=== PATIENT | female | born 1965 | race Caucasian/White ===

== ENCOUNTER → 2019-03-23 | Emergency (ER) | payer OTHER ==
[~2019-03-23] VITALS: Ht 162.6 cm; Wt 113.4 kg
[~2019-03-23] MED LIST: AMITRIPTYLINE H50 MG PO; BUPROPION HCL100 M1 PO; DOXYCYCLINE HY100 MG PO; DULOXETINE HCL30 MG PO; GABAPENTIN800 MG PO; GUAIFENESIN AC473 ML PO; LEVOTHYROXINE100 MCG PO; LEVOTHYROXINE112 MCG PO; LISINOPRIL10 MG PO; OMEPRAZOLE40 MG PO; VALACYCLOVIR1000 MG PO; VITAMIN D250000 UNIT PO
--- OUTSIDE RECORDS SUMMARY | ~2019-03-23 | XMS | Encounter Summary ---
Demographics + + + | Address | [address] | | | [place] [address] | + + + | Home Phone | | + + + | Preferred Language | Unknown | + + + | Marital Status | | + + + | Nondenominational Affiliation | CAT | + + + | Race | White | + + + | Ethnic Group | Not or | + + + Author + + + | Author | [facility] | + + + | Organization | [facility] | + + + | Address | Unknown | + + + | Phone | Unavailable | + + + Support + + +---------+ + | Name | Relationship | Address | Phone | + + +---------+ + | Gerry Moreno | ECON | Unknown | | + + +---------+ + Care Team Providers + +------+ + | Care Telephone Clerks Supervisor Name | Role | Phone | + +------+ + | Felicitas Candelario | PCP | Unavailable | + +------+ + Reason for Visit + + + | Reason | Comments | + + + | Refill Request | | + + + Encounter Details +--------+--------+ + + + | Date | Type | Department | Care Team | Description | +--------+--------+ + + + | 09/27/ | Refill | Otolaryngology | Phoenix Garza, | Refill Request | | 2015 | | Otology Services at | MD [address] | | | | | PPV [address] | [facility] | | | | | [facility] | [place], [place] | | | | | Mailcode: [address]01 | [address] | | | | | PhysicianMoriahs Pedro | [phone] | | | | | [place], [place] | | | | | | [address] | | | | | | [phone] | | | +--------+--------+ + + + Social History + +-------+ +--------+------+ | Tobacco Use | Types | Packs/Day | Years | Date | | | | | Used | | + +-------+ +--------+------+ | Never Smoker | | | | | + +-------+ +--------+------+ + +---+---+---+ | Smokeless Tobacco: | | | | | Never Used | | | | + +---+---+---+ + + +---------+ + | Alcohol Use | Drinks/Week | oz/Week | Comments | + + +---------+ + | Not Asked | | | | + + +---------+ + + + + | Sex Assigned at | Date Recorded | | | | + + + | Not on file | | + + + + + + + | Job Start Date | Occupation | Industry | + + + + | Not on file | Not on file | Not on file | + + + + + + + + | Travel History | Travel Start | Travel End | + + + + + + | No recent travel history available. | + + documented as of this encounter Plan of Treatment Not on filedocumented as of this encounter Visit Diagnoses Not on filedocumented in this encounter"
--- OUTSIDE RECORDS SUMMARY | ~2019-03-23 | XMS | Encounter Summary ---
Demographics + + + | Address | [address] | | | [place] [address] | + + + | Home Phone | | + + + | Preferred Language | Unknown | + + + | Marital Status | | + + + | Protestant Affiliation | CAT | + + + | Race | White | + + + | Ethnic Group | Not or | + + + Author + + + | Organization | Unknown | + + + | Address | Unknown | + + + | Phone | Unavailable | + + + Support + + +---------+ + | Name | Relationship | Address | Phone | + + +---------+ + | Gerry Moreno | ECON | Unknown | | + + +---------+ + Care Team Providers + +------+ + | Care Judge Name | Role | Phone | + +------+ + PCP | Unavailable | + +------+ + Encounter Details +--------+ + + + + | Date | Type | Department | Care Team | Description | +--------+ + + + + | 09/25/ | Office | | Note, Outpatient | Progress Note | | 2004 | Visit-Trans | | Clinic | | | | cribed | | | | +--------+ + + + + Social History + +-------+ +--------+------+ | Tobacco Use | Types | Packs/Day | Years | Date | | | | | Used | | + +-------+ +--------+------+ | Never Assessed | | | | | + +-------+ +--------+------+ + + + | Sex Assigned at [...] + + documented as of this encounter Progress Notes Interface, Mortuary Operations Manager In - 05/23/2005 9:03 AM PDT [id number] RIGO MENDOZA [facility] Date: 09/25/2004 Clinic: OTOLOGY CLINIC Subjective : Ms. 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 She now has symptoms of left-sided headache and hearing loss and a left middle ear effusion as well as MRI suggesting a left-sided middle fossa CSF leak. She is therefore here for a preoperative visit for her impending left temporal craniotomy, middle fossa exploration, and possible repair of CSF leak. She will also be consented for a lumbar drain and possible lumbar peritoneal shunt. Plan: After extensive PAR discussion with the patient, all questions were answered and consent was obtained. The patient was seen and examined by Dr. Jhoan Benton. MD Jhoan Hernandez M.D., F.A.C.S / [place] [id number] / [id number] / [id number] / documented i n this encounter Plan of Treatment Not on filedocumented as of this encounter Visit Diagnoses Not on filedocumented in this encounter"
--- OUTSIDE RECORDS SUMMARY | ~2019-03-23 | XMS | Encounter Summary ---
Demographics + + + | Address | [address] | | | [place] [address] | + + + | Home Phone | | + + + | Preferred Language | Unknown | + + + | Marital Status | | + + + | Restoration Affiliation | CAT | + + + [...] Team Providers + +------+ + | Care Paper Slitter Name | Role | Phone | + +------+ + PCP | Unavailable | + +------+ + Encounter Details +--------+ + + + + | Date | Type | Department | Care Team | Description | +--------+ + + + + | 04/13/ | Office | | Note, Outpatient | Progress Note | | 2005 | Visit-Trans | | Clinic | | [...] as of this encounter Progress Notes Interface, Lead Painter In - 05/24/2005 9:05 AM PDT [id number] RIGO MENDOZA [facility] Date: 04/13/2005 Clinic: Otology Neurotology Clinic Subjective: 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 She denies any aural fullness or otorrhea or rhinorrhea. She does state that since being seen in last December, she had a grand mal seizure as she was being weaned off Xanax and changed to citalopram for her anxiety. She has had no numbness, weakness, tingling, or vision change. A CT scan was done after this seizure and was negative. She was further evaluated by her PCP who is not initiating more of a workup at this point. Physical Examination: Her ears were examined under the high-power binocular operating microscope. On both sides, the tympanic membranes are clear and intact. There are no effusions present. There is normal mobility of the tympanic membranes on both sides. Both incisions are healed very nicely. Her cranial nerve function is intact and equal bilaterally. On the left, her temporalis muscle is somewhat heaped up, thick and bulky. This is nontender for her. Assessment and Plan: Status post bilateral middle fossa encephalocele repair, stable. She describes headache localized to the temporal region, on the left greater than the right. This possibly represents muscle tension headache. Postsurgically, everything looks good. She was seen and examined with Dr. Benton. We will see her back in 4 months. Mike Ken M.D. Jhoan Benton M.D., F.A.C.S. Living Coach Department of Otolaryngology/ Head and Neck Surgery and Department of Neurosurgery / HS [id number] / [id number] / [id number] / [id number] Electronically signed by Jhoan Benton 05-19-2005 01:13:44 PM documented i n this encounter Plan of Treatment Not on filedocumented as of this encounter Visit Diagnoses Not on filedocumented in this encounter"
--- OUTSIDE RECORDS SUMMARY | ~2019-03-23 | XMS | Encounter Summary ---
Demographics + + + | Address | [address] | | | [place] [address] | + + + | Home Phone | | + + + | Preferred Language | Unknown | + + + | Marital Status | | + + + | Jain Affiliation | CAT | + + + [...] Phone | + + +---------+ + | Geryr Moreno | ECON | Unknown | | + + +---------+ + Care Team Providers + +------+ + | Care Hr Recruiter Name | Role | Phone | + [...] as of this encounter Progress Notes Interface, Clinical Research Manager In - 05/24/2005 9:05 AM PDT [id number] RIGO MENDOZA [facility] Date: 04/13/2005 Clinic: I saw the patient with the resident. The resident dictated a full and complete note, containing within are my findings based on my independent history and physical examination including examination under the operating microscope. She has no evidence of recurrent CSF leak. Both middle ears are fully aerated without any fluid. She is doing well with well-healed incisions. The patient appears normal bilaterally. Jhoan Benton M.D., F.A.C.S. Events Solutions Consultant Department of Otolaryngology/ Head and Neck Surgery and Department of Neurosurgery [facility] / [id number] / [id number] / [id number] / [id number] Electronically signed by Jhoan Benton 05-19-2005 01:14:08 PM documented i n this encounter Plan of Treatment Not on filedocumented as of this encounter Visit Diagnoses Not on filedocumented in this encounter"
--- OUTSIDE RECORDS SUMMARY | ~2019-03-23 | XMS | Encounter Summary ---
Demographics + + + | Address | [address] | | | [place] [address] | + + + | Home Phone | | + + + | Preferred Language | Unknown | + + + | Marital Status | | + + + | Jew Affiliation | CAT | + + + | Race | White | + + + | Ethnic Group | Not or | + + + Author + + + | Author | [facility] | + + + | Organization | [facility] | + + + | Address | Unknown | + + + | Phone | Unavailable | + + + Support + + +---------+ + | Name | Relationship | Address | Phone | + + +---------+ + | Gerry Moreno | ECON | Unknown | | + + +---------+ + Care Team Providers + +------+ + | Care Copying Machine Repairer Name | Role | Phone | + [...] Description | +--------+--------+ + + + | 01/19/ | Refill | Otolaryngology | Phoenix Garza, | Refill Request | | 2017 | | Otology Services at | MD [address] | | | | | [facility] [address] | [facility] | | | | | [facility] | [place], [place] | | | | | Mailcode: [address]01 | [address] | | | | | PhysicianMoriahs Pedro | [phone] | | | | | [place], [place] | | | | | | [address] | | | | | | [phone] | | | +--------+--------+ + + + [...]
--- OUTSIDE RECORDS SUMMARY | ~2019-03-23 | XMS | Encounter Summary ---
Demographics + + + | Address | [address] | | | [place] [address] | + + + | Home Phone | | + + + | Preferred Language | Unknown | + + + | Marital Status | | + + + | Jainism Affiliation | CAT | + + + | Race | White | + + + | Ethnic Group | Not or | + + + Author + + + | Author | [facility] | + + + | Organization | [facility] | + + + | Address | Unknown | + + + | Phone | Unavailable | + + + Support + + +---------+ + | Name | Relationship | Address | Phone | + + +---------+ + | Gerry Moreno | ECON | Unknown | | + + +---------+ + Care Team Providers + +------+ + | Care Hand Paster Name | Role | Phone | + +------+ + | Felicitas Candelario | PCP | Unavailable | + +------+ + Reason for Visit + + + | Reason | Comments | + + + | Evaluation of test | | | results | | + + + | Returning Phone Call | | + + + Encounter Details +--------+ + + + + | Date | Type | Department | Care Team | Description | +--------+ + + + + | 05/03/ | Telephone | Otolaryngology | Phoenix Garza, | Evaluation of test | | 2017 | | Otology Services at | [address] | results; Returning | | | | P[facility] [address] | [facility] | Phone Call | | | | [facility] | [place], [place] | | | | | Mailcode: PV01 | [address] | | | | | [facility] | [phone] | | | | | [place], [place] | | | | | | [address] | | | | | | [phone] | | | +--------+ + + + [...]
--- OUTSIDE RECORDS SUMMARY | ~2019-03-23 | XMS | Encounter Summary ---
Demographics + + + | Address | [address] | | | [place] [address] | + + + | Home Phone | | + + + | Preferred Language | Unknown | + + + | Marital Status | | + + + | Mormonism Affiliation | CAT | + + + | Race | White | + + + | Ethnic Group | Not or | + + + Author + + + | Author | [facility] | + + + | Organization | [facility] | + + + | Address | Unknown | + + + | Phone | Unavailable | + + + Support + + +---------+ + | Name | Relationship | Address | Phone | + + +---------+ + | Gerry Moreno | ECON | Unknown | | + + +---------+ + Care Team Providers + +------+ + | Care Pig Farm Manager Name | Role | Phone | + [...] Description | +--------+--------+ + + + | 08/26/ | Refill | Otolaryngology | Phoenix Garza, | Refill Request | | 2015 | | Otology Services at | MD [address] | | | | | PPV [address] | [facility] | | | | | [facility] | [place], [place] | | | | | Mailcode: PV01 | [address] | | | | | PhysicianMoriahs Pedro | [phone] | | | | | [place], [place] | | | | | | [address] | | | | | | [phone] | | | +--------+--------+ + + + [...]
--- OUTSIDE RECORDS SUMMARY | ~2019-03-23 | XMS | Encounter Summary ---
Demographics + + + | Address | [address] | | | [place] [address] | + + + | Home Phone | | + + + | Preferred Language | Unknown | + + + | Marital Status | | + + + | Nondenominational Affiliation | CAT | + + + | Race | White | + + + | Ethnic Group | Not or | + + + Author + + + | Author | [facility] | + + + | Organization | [facility] | + + + | Address | Unknown | + + + | Phone | Unavailable | + + + Support + + +---------+ + | Name | Relationship | Address | Phone | + + +---------+ + | Gerry Moreno | ECON | Unknown | | + + +---------+ + Care Team Providers + +------+ + | Care Wool Shearer Name | Role | Phone | + +------+ + PCP | Unavailable | + +------+ + Encounter Details +--------+ + + + + | Date | Type | Department | Care Team | Description | +--------+ + + + + | 11/26/ | Results | Neurosurgery [address] | Omar Pratt, | | | 2002 | Only | [address] | | | | | | [facility] | | | | | | Mailcode:[id number] | | | | | | [place] [employer] | | | | | | [place], [place] | | | | | | [address] | | | | | | [phone] | | | +--------+ + + + [...] Not on filedocumented as of this encounter Procedures + +--------+ + + + | Procedure Name | Priori | Date/Time | Associated Diagnosis | Comments | | | ty | | | | + +--------+ + + + | SURGICAL PATHOLOGY | Routin | 11/26/2002 | | Results for this | | | e | | | procedure are in the | | | | | | results section. | + +--------+ + + + documented in this encounter Results SURGICAL PATHOLOGY (11/26/2002) + + + + + + | Component | Value | Ref Range | Performed | Pathologist | | | | | At | Signature | + + + + + + | SURGICAL | SOURCE OF SPECIMEN:A | | [facility] | | | PATHOLOGY | Brain Final Pathologic | | DEPARTMENT | | | | Diagnosis:Brain, | | OF | | | | excision: - | | PATHOLOGY | | | | Fragment of gliotic, | | | | | | dysplastic hwang matter | | | | | | Case reviewed | | | | | | by:Jadon Mejia, | | | | | | M.Kari/NeuropathologistT:0 | | | | | | 11/28/02:re I have | | | | | | reviewed all diagnostic | | | | | | slides and have edited | | | | | | the gross | | | | | | and/ormicroscopic | | | | | | portion of this report | | | | | | as part of my pathologic | | | | | | assessment andfinal | | | | | | diagnosis. Clinical | | | | | | History:The patient is a | | | | | | 37 year old female who | | | | | | presents with a right | | | | | | earcerebrospinal fluid | | | | | | leak. Gross | | | | | | Description:One specimen | | | | | | is received in formalin | | | | | | labeled, | | | | | | "brain". Received on | | | | | | Telfais one irregular | | | | | | fragment of soft to | | | | | | firm, hendricks to red tissue | | | | | | measuring 0.8x 0.5 x 0.2 | | | | | | cm. Cassette Index:A1, | | | | | | ASSP:GM:reRendering | | | | | | Diagnostician: Malvin | | | | | | cristian Mejia | | | | | | MMaryPathologistElectroni | | | | | | anthony Signed | | | | | | 11/28/2002Comment: | | | | | | SOURCE OF SPECIMEN: | | | | | | Brain | | | | + + + + + + + + | Specimen | + + | | + + + + + + + | Performing | Address | City/State/Zipcode | Phone Number | | Organization | | | | + + + + + | [facility] | [address] | [place] [address] | | | PATHOLOGY | [address] | | | + + + + + | [facility] | [address] | [place] [address] | | | PATHOLOGY | [address] | | | + + + + + documented in this encounter Visit Diagnoses Not on filedocumented in this encounter
--- OUTSIDE RECORDS SUMMARY | ~2019-03-23 | XMS | Encounter Summary ---
Demographics + + + | Address | [address] | | | [place] [address] | + + + | Home Phone | | + + + | Preferred Language | Unknown | + + + | Marital Status | | + + + | Bahai Affiliation | CAT | + + + [...] Team Providers + +------+ + | Care Chronic Disease Epidemiologist Name | Role | Phone | + +------+ + PCP | Unavailable | + +------+ + Encounter Details +--------+ + + + + | Date | Type | Department | Care Team | Description | +--------+ + + + + | 10/15/ | Discharge | | Summary, Discharge | D/C Summary ODDS | | 2003 | Summary-Tra | | | | | | nscribed | | | | +--------+ + + [...] + + documented as of this encounter Discharge Summaries Interface, Reduction Furnace Operator In - 05/23/2005 12:40 AM PDT [id number] 10/15/2004 [id number] RIGO MENDOZA Admission Date: 10/12/2004 Discharge Date: 10/15/2004 Staff Physician: Omar Pratt Jr., M.D. Principal Final Diagnosis: Tegmen defect. Principal Procedure: Left middle cranial fossa repair with a lumbar drain placement. Reason for Admission and Hospital Course: This is a 39-year-old female with a history of a right middle fossa encephalocele. She presented with symptoms that were similar to prior to her encephalocele removal and it was assumed that she had a probable left middle fossa CSF leak. The patient was brought to the operating room on October 12, 2004 for repair. The patient tolerated the procedure well. During the operation, she had a lumbar drain placed. It put out 15 cc an hour immediately postoperatively. Her neuro examination was intact. Her cranial nerves were intact. She has 5/5 strength in the upper and lower extremities. By postoperative day number one the patient was on devlin status doing well. On postoperative day number two at about 10:00 p.m. her lumbar drain was clamped. By postoperative day number three the patient had demonstrated no leaking from her wound or any other orifice in her head. She had minimal complaints of pain as well as a tiny bit of dizziness although no headache. Her neuro examination was nonfocal and normal. She did have a normal bite; however, it was difficult to open her mouth secondary to temporalis manipulation during the case. The patient will be seen by physical therapy and occupational therapy today if she gets up and ambulates she is okay to go home. Again, the lumbar drain was removed on postoperative day number three. Discharge Instruction(s): Diet: Not dictated. Activity: Not dictated. Followup: Not dictated. Isamar Zacarias Jr., M.D. VW/x90 [id number] Electronically signed by Omar Pratt 10-22-2004 02:26:41 PM documented i n this encounter Plan of Treatment Not on filedocumented as of this encounter Visit Diagnoses Not on filedocumented in this encounter"
--- OUTSIDE RECORDS SUMMARY | ~2019-03-23 | XMS | Encounter Summary ---
Demographics + + + | Address | [address] | | | [place] [address] | + + + | Home Phone | | + + + | Preferred Language | Unknown | + + + | Marital Status | | + + + | Anglican Affiliation | CAT | + + + | Race | White | + + + | Ethnic Group | Not or | + + + Author + + + | Author | [facility] | + + + | Organization | [facility] | + + + | Address | Unknown | + + + | Phone | Unavailable | + + + Support + + +---------+ + | Name | Relationship | Address | Phone | + + +---------+ + | Gerry Moreno | ECON | Unknown | | + + +---------+ + Care Team Providers + +------+ + | Care Assistant Professor Name | Role | Phone | + [...] Description | +--------+--------+ + + + | 11/23/ | Refill | Otolaryngology | Phoenix Garza, | Refill Request | | 2016 | | Otology Services at | MD [address] | | | | | [address] | [facility] | | | | | [facility] | [place], [place] | | | | | Mailcode: [address] | [address] | | | | | PhysicianMoriahs Pedro | [phone] | | | | | [place], [place] | | | | | | [address] | | | | | | [phone] | | | +--------+--------+ + + + [...]
--- OUTSIDE RECORDS SUMMARY | ~2019-03-23 | XMS | Encounter Summary ---
Demographics + + + | Address | [address] | | | [place] [address] | + + + | Home Phone | | + + + | Preferred Language | Unknown | + + + | Marital Status | | + + + | Jainism Affiliation | CAT | + + + | Race | White | + + + | Ethnic Group | Not or | + + + Author + + + | Author | [facility] | + + + | Organization | [facility] | + + + | Address | Unknown | + + + | Phone | Unavailable | + + + Support + + +---------+ + | Name | Relationship | Address | Phone | + + +---------+ + | Gerry Moreno | ECON | Unknown | | + + +---------+ + Care Team Providers + +------+ + | Care Abrasive Coating Machine Operator Name | Role | Phone | + +------+ + | Felicitas Candelario | PCP | Unavailable | + +------+ + Encounter Details +--------+ + + + + | Date | Type | Department | Care Team | Description | +--------+ + + + + | 01/26/ | Document-Sc | Health Information | Unknown . | | | 2015 | anned | Services [address] | | | | | [address] | | | | | | Road Mailcode: | | | | | | [address] | | | | | | [facility] | | | | | | [place], [place] | | | | | | [address] | | | | | | [phone] | | | +--------+ + + + [...] | + +--------+ + + + | RADIOLOGY | | 01/27/2016 | | Results for this | | | | 12:00 AM | | procedure are in the | | | | PDT | | results section. | + +--------+ + + + documented in this encounter Results RADIOLOGY (01/27/2016 12:00 AM PDT) + + + | Narrative | Performed At | + + + | | | + + + documented in this encounter Visit Diagnoses Not on filedocumented in this encounter"
--- OUTSIDE RECORDS SUMMARY | ~2019-03-23 | XMS | Encounter Summary ---
Demographics + + + | Address | [address] | | | [place] [address] | + + + | Home Phone | | + + + | Preferred Language | Unknown | + + + | Marital Status | | + + + | Buddhist Affiliation | CAT | + + + [...] Team Providers + +------+ + | Care Research Affiliate Name | Role | Phone | + +------+ + PCP | Unavailable | + +------+ + Encounter Details +--------+ + + + + | Date | Type | Department | Care Team | Description | +--------+ + + + + | 10/12/ | Orders Only | | Record, Operation | | | 2004 | | | | | +--------+ + + [...] | + +--------+ + + + | OPERATION RECORD | | 10/12/2004 | | Results for this | | | | | | procedure are in the | | | | | | results section. | + +--------+ + + + documented in this encounter Results OPERATION RECORD (10/12/2004) + + | Transcriptions | + + | Interface, Guidance Consultant In - 10/14/2005 9:09 PM PST | | [id number] | | [id number] RIGO MENDOZA | | | | Date: 10/12/2004 | | | | Attending Surgeon: Omar Pratt M.D. | | | | Monitor Tech(s): Warren Oneill M.D. | | | | Co-Surgeon: | | Jhoan Benton M.D., F.A.C.S. | | | | Preoperative Diagnosis(es): | | Left temporal encephalocele. | | | | Postoperative Diagnosis(es): | | Left temporal encephalocele. | | | | Procedures Performed: | | 1. Left temporal craniotomy for repairs of encephalocele. | | 2. Norian cranioplasty. | | 3. Utilization of high-power microscopy for microdissection. | | 4. Placement of lumbar drain. | | 5. Facial nerve monitoring. | | | | | | Anesthesia: | | General endotracheal. | | | | Estimated Blood Loss: | | 200 mL. | | | | Findings: | | 1. Thin left mastoid air cells with small bony defects. | | 2. Small dural defect, medial to mastoid. | | | | | | Drain: | | Lumbar drain. | | | | Complications: | | | | Specimens: | | None. | | | | Indications: | | Mrs. 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 The | | patient presented more recently with left sided headaches and decreased | | hearing on the left. The patient underwent MRI which demonstrated possible | | encephalocele on the left. | | | | Procedure: | | The patient was properly identified in the preoperative area. She was then | | brought to the operating room, placed under general anesthesia, and | | intubated. The patient was then placed on the operating table in the right | | lateral decubitus position. The patient's lower lumbar region was prepped | | and draped in normal sterile fashion. | | | | We began with the lumbar spine needle which was inserted near the midline | | into the lower lumbar level. We placed the needle into the thecal sac and | | obtained clear CSF on return. The lumbar drainage catheter was then | | inserted. The needle was then removed and the remainder of the catheter | | was connected to the drainage system. The patient at this point was placed | | back in the supine position and was placed in a Flores warhead maintenance specialist which | | was attached to the [place] frame. The facial nerve electrodes were | | placed per standard protocol. The patient's head was turned to the right, | | and a shoulder roll was placed in the left shoulder. The patient's left | | temporal region was prepped and draped in a normal sterile fashion. | | | | We began by making an approximately 7-cm incision in the left temporal | | region. The incision was previously instilled with 1% lidocaine mixed with | | Marcaine. Incision was carried along the subcutaneous tissues and was made | | with a #10 blade. We placed Nestor clips for hemostasis. We were able to | | divide the temporalis muscle with multiple electrocautery. We placed | | cerebellar retractors and then Gelpi retractors for adequate exposure. We | | were eventually able to expose the zygoma with the aid of blunt dissection | | with the joker instrument as well as sharp dissection with a monopolar. We | | also were able to elevate the temporalis muscle with the joker instrument | | as well. Once we were comfortable with the exposure we then proceeded with | | performance of a left temporal craniotomy in a standard fashion. We | | created 8-mm bur hole with Anspach drill. The craniotomy was performed | | with the craniotome in the standard fashion. The bone flap was removed. | | Of note the underlying dura was markedly adherent to the inner table of the | | skull flap. We did not encounter a durotomy as the inferior portion of our | | craniotomy appeared. The dura was repaired primarily initially and was | | noted to be under tension inferiorly; so we therefore placed a Lyoplant | | duraplasty in this region. We did remove temporal bone with the Adson | | rongeurs to improve our exposure and as well to expose the inferior portion | | of the dura to assist in our closure. At this point, once this was | | accomplished, the microscope which had been previously prepped and draped | | was then brought into the field, we were able to investigate the temporal | | floor on the left to identify this patient's encephalocele. There did not | | appear to be one on initial inspection. We were able to identify the | | greater superficial petrosal nerve which was intact as well as the carotid | | artery which was verified with the micro Doppler. In addition, there was a | | fair amount of bleeding from the middle meningeal artery as it was entering | | the foramen spinosum. This was coagulated with bipolar and cut. There was | | no further bleeding. There were no obvious dural defects which were noted. | | We did however visualize what appeared to be thinning of the mastoid air | | cells. There were several small bony defects which were identified on | | further inspection. In addition, we did note a small dural defect which | | was noted medial to the mastoid. There however did not appear to be any | | further bony defects which were noted. At this point, we were satisfied | | with our exploration and proceeded with performance of a Norian | | cranioplasty over the mastoid to correct the bony defects which were | | identified. In addition, we placed Lyoplant in areas which we felt the | | dura was thinned. After this was performed, we covered this with DuraGen. | | This was followed by a Tisseel. There was no CSF leak noted. At this | | point, once we were satisfied with our repair, we then proceeded with wound | | closure. Several dural tack ups were placed at the periphery of the | | circumference of the craniotomy and these were sewn in with 4-0 Nurolon. | | The bone flap itself was replaced with the Synthes cranial plating set. At | | this point, the wound was copiously irrigated and dried. The temporalis | | muscle was reapproximated with 0 Vicryl in interrupted fashion. The | | subcutaneous tissues were closed with 3-0 Vicryl in interrupted fashion and | | the skin was finally closed 4-0 Rapide in running fashion. The wound was | | copiously irrigated, dried, and bacitracin ointment was applied. The | | patient was removed from [place] warhead maintenance specialist, extubated, and transferred | | to her ICU bed uneventfully. There were no complications. | | | | Dr. Omar Pratt and Dr. Jhoan Benton were present for the critical | | portions of this case. | | | | | | | | | | Warren Oneill M.D. | | | | | | | | Omar Pratt M.D. | | | | WR / HS | | [id number] / [id number] / [id number] / [id number] | | | | | | | | | | | | Electronically signed by Omar Pratt 10-15-2004 05:42:14 PM | + + documented in this encounter Visit Diagnoses Not on filedocumented in this encounter"
--- OUTSIDE RECORDS SUMMARY | ~2019-03-23 | XMS | Encounter Summary ---
Demographics + + + | Address | [address] | | | [place] [address] | + + + | Home Phone [...] Team Providers + +------+ + | Care Ag Equipment Field Service Technician Name | Role | Phone | + [...] | [facility] [address] | [facility] | | | | | [facility] | [place], [place] | | | | | Mailcode: PV01 | [address] | | | | | PhysicianMoriahs Pedro | [phone] | | | | | [place], [place] | | | | | | [address] | | | | | | [phone] | | | +--------+--------+ + + + [...]
--- OUTSIDE RECORDS SUMMARY | ~2019-03-23 | XMS | Encounter Summary ---
Demographics + + + | Address | [address] | | | [place] [address] | + + + | Home Phone | | + + + | Preferred Language | Unknown | + + + | Marital Status | | + + + | Amish Affiliation | CAT | + + + | Race | White | + + + | Ethnic Group | Not or | + + + Author + + + | Author | [facility] | + + + | Organization | [facility] | + + + | Address | Unknown | + + + | Phone | Unavailable | + + + Support + + +---------+ + | Name | Relationship | Address | Phone | + + +---------+ + | Gerry Moreno | ECON | Unknown | | + + +---------+ + Care Team Providers + +------+ + | Care Irrigator Name | Role | Phone | + [...] Description | +--------+--------+ + + + | 12/23/ | Refill | Otolaryngology | Phoenix Garza, | Refill Request | | 2016 | | Otology Services at | MD [address] | | | | | [facility] [address] | [facility] | | | | | [facility] | [place], [place] | | | | | Mailcode: [address] | [address] | | | | | PhysicianMoriahs Pedro | [phone] | | | | | [place], [place] | | | | | | [address] | | | | | | [phone] | | | +--------+--------+ + + + [...]
--- OUTSIDE RECORDS SUMMARY | ~2019-03-23 | XMS | Encounter Summary ---
Demographics + + + | Address | [address] | | | [place] [address] | + + + | Home Phone | | + + + | Preferred Language | Unknown | + + + | Marital Status | | + + + | Sabianism Affiliation | CAT | + + + | Race | White | + + + | Ethnic Group | Not or | + + + Author + + + | Author | [facility] | + + + | Organization | [facility] | + + + | Address | Unknown | + + + | Phone | Unavailable | + + + Support + + +---------+ + | Name | Relationship | Address | Phone | + + +---------+ + | Gerry Moreno | ECON | Unknown | | + + +---------+ + Care Team Providers + +------+ + | Care Physician Practice Market Manager Name | Role | Phone | + +------+ + | Samy Carlos DO | PCP | Unavailable | + +------+ + Reason for Visit +--------+ + | Reason | Comments | +--------+ + | Other | csf leak | +--------+ + Encounter Details +--------+ + + + + | Date | Type | Department | Care Team | Description | +--------+ + + + + | 05/16/ | Emergency | [facility] Emergency | | | | 2010 | | Department [address] | | | | | [address] | | | | | | [facility] | | | | | | [place] [address] | | | | | | [phone] | | | +--------+ + + + + Social History + +-------+ +--------+------+ | Tobacco Use | Types | Packs/Day | Years | Date | | | | | Used | | + +-------+ +--------+------+ | Never Smoker | | | | | + +-------+ +--------+------+ + + +---------+ + | Alcohol Use [...]
--- OUTSIDE RECORDS SUMMARY | ~2019-03-23 | XMS | Encounter Summary ---
Demographics + + + | Address | [address] | | | [place] [address] | + + + | Home Phone | | + + + | Preferred Language | Unknown | + + + | Marital Status | | + + + | Evangelical Affiliation | CAT | + + + [...] Team Providers + +------+ + | Care Motor Overhauler Name | Role | Phone | + +------+ + PCP | Unavailable | + +------+ + Encounter Details +--------+ + + + + | Date | Type | Department | Care Team | Description | +--------+ + + + + | 08/14/ | Office | | Note, Outpatient | [...] as of this encounter Progress Notes Interface, Starter Mechanic In - 05/23/2005 8:26 AM PDT [id number] RIGO MENDOZA [facility] Date: 08/14/2004 Clinic: Otology Clinic Subjective: Ms. Moreno is a patient who had previous right middle fossa encephalocele that was repaired on November 2002. She was last seen by Dr. Benton in December 2003. Over the last 6 months, she has developed fullness and decreased hearing in her left ear. She has also had severe left-sided headaches. She denies any vertigo or dysequilibrium. These symptoms are very similar to the symptoms she had tolerated after her right-sided middle fossa encephalocele. A recent MRI scan shows significant fluid in the mastoid as well as high signal of fluid in the IAC. Physical examination: A 260 forks were negative bilaterally. A 512 forks were positive bilaterally. Ears were examined under the high-powered binocular operating microscope. On the right, the TM was translucent and intact without evidence of effusion. Middle ear was clear of disease. In the left, there was significant middle ear effusion and decreased mobility of the drum on insufflation. Impression: The patient with previous right-sided middle ear encephalocele now with similar symptoms on the left and evidence of a middle ear effusion. Given the MRI and the effusion in the middle ear, this is definitely concerning for a left-sided middle fossa encephalocele. Dr. Benton will review the scans and plan surgery appropriately for this patient. We will be in contact with him next week. Manuel Godoy MD Resident Otolaryngology Clinic / [place] [id number] / [id number] / [id number] / documented i n this encounter Plan of Treatment Not on filedocumented as of this encounter Visit Diagnoses Not on filedocumented in this encounter"
--- OUTSIDE RECORDS SUMMARY | ~2019-03-23 | XMS | Encounter Summary ---
Demographics + + + | Address | [address] | | | [place] [address] | + + + | Home Phone | | + + + | Preferred Language | Unknown | + + + | Marital Status | | + + + | Church Affiliation | CAT | + + + | Race | White | + + + | Ethnic Group | Not or | + + + Author + + + | Author | [facility] | + + + | Organization | [facility] | + + + | Address | Unknown | + + + | Phone | Unavailable | + + + Support + + +---------+ + | Name | Relationship | Address | Phone | + + +---------+ + | Gerry Moreno | ECON | Unknown | | + + +---------+ + Care Team Providers + +------+ + | Care Nail Welter Name | Role | Phone | + [...] Description | +--------+--------+ + + + | 11/19/ | Refill | Otolaryngology | Phoenix Garza, | Refill Request | | 2016 | | Otology Services at | MD [address] | | | | | [facility] [address] | [facility] | | | | | [facility] | [place], [place] | | | | | Mailcode: [address] | [address] | | | | | PhysicianMoriahs Pedro | [phone] | | | | | [place], [place] | | | | | | [address] | | | | | | [phone] | | | +--------+--------+ + + + [...]
--- OUTSIDE RECORDS SUMMARY | ~2019-03-23 | XMS | Encounter Summary ---
Demographics + + + | Address | [address] | | | [place] [address] | + + + | Home Phone | | + + + | Preferred Language | Unknown | + + + | Marital Status | | + + + | Worship Affiliation | CAT | + + + | Race | White | + + + | Ethnic Group | Not or | + + + Author + + + | Author | [facility] | + + + | Organization | [facility] | + + + | Address | Unknown | + + + | Phone | Unavailable | + + + Support + + +---------+ + | Name | Relationship | Address | Phone | + + +---------+ + | Gerry Moreno | ECON | Unknown | | + + +---------+ + Care Team Providers + +------+ + | Care Food And Beverage Assistant Manager Name | Role | Phone | + +------+ + | Felicitas Candelario | PCP | Unavailable | + +------+ + Reason for Visit + + + | Reason | Comments | + + + | Ear problem | new pt here for ear eval | + + + Consultation (Routine) +--------+--------+ + + + + | Status | Reason | Specialty | Diagnoses / | Referred By | Referred To | | | | | Procedures | Contact | Contact | +--------+--------+ + + + + | Closed | | Otolaryngolog | Diagnoses | Bright, | Ent Otology | | | | y | CSF leak | Phoenix Marley, | [address] | | | | | Procedures | [address] | Jenni Demarco | | | | | CONSULT TO | Cory Garcia | [address] | | | | | ENT OTOLOGY | [place], [place] | Mailcode: | | | | | | [address] | [address] | | | | | | Phone: | Physician's | | | | | | [phone] | Pavilion | | | | | | Fax: | [place], [place] | | | | | | [phone] | [address] | | | | | | | Phone: | | | | | | | [phone] | | | | | | | Fax: | | | | | | | [phone] | +--------+--------+ + + + + Encounter Details +--------+---------+ + + + | Date | Type | Department | Care Team | Description | +--------+---------+ + + + | 05/21/ | Office | Otolaryngology | Phoenix Garza, | Cerebrospinal fluid | | 2016 | Visit | Otology Services at | [address] | leak (Primary Dx); | | | | [facility] [address] | [facility] | Conductive hearing | | | | [facility] | [facility] [place] | loss, middle ear | | | | Mailcode: [address] | [address] | | | | | Physician's Pedro | [phone] | | | | | [place], [place] | | | | | | [address] | | | | | | [phone] | | | +--------+---------+ + + + Social History + +-------+ [...] + + documented as of this encounter Last Filed Vital Signs + + + + + | Vital Sign | Reading | Time Taken | Comments | + + + + + | Blood Pressure | 142/78 | 05/21/2016 3:10 PM | | | | | PDT | | + + + + + | Pulse | 108 | 05/21/2016 3:10 PM | | | | | PDT | | + + + + + | Temperature | - | - | | + + + + + | Respiratory Rate | - | - | | + + + + + | Oxygen Saturation | - | - | | + + + + + | Inhaled Oxygen | - | - | | | Concentration | | | | + + + + + | Weight | 107 kg (236 lb) | 05/21/2016 3:10 PM | | | | | PDT | | + + + + + | Height | 162.6 cm (5' 4") | 05/21/2016 3:10 PM | | | | | PDT | | + + + + + | Body Mass Index | 40.51 | 05/21/2016 3:10 PM | | | | | PDT | | + + + + + documented in this encounter Patient Instructions Patient Instructions Phoenix Garza MD - 05/21/2016 3:19 PM PDTYou need a PCV-13 immu nization and 2 months later you need a PPSV-23 (Pneumovax) vaccination. I have recommended acetazolamide for your CSF leak. You will almost definitely get tingling in your fingers and toes. This is normal, and should get better with time. I'd like to se e you back in 3 months. Thank you so much for seeking care in the Division of Otology, Neurotology, and Skull Base Surgery. We hope we have been able to help you. If you have any questions about your care, please feel free to contact us at one of the num bers below or through [employer]. Your questions can best be answered during business hours at [phone], but you can always reach the [facility] top precipitator operator helper at [phone] to contac t our on-call team. We look forward to taking care of you in the future. Dr. Ricky Garza MD, Director JYOTHI Villegas MA documented in this encounter Progress Notes Phoenix Garza MD - 05/21/2016 3:19 PM PDTFormatting of this note might be different f rom the original. Division of Otology, Neurotology, and Skull Base Surgery Department of Otolaryngology/Head and Neck Surgery [facility] Patient: Nu Moreno Referring Provider: Phoenix Bright MD Author: Phoenix Garza MD Consultation Date: 05/21/2016 REASON FOR VISIT: CSF leak. HISTORY OF PRESENT ILLNESS: 2003 patched right side. 2004 patched left side. Both by Lencho baez. Recentlly started draning from the nose, more from the right than the left. Can go at least a week without haening but then it can come back stronger. Has not been able to c ollect any fluid. Tastes metallic when it occurs. Tested for sugar in fluid recently--says was positive. PAST MEDICAL HISTORY: No past medical history on file. PAST SURGICAL HISTORY: History reviewed. No pertinent past surgical history. ALLERGIES: Allergies Allergen Reactions Sulfa (Sulfonamide Antibiotics) MEDICATIONS: alprazolam 0.5 mg Oral Tablet, Take 0.5 mg by mouth three times daily. alprazolam 1 mg Oral Tablet, Take 1 mg by mouth three times daily. ALPRAZolam 2 mg Oral Tablet, Take 2 mg by mouth once daily. citalopram 40 mg Oral Tablet, Take 40 mg by mouth once daily. cloNIDine 0.1 mg Oral Tablet, Take 0.1 mg by mouth two times daily. escitalopram (LEXAPRO) 10 mg Oral Tablet, Take 10 mg by mouth once daily. HYDROcodone-acetaminophen (VICODIN) 5-500 mg Oral Tablet, Take 1 Tab by mouth every four ho urs as needed. Not to exceed 8 tablets per any 24 hour period. (Not to exceed 4000 mg of nathen taminophen from all products per 24 hour period.) Levothyroxine 75 mcg Oral Capsule, Take by mouth once daily. IMMUNIZATIONS ... FAMILY HISTORY: Family History None SOCIAL HISTORY: Social History Substance Use Topics Smoking status: Never Smoker Smokeless tobacco: Never Used Alcohol Use: None REVIEW OF SYSTEMS: A full 10 point review of systems was completed and is negative, except for the pertinent p ositives and negatives as noted above in the history of present illness. PHYSICAL EXAM: Vitals: Ht 1.626 m (5' 4"), Wt 107.049 kg (236 lb), BP 142/78, Pulse 108, BMI 40.49 kg/(m^2 ). Constitutional: Non-toxic, no apparent distress. Face: Normal facial contour. Eyes: Extraocular movements intact. Sclera non-icteric. Ears: Examined under binocular microscopic visualization. Left: Normal aeration. Right: Monomeric area posteroinferior. Atrophic drum in this area; mobile; aerated. Nose: No external nasal deformity. Respiratory: Unlabored. No cyanosis. Cardiovascular: Normal perfusion. No edema. Skin: No suspicious skin lesions noted on scalp, face, ears, or neck. Neuro: Normal gait. Cranial nerves: II, III, IV, : Normal range of movement. No nystagmus. VII: No facial weakness. X: Voice grossly normal. XI: Shoulder motion normal. XII: Tongue motion normal. Psychiatric: Alert and oriented. Normal affect. IMAGING: CT scan from 02/04/2016 reviewed and interpreted by me indicates normal aeration. AUDIOGRAM: Audiogram from today reviewed and interpreted by me indicates slight conductive hearing los s with normal tymps. ASSESSMENT: Possible intermittent CSF leak. I am reluctant to pursue surgery given that she is current ly aerated on the right side. PLAN: Acetazolamide trial. PCV and Pneumovax immunizations. Return 3 months. At that time we may pursue further imaging or planning for surgery if her symptoms are continuing. Phoenix Garza MD Director, Division of Otology, Neurotology, and Skull Base Surgery Director, Cochlear Implant Program Department of Otolaryngology-Head and Neck Surgery [address], [address] [address] tel: [phone] fax: [phone] [email or web address] documented in this encounter Plan of Treatment Not on filedocumented as of this encounter Visit Diagnoses + + | Diagnosis | + + | Cerebrospinal fluid leak - Primary Other specified disorder of nervous system | + + | Conductive hearing loss, middle ear | + + documented in this encounter
--- OUTSIDE RECORDS SUMMARY | ~2019-03-23 | XMS | Encounter Summary ---
Demographics + + + | Address | [address] | | | [place] [address] | + + + | Home Phone | | + + + | Preferred Language | Unknown | + + + | Marital Status | | + + + | Latter Day Affiliation | CAT | + + + | Race | White | + + + | Ethnic Group | Not or | + + + Author + + + | Author | [facility] | + + + | Organization | [facility] | + + + | Address | Unknown | + + + | Phone | Unavailable | + + + Support + + +---------+ + | Name | Relationship | Address | Phone | + + +---------+ + | Gerry Moreno | ECON | Unknown | | + + +---------+ + Care Team Providers + +------+ + | Care Associate Professor Of Philosophy Name | Role | Phone | + +------+ + PCP | Unavailable | + +------+ + Reason for Visit + + + | Reason | Comments | + + + | Hearing loss | | + + + Audiology Services (Routine) +--------+--------+ + + + + | Status | Reason | Specialty | Diagnoses / | Referred By | Referred To | | | | | Procedures | Contact | Contact | +--------+--------+ + + + + | Closed | | Supervisor Screen Making | Procedures | [facility] | Ent | | | | | CONSULT TO | MD Jhoan | Audiology [facility] | | | | | ENT | [facility] | [address] | | | | | AUDIOLOGY | Otolaryngolo | [facility] | | | | | | [facility] | [address] | | | | | | [address] | Mailcode: | | | | | | [address] | [address] | | | | | | [place], [place] | Physician's | | | | | | [address] | Pavilion | | | | | | Phone: | [place], [place] | | | | | | [phone] | [address] | | | | | | Fax: | Phone: | | | | | | | [phone] | | | | | | | Fax: | | | | | | | [phone] | +--------+--------+ + + + + Encounter Details +--------+---------+ + + + | Date | Type | Department | Care Team | Description | +--------+---------+ + + + | 11/12/ | Office | Otolaryngology | Liliana Sales, | UNSPECIFIED | | 2005 | Visit | Audiology Services | AuD,CCC-A [address] | SENSORINEURAL | | | | at [facility] [address] | [facility] [address] | HEARING LOSS | | | | [facility] | [place] [address] | (Primary Dx) | | | | Mailcode: [address] | [phone] | | | | | Phys[facility]ilion | | | | | | [place], [place] | | | | | | [address] | | | | | | [phone] | | | +--------+---------+ + + + [...] documented as of this encounter Progress Notes Liliana Sales AuD, CCC-Cornelio - 11/12/2005 2:52 PM Anne Marie Moreno is a 40 y.o. female here today for a hearing evaluation. Pure tone audiometry reveals hearing within normal limits, but with a mild conductive component in the low and high frequencies (AU). Word recognition was excellent at conversational loudness levels in a quiet sound wang (AU).See ENT progress notes. Nakia rocha his encounter Plan of Treatment + + +--------+ + + | Name | Type | Priori | Associated Diagnoses | Order Schedule | | | | ty | | | + + +--------+ + + | [facility] COMPREHENSIVE | Procedures | Routin | Unspecified | Ordered: 11/12/2005 | | HEARING TEST | | e | Sensorineural | | | | | | Hearing Loss | | + + +--------+ + + documented as of this encounter Visit Diagnoses + + | Diagnosis | + + | Sensorineural hearing loss, unspecified - Primary | + + documented in this encounter"
--- OUTSIDE RECORDS SUMMARY | ~2019-03-23 | XMS | Encounter Summary ---
Demographics + + + | Address | [address] | | | [place] [address] | + + + | Home Phone | | + + + | Preferred Language | Unknown | + + + | Marital Status | | + + + | Druze Affiliation | CAT | + + + | Race | White | + + + | Ethnic Group | Not or | + + + Author + + + | Author | [facility] | + + + | Organization | [facility] | + + + | Address | Unknown | + + + | Phone | Unavailable | + + + Support + + +---------+ + | Name | Relationship | Address | Phone | + + +---------+ + | Gerry Moreno | ECON | Unknown | | + + +---------+ + Care Team Providers + +------+ + | Care Site Auditor Name | Role | Phone | + +------+ + | Felicitas Candelario | PCP | Unavailable | + +------+ + Reason for Visit + + + | Reason | Comments | + + + | Hearing loss | here for CSF leak f/u | + + + Consultation (Routine) +--------+--------+ [...] | y | CSF leak | Phoenix L, | [facility] [address] | | | | | Procedures | [address] | [place] | | | | | CONSULT TO | Cory Garcia | [address] | | | | | ENT OTOLOGY | [place], [place] | Mailcode: | | | | | | [address] | [address] | | | | | | Phone: | Physician's | | | | | | [phone] | Pavilion | | | | | | Fax: | [place], [place] | | | | | | [phone] | [address] | | | | | | | Phone: | | | | | | | [phone] | | | | | | | Fax: | | | | | | | [phone] | +--------+--------+ + + + + Encounter Details +--------+---------+ + + + | Date | Type | Department | Care Team | Description | +--------+---------+ + + + | 08/20/ | Office | Otolaryngology | Phoenix Garza, | CSF otorrhea | | 2016 | Visit | Otology Services at | [address] | (Primary Dx); | | | | [facility] [address] | [facility] | Conductive hearing | | | | [facility] | [place], [place] | loss, middle ear | | | | Mailcode: [address] | [address] | | | | | Physician'dianna Vasquez | [phone] | | | | | [place], [place] | | | | | | [address] | | | | | | [phone] | | | +--------+---------+ + + + [...] + + documented as of this encounter Patient Instructions Patient Instructions Jonathon Peterson - 08/20/2016 9:51 AM PDTPlease keep going with your nathen tazolamide Please use Flonase or another OTC nasal steroid spray regularly (daily) as directed Please irrigate your nose twice per day with saline and use Vaseline around the nostrils (b efore you spray with Flonase) Return 3 months. Thank you so much for seeking care in the Division of Otology, Neurotology, and Skull Base Surgery. We hope we have been able to help you. If you have any questions about your care, please feel free to contact us at one of the num bers below or through [employer]. Your questions can best be answered during business hours at [phone], but you can always reach the [facility] steam plant control room operator at [phone] to contac t our on-call team. We look forward to taking care of you in the future. Dr. Ricky Garza MD, Director JYOTHI Villegas MA documented in this encounter Progress Notes Phoenix Garza MD - 08/20/2016 9:43 AM PDTFormatting of this note might be different f rom the original. Division of Otology, Neurotology, and Skull Base Surgery Department of Otolaryngology/Head and Neck Surgery [facility] Patient: Nu Moreno Referring Provider: Phoenix Bright MD Author: Phoenix Garza MD Consultation Date: 08/20/2016 REASON FOR VISIT: Nasal drainage HISTORY OF PRESENT ILLNESS: Nu Moreno is a 51 year old female with a history of patched right side 2004 and patch ed left side 2004 both by [facility] who returns in follow-up. The patient was experiencing n amanda drainage, more from right than left, but was well aerated on the right side. Acetazolam river trial and recommended PCV and pneumovax immunizations. Today patient states that she sti ll feels that her ear is plugged and nose is running however she is not experiencing daily d rainage like previously. Additionally she reports nasal crusting. PAST MEDICAL HISTORY: No past medical history on file. PAST SURGICAL HISTORY: No past surgical history on file. ALLERGIES: Allergies Allergen Reactions Sulfa (Sulfonamide Antibiotics) MEDICATIONS: acetaZOLAMIDE 125 mg oral tablet, Take 1 tablet by mouth once daily. amitriptyline 50 mg oral tablet, buPROPion SR 100 mg oral tablet extended release, Take 100 mg by mouth once daily. cyanocobalamin, vitamin B-12, (VITAMIN B-12) 5,000 mcg sublingual tablet, sublingual, Place under tongue. DULOXETINE HCL (CYMBALTA ORAL), Take by mouth. escitalopram (LEXAPRO) 10 mg Oral Tablet, Take 10 mg by mouth once daily. GABAPENTIN ORAL, Take by mouth. Levothyroxine 75 mcg Oral Capsule, Take by mouth once daily. levothyroxine 88 mcg oral tablet, Take 88 mcg by mouth once daily. VITAMIN D2 50,000 unit oral capsule, IMMUNIZATIONS PCV 7 Not PPSV 23 not received yet. FAMILY HISTORY: Family History None SOCIAL HISTORY: Social History Substance Use Topics Smoking status: Never Smoker Smokeless tobacco: Never Used Alcohol Use: None REVIEW OF SYSTEMS: A full 10 point review of systems was completed and is negative, except for the pertinent p ositives and negatives as noted above in the history of present illness. PHYSICAL EXAM: Vitals: There were no vitals taken for this visit. Constitutional: Non-toxic, no apparent distress. Face: Normal facial contour. Eyes: Extraocular movements intact. Sclera non-icteric. Ears: Examined under otomicroscopic visualization. Left: Normal aerated middle ear. Right: Completely aerated middle ear. No trace of fluid on either side. Nose: No external nasal deformity. Neck: No adenopathy or masses. Normal range of motion. Respiratory: Unlabored. No cyanosis. Cardiovascular: Normal perfusion. No edema. Skin: No suspicious skin lesions noted on scalp, face, ears, or neck. Neuro: Normal gait. Cranial nerves: II, III, IV, : Normal range of movement. No nystagmus. VII: No facial weakness. X: Voice grossly normal. XI: Shoulder motion normal. XII: Tongue motion normal. Psychiatric: Alert and oriented. Normal affect. AUDIOGRAM: Audiogram from 05/21/2016 reviewed and interpreted by me indicates indicates slight conducti ve hearing loss with normal tymps . ASSESSMENT: Completely aerated middle ear space bilaterally. Reassuring against CSF leak. Ongoing cond ucive hearing loss may be related to previous surgery and impingement of tissue on ossicles. This can be remedied with potential additional surgery. PLAN: Given persistent symptoms but unchanged exam and well aerated bilaterally, reluctant to pur jesus surgery. Recommend she continues with acetazolamide and begin using Flonase or another OTC nasal nery roid spray regularly (daily) as directed. Also recommend irrigating her nose twice per day with saline and using Vaseline around the nostrils (before spraying with Flonase) Return for follow-up in 3 months. At that time I will discuss a possible temporal bone CT scan to evaluate for impingement on the ossicles if she desires. I may also consider a cist ernogram if her nasal symptoms continue. I, Jonathon Peterson, am functioning as a scribe for Phoenix Garza MD. I have reviewed and verified the above scribed note of my visit with this patient as record ed by Jonathon Peterson. Phoenix Garza MD Director, Division of Otology, Neurotology, and Skull Base Surgery Director, Cochlear Implant Program Department of Otolaryngology-Head and Neck Surgery [address], [address] [address] tel: [phone] fax: [phone] [email or web address] documented in this encounter Plan of Treatment Not on filedocumented as of this encounter Procedures + +--------+ + + + | Procedure Name | Priori | Date/Time | Associated Diagnosis | Comments | | | ty | | | | + +--------+ + + + | MO EAR MICROSCOPY | Routin | 08/20/2016 | CSF otorrhea | | | EXAMINATION | e | 10:26 AM | Conductive hearing | | | | | PDT | loss, middle ear | | + +--------+ + + + documented in this encounter Visit Diagnoses + + | Diagnosis | + + | CSF otorrhea - Primary Cerebrospinal fluid otorrhea | + + | Conductive hearing loss, middle ear | + + documented in this encounter"
--- OUTSIDE RECORDS SUMMARY | ~2019-03-23 | XMS | Encounter Summary ---
Demographics + + + | Address | [address] | | | [place] [address] | + + + | Home Phone | | + + + | Preferred Language | Unknown | + + + | Marital Status | | + + + | Rastafari Affiliation | CAT | + + + | Race | White | + + + | Ethnic Group | Not or | + + + Author + + + | Author | [facility] | + + + | Organization | [facility] | + + + | Address | Unknown | + + + | Phone | Unavailable | + + + Support + + +---------+ + | Name | Relationship | Address | Phone | + + +---------+ + | Gerry Moreno | ECON | Unknown | | + + +---------+ + Care Team Providers + +------+ + | Care Steam Station Supervisor Name | Role | Phone | [...] Description | +--------+--------+ + + + | 04/21/ | Refill | Otolaryngology | Phoenix Garza, | Refill Request | | 2016 | | Otology Services at | MD [address] | | | | | [facility] [address] | [facility] | | | | | [facility] | [place], [place] | | | | | Mailcode: [address] | [address] | | | | | PhysicianMoriahs Pedro | [phone] | | | | | [place], [place] | | | | | | [address] | | | | | | [phone] | | | +--------+--------+ + + + [...]
--- OUTSIDE RECORDS SUMMARY | ~2019-03-23 | XMS | Encounter Summary ---
Demographics + + + | Address | [address] | | | [place] [address] | + + + | Home Phone | | + + + | Preferred Language | Unknown | + + + | Marital Status | | + + + | Zoroastrianism Affiliation | CAT | + + + | Race | White | + + + | Ethnic Group | Not or | + + + Author + + + | Author | [facility] | + + + | Organization | [facility] | + + + | Address | Unknown | + + + | Phone | Unavailable | + + + Support + + +---------+ + | Name | Relationship | Address | Phone | + + +---------+ + | Gerry Moreno | ECON | Unknown | | + + +---------+ + Care Team Providers + +------+ + | Care Cartoon Designer Name | Role | Phone | + +------+ + PCP | Unavailable | + +------+ + Encounter Details +--------+ + + + + | Date | Type | Department | Care Team | Description | +--------+ + + + + | 10/12/ | Results | Otolaryngology | Jhoan Benton, | | | 2001 | Only | Otology Services at | [facility] | | | | | [facility] [address] | [facility] | | | | | [facility] | [address] [place] [address] | | | | | Mailcode: PV01 | [address] [place], [place] | | | | | Physician's Pedro | [address] | | | | | [place], [place] | | | | | | [address] | | | | | | [phone] | | | +--------+ + + + [...] | + +--------+ + + + | BASIC METABOLIC SET | Routin | 11/28/2002 | | Results for this | | (NA, K, CL, TCO2, | e | 7:07 AM | | procedure are in the | | BUN, CR, GLU, CA) | | PST | | results section. | + +--------+ + + + | BASIC METABOLIC SET | Urgent | 11/26/2002 | | Results for this | | (NA, K, CL, TCO2, | | 12:30 PM | | procedure are in the | | BUN, CR, GLU, CA) | | PST | | results section. | + +--------+ + + + | TYPE AND SCREEN | Urgent | 11/26/2002 | | Results for this | | | | 7:30 AM | | procedure are in the | | | | PST | | results section. | + +--------+ + + + | ELECTROLYTE SET (NA, | Routin | 11/16/2002 | | Results for this | | K, CL, CO2) | e | 4:35 PM | | procedure are in the | | | | PST | | results section. | + +--------+ + + + | CT HEAD W CONTRAST | Routin | 10/12/2002 | | Results for this | | | e | 10:50 AM | | procedure are in the | | | | PST | | results section. | + +--------+ + + + | X-RAY SPINAL TAP AND | Routin | 10/12/2002 | | Results for this | | ASPIRATION | e | 10:26 AM | | procedure are in the | | | | PST | | results section. | + +--------+ + + + | X-RAY FLUORO GUIDE | Routin | 10/12/2002 | | Results for this | | LOC 4 SPINE INJ | e | 10:26 AM | | procedure are in the | | | | PST | | results section. | + +--------+ + + + documented in this encounter Results BASIC METABOLIC SET (11/28/2002 7:07 AM PST) + +-------+ + + + | Component | Value | Ref Range | Performed | Pathologist | | | | | At | Signature | + +-------+ + + + | GLUCOSE, | 105 | 65 - 110 mg/dL | [facility] | | | PLASMA | | | DEPARTMENT | | | (LAB) | | | OF | | | | | | PATHOLOGY | | + +-------+ + + + | BUN, PLASMA | 11 | 6 - 20 mg/dL | [facility] | | | (LAB) | | | DEPARTMENT | | | | | | OF | | | | | | PATHOLOGY | | + +-------+ + + + | CREATININE | 0.7 | 0.6 - 1.1 mg/dL | [facility] | | | PLASMA | | | DEPARTMENT | | | (LAB) | | | OF | | | | | | PATHOLOGY | | + +-------+ + + + | SODIUM, | 141 | 136 - 145 | [facility] | | | PLASMA | | mmol/L | DEPARTMENT | | | (LAB) | | | OF | | | | | | PATHOLOGY | | + +-------+ + + + | POTASSIUM, | 3.8 | 3.5 - 5.1 | [facility] | | | PLASMA | | mmol/L | DEPARTMENT | | | (LAB) | | | OF | | | | | | PATHOLOGY | | + +-------+ + + + | CHLORIDE, | 107 | 98 - 107 mmol/L | [facility] | | | PLASMA | | | DEPARTMENT | | | (LAB) | | | OF | | | | | | PATHOLOGY | | + +-------+ + + + | TOTAL CO2, | 28 | 23 - 29 mmol/L | [facility] | | | PLASMA | | | DEPARTMENT | | | (LAB) | | | OF | | | | | | PATHOLOGY | | + +-------+ + + + | CALCIUM, | 8.9 | 8.5 - 10.5 | [facility] | | | PLASMA | | mg/dL | DEPARTMENT | | | (LAB) | | | OF | | | | | | PATHOLOGY | | + +-------+ + + + + + | Specimen | + + | | + + + + + + + | Performing | Address | City/State/Zipcode | Phone Number | | Organization | | | | + + + + + | [facility] | [address] [facility] | [place] [address] | | | PATHOLOGY | [address] | | | + + + + + | [facility] | [facility] | [place] [address] | | | PATHOLOGY | [address] | | | + + + + + BASIC METABOLIC SET (11/26/2002 12:30 PM PST) + +---------+ + + + | Component | Value | Ref Range | Performed | Pathologist | | | | | At | Signature | + +---------+ + + + | GLUCOSE, | 131 (H) | 65 - 110 mg/dL | [facility] | | | PLASMA | | | DEPARTMENT | | | (LAB) | | | OF | | | | | | PATHOLOGY | | + +---------+ + + + | BUN, PLASMA | 8 | 6 - 20 mg/dL | [facility] | | | (LAB) | | | DEPARTMENT | | | | | | OF | | | | | | PATHOLOGY | | + +---------+ + + + | CREATININE | 0.8 | 0.6 - 1.1 mg/dL | [facility] | | | PLASMA | | | DEPARTMENT | | | (LAB) | | | OF | | | | | | PATHOLOGY | | + +---------+ + + + | SODIUM, | 138 | 136 - 145 | [facility] | | | PLASMA | | mmol/L | DEPARTMENT | | | (LAB) | | | OF | | | | | | PATHOLOGY | | + +---------+ + + + | POTASSIUM, | 3.6 | 3.5 - 5.1 | [facility] | | | PLASMA | | mmol/L | DEPARTMENT | | | (LAB) | | | OF | | | | | | PATHOLOGY | | + +---------+ + + + | CHLORIDE, | 109 (H) | 98 - 107 mmol/L | [facility] | | | PLASMA | | | DEPARTMENT | | | (LAB) | | | OF | | | | | | PATHOLOGY | | + +---------+ + + + | TOTAL CO2, | 24 | 23 - 29 mmol/L | [facility] | | | PLASMA | | | DEPARTMENT | | | (LAB) | | | OF | | | | | | PATHOLOGY | | + +---------+ + + + | CALCIUM, | 8.2 (L) | 8.5 - 10.5 | [facility] | | | PLASMA | | mg/dL | DEPARTMENT | | | (LAB) | | | OF | | | | | | PATHOLOGY | | + +---------+ + + + + + | Specimen | + + | | + + + + + + + | Performing | Address | City/State/Zipcode | Phone Number | | Organization | | | | + + + + + | [facility] | [address] | [place] [address] | | | PATHOLOGY | [address] | | | + + + + + | [facility] | [address] | [place] [address] | | | PATHOLOGY | [address] | | | + + + + + TYPE AND SCREEN (11/26/2002 7:30 AM PST) + +-------+ + + + | Component | Value | Ref Range | Performed | Pathologist | | | | | At | Signature | + +-------+ + + + | ABO GROUP | O | | [facility] | | | | | | DEPARTMENT | | | | | | OF | | | | | | PATHOLOGY | | + +-------+ + + + | RH TYPE | POS | | [facility] | | | | | | DEPARTMENT | | | | | | OF | | | | | | PATHOLOGY | | + +-------+ + + + | ANTIBODY | NEG | | [facility] | | | SCREEN | | | DEPARTMENT | | | | | | OF | | | | | | PATHOLOGY | | + +-------+ + + + + + | Specimen | + + | | + + + + + | Narrative | Performed At | + + + | SPEC. JANNETATES 11/30/02 @ 0700 | [facility] | | | DEPARTMENT OF | | | PATHOLOGY | + + + + + + + + | Performing | Address | City/State/Zipcode | Phone Number | | Organization | | | | + + + + + | [facility] | [address] | [place] [address] | | | PATHOLOGY | [address] | | | + + + + + | [facility] | [address] | [place] [address] | | | PATHOLOGY | [address] | | | + + + + + ELECTROLYTE SET (11/16/2002 4:35 PM PST) + +-------+ + + + | Component | Value | Ref Range | Performed | Pathologist | | | | | At | Signature | + +-------+ + + + | SODIUM, | 136 | 136 - 145 | [facility] | | | PLASMA | | mmol/L | DEPARTMENT | | | (LAB) | | | OF | | | | | | PATHOLOGY | | + +-------+ + + + | POTASSIUM, | 4.0 | 3.5 - 5.1 | [facility] | | | PLASMA | | mmol/L | DEPARTMENT | | | (LAB) | | | OF | | | | | | PATHOLOGY | | + +-------+ + + + | CHLORIDE, | 103 | 98 - 107 mmol/L | [facility] | | | PLASMA | | | DEPARTMENT | | | (LAB) | | | OF | | | | | | PATHOLOGY | | + +-------+ + + + | TOTAL CO2, | 24 | 23 - 29 mmol/L | [facility] | | | PLASMA | | | DEPARTMENT | | | (LAB) | | | OF | | | | | | PATHOLOGY | | + +-------+ + + + + + | Specimen | + + | | + + + + + + + | Performing | Address | City/State/Zipcode | Phone Number | | Organization | | | | + + + + + | [facility] | [address] | [place] [address] | | | PATHOLOGY | [address] | | | + + + + + | [facility] | [address] | [place] [address] | | | PATHOLOGY | [address] | | | + + + + + CT HEAD W CONTRAST (10/12/2002 10:50 AM PST) + + + + + + | Component | Value | Ref Range | Performed | Pathologist | | | | | At | Signature | + + + + + + | CT HEAD W | Radiologist 1: HOWARD | | | | | LAINE | Isamar HOPPER-Radiologist | | | | | | 2: WARD LAWRENCE | | | | | | IsamarCISTERNOGRAM: | | | | | | Dictated | | | | | | 10/12/2002 CLINICAL | | | | | | INFORMATION: 37-year- | | | | | | old patient with a right | | | | | | sided mastoidCSF | | | | | | effusion. COMPARISON: | | | | | | None available. | | | | | | TECHNIQUE: [id number] | | | | | | was not available at the | | | | | | time of the study andin | | | | | | consultation with Dr. | | | | | | Mcmenomey it was elected | | | | | | to perform | | | | | | acisternogram without | | | | | | radiopharmaceutical | | | | | | administration. The | | | | | | patientwas identified, | | | | | | and informed consent was | | | | | | obtained after a | | | | | | PARQconference was | | | | | | held. The lumbar | | | | | | region was prepped and | | | | | | draped in theusual | | | | | | sterile fashion, and a | | | | | | 22-gauge needle was | | | | | | inserted | | | | | | underfluoroscopic | | | | | | guidance at L4-5 and 10 | | | | | | cc of Omnipaque-240 | | | | | | wasadministered | | | | | | intrathecally. Then | | | | | | the patient was placed | | | | | | inTrendellenberg | | | | | | position to displace the | | | | | | contrast intracranially | | | | | | bygravity. The | | | | | | patient tolerated the | | | | | | procedure well, | | | | | | withoutcomplications. | | | | | | 1.5 mm contiguous axial | | | | | | and coronal CT scans | | | | | | wereobtained of the | | | | | | skull base. | | | | | | FINDINGS: The | | | | | | subarachnoid cisterns | | | | | | was well | | | | | | contrast-opacified.There | | | | | | is a small about 2 to 3 | | | | | | mm, bony discontinuity | | | | | | of the tegmentympani on | | | | | | the right side and a | | | | | | less significant small | | | | | | anterior defectabove the | | | | | | right geniculate | | | | | | recess. There is | | | | | | fluid in the | | | | | | rightmastoid and middle | | | | | | ear, however no contrast | | | | | | extravasation was seen. | | | | | | There is a prominent | | | | | | right sigmoid sinus and | | | | | | jugular vein with | | | | | | nearlybony dehiscence | | | | | | adjacent to the right | | | | | | mastoid however this is | | | | | | unlikelyto be the source | | | | | | of CSF leakage since | | | | | | the right transverse | | | | | | sinus liesin | | | | | | juxtapostion. The left | | | | | | mastoid and middle ear, | | | | | | and the visualized | | | | | | paranasal sinuses,are | | | | | | clear. No abnormal mass | | | | | | can be identified. | | | | | | IMPRESSION: Small bone | | | | | | discontinuities at the | | | | | | right tegmen tympani, | | | | | | rightgeniculate recess | | | | | | (right transverse | | | | | | sinus/mastoid near | | | | | | bonydehiscence). Ovalle | | | | | | thu, there is no | | | | | | contrast extravasation | | | | | | seen,indicating a very | | | | | | slow CSF leak. END OF | | | | | | IMPRESSION: Addendum # 1 | | | | | | Dr. Lawrence was present | | | | | | during the entire | | | | | | procedure. 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 | | | | + + + + + + + + | Specimen | + + | | + + + +---------+ + + | Performing | Address | City/State/Zipcode | Phone Number | | Organization | | | | + +---------+ + + | [facility] | | | | | RADIOLOGY | | | | + +---------+ + + FLUORO GUIDE/LOC 4 SPINE INJ (10/12/2002 10:26 AM PST) + + + + + + | Component | Value | Ref Range | Performed | Pathologist | | | | | At | Signature | + + + + + + | FLUORO | Radiologist 1: HOWARD, | | | | | GUIDE/LOC 4 | Isamar HOPPER-Radiologist | | | | | SPINE INJ | 2: WARD LAWRENCE | | | | | | IsamarCISTERNOGRAM: | | | | | | Dictated | | | | | | 10/12/2002 CLINICAL | | | | | | INFORMATION: 37-year- | | | | | | old patient with a right | | | | | | sided mastoidCSF | | | | | | effusion. COMPARISON: | | | | | | None available. | | | | | | TECHNIQUE: [id number] | | | | | | was not available at the | | | | | | time of the study andin | | | | | | consultation with . | | | | | | Areli it was elected | | | | | | to perform | | | | | | acisternogram without | | | | | | radiopharmaceutical | | | | | | administration. The | | | | | | patientwas identified, | | | | | | and informed consent was | | | | | | obtained after a | | | | | | PARQconference was | | | | | | held. The lumbar | | | | | | region was prepped and | | | | | | draped in theusual | | | | | | sterile fashion, and a | | | | | | 22-gauge needle was | | | | | | inserted | | | | | | underfluoroscopic | | | | | | guidance at L4-5 and 10 | | | | | | cc of Omnipaque-240 | | | | | | wasadministered | | | | | | intrathecally. Then | | | | | | the patient was placed | | | | | | inTrendellenberg | | | | | | position to displace the | | | | | | contrast intracranially | | | | | | bygravity. The | | | | | | patient tolerated the | | | | | | procedure well, | | | | | | withoutcomplications. | | | | | | 1.5 mm contiguous axial | | | | | | and coronal CT scans | | | | | | wereobtained of the | | | | | | skull base. | | | | | | FINDINGS: The | | | | | | subarachnoid cisterns | | | | | | was well | | | | | | contrast-opacified.There | | | | | | is a small about 2 to 3 | | | | | | mm, bony discontinuity | | | | | | of the tegmentympani on | | | | | | the right side and a | | | | | | less significant small | | | | | | anterior defectabove the | | | | | | right geniculate | | | | | | recess. There is | | | | | | fluid in the | | | | | | rightmastoid and middle | | | | | | ear, however no contrast | | | | | | extravasation was seen. | | | | | | There is a prominent | | | | | | right sigmoid sinus and | | | | | | jugular vein with | | | | | | nearlybony dehiscence | | | | | | adjacent to the right | | | | | | mastoid however this is | | | | | | unlikelyto be the source | | | | | | of CSF leakage since | | | | | | the right transverse | | | | | | sinus liesin | | | | | | juxtapostion. The left | | | | | | mastoid and middle ear, | | | | | | and the visualized | | | | | | paranasal sinuses,are | | | | | | clear. No abnormal mass | | | | | | can be identified. | | | | | | IMPRESSION: Small bone | | | | | | discontinuities at the | | | | | | right tegmen tympani, | | | | | | rightgeniculate recess | | | | | | (right transverse | | | | | | sinus/mastoid near | | | | | | bonydehiscence). Ovalle | | | | | | thu, there is no | | | | | | contrast extravasation | | | | | | seen,indicating a very | | | | | | slow CSF leak. END OF | | | | | | IMPRESSION: Addendum # 1 | | | | | | Dr. Lawrence was present | | | | | | during the entire | | | | | | procedure. 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 | | | | + + + + + + + + | Specimen | + + | | + + + +---------+ + + | Performing | Address | City/State/Zipcode | Phone Number | | Organization | | | | + +---------+ + + | [facility] | | | | | RADIOLOGY | | | | + +---------+ + + SPINAL TAP & ASPIRATION (10/12/2002 10:26 AM PST) + + + + + + | Component | Value | Ref Range | Performed | Pathologist | | | | | At | Signature | + + + + + + | SPINAL TAP | Radiologist 1: HOWARD | | | | | & | Isamar HOPPER-Radiologist | | | | | ASPIRATION | 2: WARD LAWRENCE, | | | | | | IsamarCISTERNOGRAM: | | | | | | Dictated | | | | | | 10/12/2002 CLINICAL | | | | | | INFORMATION: 37-year- | | | | | | old patient with a right | | | | | | sided mastoidCSF | | | | | | effusion. COMPARISON: | | | | | | None available. | | | | | | TECHNIQUE: Indium-111 | | | | | | was not available at the | | | | | | time of the study andin | | | | | | consultation with . | | | | | | Areli it was elected | | | | | | to perform | | | | | | acisternogram without | | | | | | radiopharmaceutical | | | | | | administration. The | | | | | | patientwas identified, | | | | | | and informed consent was | | | | | | obtained after a | | | | | | PARQconference was | | | | | | held. The lumbar | | | | | | region was prepped and | | | | | | draped in theusual | | | | | | sterile fashion, and a | | | | | | 22-gauge needle was | | | | | | inserted | | | | | | underfluoroscopic | | | | | | guidance at L4-5 and 10 | | | | | | cc of Omnipaque-240 | | | | | | wasadministered | | | | | | intrathecally. Then | | | | | | the patient was placed | | | | | | inTrendellenberg | | | | | | position to displace the | | | | | | contrast intracranially | | | | | | bygravity. The | | | | | | patient tolerated the | | | | | | procedure well, | | | | | | withoutcomplications. | | | | | | 1.5 mm contiguous axial | | | | | | and coronal CT scans | | | | | | wereobtained of the | | | | | | skull base. | | | | | | FINDINGS: The | | | | | | subarachnoid cisterns | | | | | | was well | | | | | | contrast-opacified.There | | | | | | is a small about 2 to 3 | | | | | | mm, bony discontinuity | | | | | | of the tegmentympani on | | | | | | the right side and a | | | | | | less significant small | | | | | | anterior defectabove the | | | | | | right geniculate | | | | | | recess. There is | | | | | | fluid in the | | | | | | rightmastoid and middle | | | | | | ear, however no contrast | | | | | | extravasation was seen. | | | | | | There is a prominent | | | | | | right sigmoid sinus and | | | | | | jugular vein with | | | | | | nearlybony dehiscence | | | | | | adjacent to the right | | | | | | mastoid however this is | | | | | | unlikelyto be the source | | | | | | of CSF leakage since | | | | | | the right transverse | | | | | | sinus liesin | | | | | | juxtapostion. The left | | | | | | mastoid and middle ear, | | | | | | and the visualized | | | | | | paranasal sinuses,are | | | | | | clear. No abnormal mass | | | | | | can be identified. | | | | | | IMPRESSION: Small bone | | | | | | discontinuities at the | | | | | | right tegmen tympani, | | | | | | rightgeniculate recess | | | | | | (right transverse | | | | | | sinus/mastoid near | | | | | | bonydehiscence). Ovalle | | | | | | thu, there is no | | | | | | contrast extravasation | | | | | | seen,indicating a very | | | | | | slow CSF leak. END OF | | | | | | IMPRESSION: Addendum # 1 | | | | | | Dr. Lawrence was present | | | | | | during the entire | | | | | | procedure. 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 | | | | + + + + + + + + | Specimen | + + | | + + + +---------+ + + | Performing | Address | City/State/Zipcode | Phone Number | | Organization | | | | + +---------+ + + | [facility] | | | | | RADIOLOGY | | | | + +---------+ + + documented in this encounter Visit Diagnoses Not on filedocumented in this encounter"
--- OUTSIDE RECORDS SUMMARY | ~2019-03-23 | XMS | Encounter Summary ---
Demographics + + + | Address | [address] | | | [place] [address] | + + + | Home Phone | | + + + | Preferred Language | Unknown | + + + | Marital Status | | + + + | Pentecostalism Affiliation | CAT | + + + | Race | White | + + + | Ethnic Group | Not or | + + + Author + + + | Author | [facility] | + + + | Organization | [facility] | + + + | Address | Unknown | + + + | Phone | Unavailable | + + + Support + + +---------+ + | Name | Relationship | Address | Phone | + + +---------+ + | Gerry Moreno | ECON | Unknown | | + + +---------+ + Care Team Providers + +------+ + | Care Powerhouse Laborer Name | Role | Phone | + [...] + + + | Closed | | Elevator Repairer Apprentice | Procedures | [facility] | Ent | [...] [address] | | | | | | [place], [place] | Physician's | | | | | | [address] | Pavilion | | | | | | Phone: | [place], [place] | | | | | | [phone] | [address] | | | | | | Fax: | Phone: | | | | | | | [phone] | | | | | | | Fax: | | | | | | | [phone] | +--------+--------+ + + + + Encounter [...] at [facility] [address] | [address] [facility] [address] | HEARING LOSS | | | | [facility] | [place] [address] | (Primary Dx) | | | | Mailcode: [address] | [phone] | | | | | [facility] | | | | | | [place], [place] | | | | | | [address] | | | | | | [phone] | | | +--------+---------+ + + + [...] | + + +--------+ + + | NM COMPREHENSIVE | Procedures | Routin | Unspecified [...]
--- OUTSIDE RECORDS SUMMARY | ~2019-03-23 | XMS | Encounter Summary ---
Demographics + + + | Address | [address] | | | [place] [address] | + + + | Home Phone | | + + + | Preferred Language | Unknown | + + + | Marital Status | | + + + | Yarsani Affiliation | CAT | + + + [...] Team Providers + +------+ + | Care Service Agent Name | Role | Phone | + +------+ + PCP | Unavailable | + +------+ + Encounter Details +--------+ + + + + | Date | Type | Department | Care Team | Description | +--------+ + + + + | 11/27/ | Procedure - | | Documentation, | OP REPORT-TEACHING | | 2002 | | | Teaching Physician | | | | Transcribed | | | | +--------+ + + [...] | + +--------+ + + + | TEACHING PHYSICIAN | | 11/27/2002 | | | + +--------+ + + + documented in this encounter Visit Diagnoses Not on filedocumented in this encounter"
--- OUTSIDE RECORDS SUMMARY | ~2019-03-23 | XMS | Encounter Summary ---
Demographics + + + | Address | [address] | | | [place] [address] | + + + | Home Phone | | + + + | Preferred Language | Unknown | + + + | Marital Status | | + + + | Jehovah'S Witness Affiliation | CAT | + + + [...] Team Providers + +------+ + | Care Registration Representative Name | Role | Phone | + [...] as of this encounter Progress Notes Interface, Hotel Or Motel Receptionist In - 05/23/2005 9:03 AM PDT [id number] RIGO MENDOZA [facility] Date: 09/25/2004 Clinic: A full PAR was held. They understand and wish to proceed. Permit was signed. Jhoan Benton M.D., F.A.C.S. Building Estimator Department of Otolaryngology/ Head and Neck Surgery and Department of Neurosurgery [facility] [id number] / [id number] / [phone] / [phone] documented i n this encounter Plan of Treatment Not on filedocumented as of this encounter Visit Diagnoses Not on filedocumented in this encounter"
--- OUTSIDE RECORDS SUMMARY | ~2019-03-23 | XMS | Encounter Summary ---
Demographics + + + | Address | [address] | | | [place] [address] | + + + | Home Phone | | + + + | Preferred Language | Unknown | + + + | Marital Status | | + + + | Quaker Affiliation | CAT | + + + | Race | White | + + + | Ethnic Group | Not or | + + + Author + + + | Author | [facility] | + + + | Organization | [facility] | + + + | Address | Unknown | + + + | Phone | Unavailable | + + + Support + + +---------+ + | Name | Relationship | Address | Phone | + + +---------+ + | Gerry Moreno | ECON | Unknown | | + + +---------+ + Care Team Providers + +------+ + | Care Sonar Technician Name | Role | Phone | + +------+ + | Samy Donadl DO | PCP | Unavailable | + +------+ + Reason for Visit + + + | Reason | Comments | + + + | Tinnitus | here to re-establish care of tinnitus | + + + Consultation (Routine) +--------+--------+ + + + + | Status | Reason | Specialty | Diagnoses / | Referred By | Referred To | | | | | Procedures | Contact | Contact | +--------+--------+ + + + + | Closed | | Otolaryngolog | | [facility] | Ent Otology | | | | y | | Epic Dept | [facility] [address] | | | | | | [address] | | | | | | | [facility] | | | | | | | Mailcode: | | | | | | | [address] | | | | | | | Physician's | | | | | | | Pavilion | | | | | | | [place], [place] | | | | | | | [address] | | | | | | | Phone: | | | | | | | [phone] | | | | | | | Fax: | | | | | | | [phone] | +--------+--------+ + + + + Encounter Details +--------+---------+ + + + | Date | Type | Department | Care Team | Description | +--------+---------+ + + + | 01/06/ | Office | Otolaryngology | Jhoan Benton, | Cerebrospinal fluid | | 2009 | Visit | Otology Services at | [facility] | rhinorrhea (Primary | | | | [facility] [address] | [facility] | Dx) | | | | [facility] | [address] [facility] | | | | | Mailcode: PV01 | [address] [place], [place] | | | | | [address] | [address] | | | | | [place], [place] | (Fax) | | | | | [address] | | | | | | [phone] | | | +--------+---------+ + + + [...] documented as of this encounter Progress Notes Jhoan Benton MD - 02/02/2010 7:12 AM PDTI saw the pt. I performed an independent histo ry and physical examination. I discussed the case with the resident who documented my findin gs and plan. The high power operating microscope was used to examine both ears. No evidence of csf leak orrQiana mack MD - 01/06/2010 5:29 PM PDTFormatting of this note might be different fr om the original. Clinic Date: 01/06/2010 Clinic: Otology Clinic Primary Care Provider: Samy DONALD History of Present Illness: Nu is a 44 y.o. who returns for follow-up. 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 The right was repaired 11/2002 and the left 09/2004. She had no postop complications. She returns today because of increased h eadaches after anxiolytic medication changes. She has a history of anxiety and panic attacks for which she takes alprazolam and citalopram. When her PCP changed these medications she s tarted having left sided headaches, which she describes as located in her temples, feels lik e a tight band, and worsens with stress. She denies otorrhea, rhinorrhea, vertigo, dysequili brium, hearing loss, tinnitus. Current outpatient prescriptions Medication alprazolam 0.5 mg Oral Tablet alprazolam 1 mg Oral Tablet citalopram 40 mg Oral Tablet levothyroxine 112 mcg Oral Tablet Allergies Allergen Reactions Sulfa (Sulfonamide Antibiotics) No past surgical history on file. PHYSICAL EXAM: There were no vitals taken for this visit. Alert, NAD Respirations even, unlabored. Head: Atraumatic, symmetric Neuro: grossly normal gait and coordination, no evidence of dysmetria. CN: Face symmetric all branches VII intact, HB1 bilaterally. CN 2-12 intact, EOMI, no nys tagmus. Nose: normal external anatomy. Anterior nares clear, mucosa moist, no drainage from nose. Mouth/throat: oropharynx clear, normal palate elevation, tongue midline. Neck: no LAD or masses, no thyromegaly. Ears: Robertson: goes to center Rinne: air > bone bilaterally Left ear: EACs clear, TM intact, normal landmarks, no e/o drainage or effusion Right ear: EACs clear, TM intact normal landmarks, no e/o drainage or effusion Diagnostic Data: MRI from outside reviewed and report discussed with patient. Final impression states taht there wasn an interval appearance of an area of encephalomalacia and adjacent gliosis in the left anterior temporal lobe. These findings are consistent with post-operative changes. The re is no evidence of fluid accumulation or herniation through the tegmen. Essentially normal post-operative MRI. Assessment: 44 year old female 6 and 7 years status post repair of bilateral CSF leaks and temporal encephaloceles, now with headaches. No concern of repeat CSF leak or encephalocele on exam or MRI. We do not feel that her headaches are related to her previous surgery or re currence. Plan: RTC as needed if further concerns or issues arise. Plan: documented in this enc ounter Plan of Treatment Not on filedocumented as of this encounter Procedures + +--------+ + + + | Procedure Name | Priori | Date/Time | Associated Diagnosis | Comments | | | ty | | | | + +--------+ + + + | RADIOLOGY | | 05/11/2011 | | Results for this | | | | 12:00 AM | | procedure are in the | | | | PDT | | results section. | + +--------+ + + + | RADIOLOGY | | 01/06/2010 | | Results for this | | | | 12:00 AM | | procedure are in the | | | | PDT | | results section. | + +--------+ + + + | RADIOLOGY | | 01/06/2010 | | Results for this | | | | 12:00 AM | | procedure are in the | | | | PDT | | results section. | + +--------+ + + + | RADIOLOGY | | 11/11/2009 | | Results for this | | | | 12:00 AM | | procedure are in the | | | | PST | | results section. | + +--------+ + + + documented in this encounter Results RADIOLOGY (05/11/2011 12:00 AM PDT) + + + | Narrative | Performed At | + + + | | | + + + + + | Transcriptions | + + | Orin Mrorissey - 08/09/2011 3:55 PM PDT | + + RADIOLOGY (01/06/2010 12:00 AM PDT) + + + | Narrative | Performed At | + + + | | | + + + + + | Procedure Note | + + | Orin Morrissey - 01/06/2010 12:00 AM PDT | | | + + RADIOLOGY (01/06/2010 12:00 AM PDT) + + + | Narrative | Performed At | + + + | | | + + + + + | Procedure Note | + + | Orin Morrissey - 01/06/2010 12:00 AM PDT | | | + + RADIOLOGY (11/11/2009 12:00 AM PST) + + + | Narrative | Performed At | + + + | | | + + + + + | Procedure Note | + + | Orin Morrissey - 11/11/2009 12:00 AM PST | | | + + documented in this encounter Visit Diagnoses + + | Diagnosis | + + | Cerebrospinal fluid rhinorrhea - Primary | + + documented in this encounter"
--- OUTSIDE RECORDS SUMMARY | ~2019-03-23 | XMS | Encounter Summary ---
Demographics + + + | Address | [address] | | | [place] [address] | + + + | Home Phone | | + + + | Preferred Language | Unknown | + + + | Marital Status | | + + + | Adventism Affiliation | CAT | + + + [...] Team Providers + +------+ + | Care Cytopathologist Name | Role | Phone | + [...]
--- OUTSIDE RECORDS SUMMARY | ~2019-03-23 | XMS | Encounter Summary ---
Demographics + + + | Address | [address] | | | [place] [address] | + + + | Home Phone | | + + + | Preferred Language | Unknown | + + + | Marital Status | | + + + | Adventist Affiliation | CAT | + + + [...] Team Providers + +------+ + | Care Statistician Name | Role | Phone | + +------+ + PCP | Unavailable | + +------+ + Encounter Details +--------+ + + + + | Date | Type | Department | Care Team | Description | +--------+ + + + + | 10/27/ | Office | | Note, Outpatient | [...] as of this encounter Progress Notes Interface, Coupon Collection Clerk In - 05/23/2005 12:40 AM PDT [id number] RIGO MENDOZA [facility] Date: 10/27/2004 Clinic: Otology - Neurotology - Skull Base Nu Moreno returns status post middle fossa repair of encephalocele, doing extremely well. No fluid from the nose, the ear, or the wound. Overall, feeling well. On the exam under the operating microscope, there is no fluid in either middle ear. Drums are intact. Her facial nerve is normal. Incision is well healed. Doing well. Follow up in 6 weeks, p.r.n. any problems. Jhoan Benton M.D., F.A.C.S. Salt Machine Operator Department of Otolaryngology/ Head and Neck Surgery and Department of Neurosurgery [facility] [place] / [id number] / [id number] / [id number] / [id number] cc: Omar Pratt M.D. [facility] Neurosurgery Konstantin Coburn M.D. [place] [address] documented i n this encounter Plan of Treatment Not on filedocumented as of this encounter Visit Diagnoses Not on filedocumented in this encounter"
--- OUTSIDE RECORDS SUMMARY | ~2019-03-23 | XMS | Encounter Summary ---
Demographics + + + | Address | [address] | | | [place] [address] | + + + | Home Phone | | + + + | Preferred Language | Unknown | + + + | Marital Status | | + + + | Tenriism Affiliation | CAT | + + + | Race | White | + + + | Ethnic Group | Not or | + + + Author + + + | Author | [facility] | + + + | Organization | [facility] | + + + | Address | Unknown | + + + | Phone | Unavailable | + + + Support + + +---------+ + | Name | Relationship | Address | Phone | + + +---------+ + | Gerry Moreno | ECON | Unknown | | + + +---------+ + Care Team Providers + +------+ + | Care Acute Care Physician Name | Role | Phone | + +------+ + PCP | Unavailable | + +------+ + Reason for Visit + + + | Reason | Comments | + + + | Lab Results | Had MRI done in [facility], has report, office also sending disc | | | and report. Set up f/u appt, but would also like someone to call | | | and explain the report to her, wondering if f/u appt is | | | necessary. | + + + Encounter Details +--------+ + + + + | Date | Type | Department | Care Team | Description | +--------+ + + + + | 12/26/ | Telephone | Otolaryngology | Jhoan Benton, | Lab Results (Had MRI | | 2009 | | Otology Services at | [facility] | done in [facility], | | | | [facility] [address] | [facility]ology [facility]oc | has report, office | | | | [facility] | [address] [place] [address] [address] | also sending disc | | | | Mailcode: PV01 | [address] [place], [place] | and report. Set up | | | | [facility] | [phone] | f/u appt, but would | | | | [place], [place] | (Fax) | also like someone to | | | | [phone] | | call and explain | | | | [phone] | | the report to her, | | | | | | wondering if f/u | | | | | | appt is necessary.) | +--------+ + + + + Social [...]
--- OUTSIDE RECORDS SUMMARY | ~2019-03-23 | XMS | Encounter Summary ---
Demographics + + + | Address | [address] | | | [place] [address] | + + + | Home Phone | | + + + | Preferred Language | Unknown | + + + | Marital Status | | + + + | Congregational Affiliation | CAT | + + + [...] Team Providers + +------+ + | Care Aquatic Performer Name | Role | Phone | + [...] as of this encounter Progress Notes Interface, Bird Trapper In - 05/23/2005 6:26 AM PDT [id number] RIGO MENDOZA [facility] Date: 04/13/2005 Clinic: Otology Neurotology Clinic Subjective: [...] Mike Ken M.D. Jhoan Benton M.D., F.A.C.S. Fly Maker Department of Otolaryngology/ Head and Neck Surgery and Department of Neurosurgery / HS [id number] / [id number] / [id number] / [id number] documented i n this encounter Plan of Treatment Not on filedocumented as of this encounter Visit Diagnoses Not on filedocumented in this encounter"
--- OUTSIDE RECORDS SUMMARY | ~2019-03-23 | XMS | Encounter Summary ---
Demographics + + + | Address | [address] | | | [place] [address] | + + + | Home Phone | | + + + | Preferred Language | Unknown | + + + | Marital Status | | + + + | Sikh Affiliation | CAT | + + + [...] Team Providers + +------+ + | Care Health Policy Manager Name | Role | Phone | + +------+ + PCP | Unavailable | + +------+ + Encounter Details +--------+ + + + + | Date | Type | Department | Care Team | Description | +--------+ + + + + | 09/25/ | Results | Otolaryngology | Jhoan Benton, | | | 2003 | Only | Otology Services at | [facility] | | | | | [facility] [address] | [facility]oc | | | | | [facility] | [address] [place] [address] | | | | | Mailcode: [address] | [address] [place], [place] | | | | | [facility]ician[facility] | [address] | | | | | [place], [place] | | | | | | [address] | | | | | | [phone] | | | +--------+ + + + [...] + +--------+ + + + | X-RAY CHEST 2 VIEW | Routin | 09/25/2004 | | Results for this | | | e | 2:39 PM | | procedure are in the | | | | PST | | results section. | + +--------+ + + + | BASIC METABOLIC SET | Routin | 09/25/2004 | | Results for this | | (NA, K, CL, TCO2, | e | 2:20 PM | | procedure are in the | | BUN, CR, GLU, CA) | | PST | | results section. | + +--------+ + + + | CBC ONLY | Routin | 09/25/2004 | | Results for this | | | e | 2:20 PM | | procedure are in the | | | | PST | | results section. | + +--------+ + + + | PHOSPHORUS, PLASMA | Routin | 09/25/2004 | | Results for this | | | e | 2:20 PM | | procedure are in the | | | | PST | | results section. | + +--------+ + + + | MAGNESIUM, PLASMA | Routin | 09/25/2004 | | Results for this | | | e | 2:20 PM | | procedure are in the | | | | PST | | results section. | + +--------+ + + + documented in this encounter Results CHEST 2 VIEW (09/25/2004 2:39 PM PST) + + + + + + | Component | Value | Ref Range | Performed | Pathologist | | | | | At | Signature | + + + + + + | CHEST, 2 | Radiologist 1: ANURAG | | | | | [facility] | [facility]att | | | | | STEREO | M.D.-Radiologist 2: | | | | | | BETO TENORIO: PA | | | | | | and lateral chest. | | | | | | COMPARISON: None. | | | | | | FINDINGS: The cardiac | | | | | | and mediastinal contours | | | | | | are normal. The | | | | | | lungs areclear. There | | | | | | is no pleural effusion | | | | | | or pneumothorax. | | | | | | Osseousstructures are | | | | | | unremarkable. | | | | | | IMPRESSION: 1. Negative | | | | | | exam. | | | | + + + + + + + + | Specimen | + + | | + + + +---------+ + + | Performing | Address | City/State/Zipcode | Phone Number | | Organization | | | | + +---------+ + + | [facility] DEPARTMENT OF | | | | | RADIOLOGY | | | | + +---------+ + + CBC ONLY WITH PLATELET (09/25/2004 2:20 PM PST) + +-------+ + + + | Component | Value | Ref Range | Performed | Pathologist | | | | | At | Signature | + +-------+ + + + | WHITE CELL | 7.9 | 4.4 - 11.0 K/cu | [facility] | | | COUNT | | mm | DEPARTMENT | | | | | | OF | | | | | | PATHOLOGY | | + +-------+ + + + | RED CELL | 4.08 | 3.65 - 5.10 | [facility] | | | COUNT | | M/cu mm | DEPARTMENT | | | | | | OF | | | | | | PATHOLOGY | | + +-------+ + + + | HEMOGLOBIN | 13.0 | 11.4 - 15.0 | [facility] | | | | | g/dL | DEPARTMENT | | | | | | OF | | | | | | PATHOLOGY | | + +-------+ + + + | HEMATOCRIT | 37.8 | 33.0 - 44.6 % | [facility] | | | | | | DEPARTMENT | | | | | | OF | | | | | | PATHOLOGY | | + +-------+ + + + | MCV | 92.7 | 80.0 - 96.0 fL | [facility] | | | | | | DEPARTMENT | | | | | | OF | | | | | | PATHOLOGY | | + +-------+ + + + | MCH | 31.8 | 29.0 - 32.0 pg | [facility] | | | | | | DEPARTMENT | | | | | | OF | | | | | | PATHOLOGY | | + +-------+ + + + | MCHC | 34.3 | 33.4 - 35.5 | [facility] | | | | | g/dL | DEPARTMENT | | | | | | OF | | | | | | PATHOLOGY | | + +-------+ + + + | RDW | 12.7 | 11.5 - 15.0 % | [facility] | | | | | | DEPARTMENT | | | | | | OF | | | | | | PATHOLOGY | | + +-------+ + + + | PLATELET | 223 | 150 - 400 K/cu | [facility] | | | COUNT | | mm | DEPARTMENT | | | | | | OF | | | | | | PATHOLOGY | | + +-------+ + + + | MPV | 9.4 | 7.4 - 10.4 fL | [facility] | | | | | [...] DEPARTMENT OF | [address] | [place], [place] [address] | | | PATHOLOGY | [address] | | | + + + + + | [facility] DEPARTMENT OF | [address] | [place] [address] | | | PATHOLOGY | [address] | | | + + + + + BASIC METABOLIC SET (09/25/2004 2:20 PM PST) + +-------+ + + + | Component | Value | Ref Range | Performed | Pathologist | | | | | At | Signature | + +-------+ + + + | GLUCOSE, | 91 | 65 - 110 mg/dL | [facility] | | | PLASMA | | | DEPARTMENT | | | (LAB) | | | OF | | | | | | PATHOLOGY | | + +-------+ + + + | BUN, PLASMA | 12 | 6 - 20 mg/dL | [facility] | | | (LAB) | | | DEPARTMENT | | | | | | OF | | | | | | PATHOLOGY | | + +-------+ + + + | CREATININE | 0.6 | 0.6 - 1.1 mg/dL | [facility] | | | PLASMA | | | DEPARTMENT | | | (LAB) | | | OF | | | | | | PATHOLOGY | | + +-------+ + + + | SODIUM, | 139 | 136 - 145 | [facility] | [...] +-------+ + + + | CHLORIDE, | 105 | 98 - 107 mmol/L | [facility] | | | PLASMA | | | DEPARTMENT | | | (LAB) | | | OF | | | | | | PATHOLOGY | | + +-------+ + + + | TOTAL CO2, | 26 | 23 - 29 mmol/L | [facility] | | | PLASMA | | | DEPARTMENT | | | (LAB) | | | OF | | | | | | PATHOLOGY | | + +-------+ + + + | CALCIUM, | 9.0 | 8.5 - 10.5 | [facility] | [...] DEPARTMENT OF | [address] | [place] [address] | | | PATHOLOGY | [address] | | | + + + + + | [facility] DEPARTMENT | [address] | [place] [address] | | | PATHOLOGY | [address] | | | + + + + + MAGNESIUM, PLASMA (09/25/2004 2:20 PM PST) + +-------+ + + + | Component | Value | Ref Range | Performed | Pathologist | | | | | At | Signature | + +-------+ + + + | MAGNESIUM,P | 2.0 | 1.8 - 2.5 mg/dL | [facility] | | | LASMA | | | DEPARTMENT | | | | | | OF | | | | | | PATHOLOGY | | + +-------+ + + + + + | Specimen | + + | | + + + + + + + | Performing | Address | City/State/Zipcode | Phone Number | | Organization | | | | + + + + + | [facility] DEPARTMENT OF | [address] | [place] [address] | | | PATHOLOGY | [address] | | | + + + + + | [facility] OF | [address] | [place] [address] | | | PATHOLOGY | [address] | | | + + + + + PHOSPHORUS, PLASMA (09/25/2004 2:20 PM PST) + +-------+ + + + | Component | Value | Ref Range | Performed | Pathologist | | | | | At | Signature | + +-------+ + + + | PHOSPHORUS, | 3.5 | 2.4 - 4.7 mg/dL | [facility] | | | PLASMA [...] DEPARTMENT OF | [address] | [place] [address] | | | PATHOLOGY | [address] | | | + + + + + | [facility] | [address] | [place] [address] | | | PATHOLOGY | [address] | | | + + + + + documented in this encounter Visit Diagnoses Not on filedocumented in this encounter"
--- OUTSIDE RECORDS SUMMARY | ~2019-03-23 | XMS | Encounter Summary ---
Demographics + + + | Address | [address] | | | [place] [address] | + + + | Home Phone [...] Team Providers + +------+ + | Care Coal Crusher Operator Name | Role | Phone | + +------+ + PCP | Unavailable | + +------+ + Encounter Details +--------+ + + + + | Date | Type | Department | Care Team | Description | +--------+ + + + + | 10/14/ | Results | | Allen Michelle | | | 2004 | Only | | | | +--------+ + + [...] | BASIC METABOLIC SET | Urgent | 10/14/2004 | | Results for this | | (NA, K, CL, TCO2, | | 4:05 AM | | procedure are in the | | BUN, CR, GLU, CA) | | PST | | results section. | + +--------+ + + + | CBC ONLY | Urgent | 10/14/2004 | | Results for this | | | | 4:05 AM | | procedure are in the | | | | PST | | results section. | + +--------+ + + + | PHOSPHORUS, PLASMA | Urgent | 10/14/2004 | | Results for this | | | | 4:05 AM | | procedure are in the | | | | PST | | results section. | + +--------+ + + + | MAGNESIUM, PLASMA | Urgent | 10/14/2004 | | Results for this | | | | 4:05 AM | | procedure are in the | | | | PST | | results section. | + +--------+ + + + documented in this encounter Results CBC ONLY WITH PLATELET (10/14/2004 4:05 AM PST) + +---------+ + + + | Component | Value | Ref Range | Performed | Pathologist | | | | | At | Signature | + +---------+ + + + | WHITE CELL | Clotted | 4.4 - 11.0 K/cu | [facility] | | | COUNT | | mm | DEPARTMENT | | | | | | OF | | | | | | PATHOLOGY | | + +---------+ + + + | RED CELL | Clotted | 3.65 - 5.10 | [facility] | | | COUNT | | M/cu mm | DEPARTMENT | | | | | | OF | | | | | | PATHOLOGY | | + +---------+ + + + | HEMOGLOBIN | Clotted | 11.4 - 15.0 | [facility] | | | | | g/dL | DEPARTMENT | | | | | | OF | | | | | | PATHOLOGY | | + +---------+ + + + | HEMATOCRIT | Clotted | 33.0 - 44.6 % | [facility] | | | | | | DEPARTMENT | | | | | | OF | | | | | | PATHOLOGY | | + +---------+ + + + | MCV | Clotted | 80.0 - 96.0 fL | [facility] | | | | | | DEPARTMENT | | | | | | OF | | | | | | PATHOLOGY | | + +---------+ + + + | MCH | Clotted | 29.0 - 32.0 pg | [facility] | | | | | | DEPARTMENT | | | | | | OF | | | | | | PATHOLOGY | | + +---------+ + + + | MCHC | Clotted | 33.4 - 35.5 | [facility] | | | | | g/dL | DEPARTMENT | | | | | | OF | | | | | | PATHOLOGY | | + +---------+ + + + | RDW | Clotted | 11.5 - 15.0 % | [facility] | | | | | | DEPARTMENT | | | | | | OF | | | | | | PATHOLOGY | | + +---------+ + + + | PLATELET | Clotted | 150 - 400 K/cu | [facility] | | | COUNT | | mm | DEPARTMENT | | | | | | OF | | | | | | PATHOLOGY | | + +---------+ + + + | MPV | Clotted | 7.4 - 10.4 fL | [facility] | | | | | | DEPARTMENT | | | | | | OF | | | | | | PATHOLOGY | | + +---------+ + + + + + | Specimen | + + | | + + + + + | Narrative | Performed At | + + + | Clotted, please resubmit. Phoned | [facility] | | | DEPARTMENT OF | | | PATHOLOGY | + + + + + + + + | Performing | Address | City/State/Zipcode | Phone Number | | Organization | | | | + + + + + | [facility] DEPARTMENT OF | [address] | [place] [address] | | | PATHOLOGY | [address] | | | + + + + + | [facility] DEPARTMENT OF | [address] | [place] [address] | | | PATHOLOGY | [address] | | | + + + + + BASIC METABOLIC SET (10/14/2004 4:05 AM PST) + +---------+ + + + | Component | Value | Ref Range | Performed | Pathologist | | | | | At | Signature | + +---------+ + + + | GLUCOSE, | 123 (H) | 65 - 110 mg/dL | [facility] | | | PLASMA | | | DEPARTMENT | | | (LAB) | | | OF | | | | | | PATHOLOGY | | + +---------+ + + + | BUN, PLASMA | 9 | 6 - 20 mg/dL | [facility] | | | (LAB) | | | DEPARTMENT | | | | | | OF | | | | | | PATHOLOGY | | + +---------+ + + + | CREATININE | 0.7 [...] +---------+ + + + | POTASSIUM, | 4.3 | 3.5 - 5.1 | [facility] | | | PLASMA | | mmol/L | DEPARTMENT | | | (LAB) | | | OF | | | | | | PATHOLOGY | | + +---------+ + + + | CHLORIDE, | 99 | 98 - 107 mmol/L | [facility] [...] +---------+ + + + | CALCIUM, | 8.4 (L) | 8.5 - 10.5 | [facility] [...] | + + + + + | [facility] DEPARTMENT OF | [address] | [place] [address] | | | PATHOLOGY | [address] | | | + + + + + | [facility] DEPARTMENT OF | [address] | [place] [address] | | | PATHOLOGY | [address] | | | + + + + + MAGNESIUM, PLASMA (10/14/2004 4:05 AM PST) + +-------+ + + + | Component | Value | Ref Range | Performed | Pathologist | | | | | At | Signature | + +-------+ + + + | MAGNESIUM,P | 2.3 | 1.8 - 2.5 mg/dL | [facility] | | | LASMA | | | [...] | + + + + + | [facility] DEPARTMENT OF | [facility] | [place] [address] | | | PATHOLOGY | [address] | | | + + + + + | [facility] DEPARTMENT OF | [address] | [place] [address] | | | PATHOLOGY | [address] | | | + + + + + PHOSPHORUS, PLASMA (10/14/2004 4:05 AM PST) + +-------+ + + + | Component | Value | Ref Range | Performed | Pathologist | | | | | At | Signature | + +-------+ + + + | PHOSPHORUS, | 2.4 | 2.4 - 4.7 mg/dL | [facility] [...] | + + + + + | [facility] | [address] | [place] [address] | | | PATHOLOGY | [address] | | | + + + + + | [facility] DEPARTMENT OF | [address] | [place] [address] | | | PATHOLOGY | [address] | | | + + + + + documented in this encounter Visit Diagnoses Not on filedocumented in this encounter"
--- OUTSIDE RECORDS SUMMARY | ~2019-03-23 | XMS | Encounter Summary ---
Demographics + + + | Address | [address] | | | [place] [address] | + + + | Home Phone | | + + + | Preferred Language | Unknown | + + + | Marital Status | | + + + | Shinto Affiliation | CAT | + + + | Race | White | + + + | Ethnic Group | Not or | + + + Author + + + | Author | [facility] | + + + | Organization | [facility] | + + + | Address | Unknown | + + + | Phone | Unavailable | + + + Support + + +---------+ + | Name | Relationship | Address | Phone | + + +---------+ + | Gerry Moreno | ECON | Unknown | | + + +---------+ + Care Team Providers + +------+ + | Care Paratransit Operator Name | Role | Phone | + +------+ + | Samy Carlos DO | PCP | Unavailable | + +------+ + Reason for Visit +--------+ + | Reason | Comments | +--------+ + | Other | 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
--- OUTSIDE RECORDS SUMMARY | ~2019-03-23 | XMS | Encounter Summary ---
Demographics + + + | Address | [address] | | | [place] [address] | + + + | Home Phone | | + + + | Preferred Language | Unknown | + + + | Marital Status | | + + + | Mormonism Affiliation | CAT | + + + | Race | White | + + + | Ethnic Group | Not or | + + + Author + + + | Author | [facility] | + + + | Organization | [facility] | + + + | Address | Unknown | + + + | Phone | Unavailable | + + + Support + + +---------+ + | Name | Relationship | Address | Phone | + + +---------+ + | Gerry Moreno | ECON | Unknown | | + + +---------+ + Care Team Providers + +------+ + | Care Foster Care Case Manager Name | Role | Phone | + +------+ + PCP | Unavailable | + +------+ + Encounter Details +--------+ + + + + | Date | Type | Department | Care Team | Description | +--------+ + + + + | 10/13/ | Documentati | Anesthesiology | Unknown . | | | 2003 | on | [address] | | | | | | [facility] | | | | | | [place], [place] | | | | | | [address] | | | +--------+ + + + [...] | + +--------+ + + + | ANESTHESIA/SEDATION | | 10/13/2004 | | Results for this | | | | 10:48 AM | | procedure are in the | | | | PST | | results section. | + +--------+ + + + documented in this encounter Results ANESTHESIA/SEDATION (10/13/2004 10:48 AM PST) + + + | Narrative | Performed At | + + + | Ordered by an unspecified provider. | | + + + + + | Transcriptions | + + | 10/13/2004 10:48 AM [facility] Anesthesia PostOp Report | | | | Patient: NU MORENO [facility] Rec: [id number] Sex F Bdate: 1965 | | Date/Time Data | | Entered Into [facility] | | Anesth PostOp | | Surgery Date [id number] 10/13/04 10:48 | | [id number] 11/27/02 11:06 | | Anesthesiologist Ayaka JORGE 10/13/04 10:48 | | HEATHER MERAZ 11/27/02 11:06 | | Resident Anesthesiolog LUANNE FUENTES 10/13/04 10:48 | | GEE LIVINGSTON 11/27/02 11:06 | | | + + documented in this encounter Visit Diagnoses Not on filedocumented in this encounter"
--- OUTSIDE RECORDS SUMMARY | ~2019-03-23 | XMS | Encounter Summary ---
Demographics + + + | Address | [address] | | | [place] [address] | + + + | Home Phone | | + + + | Preferred Language | Unknown | + + + | Marital Status | | + + + | Caodaism Affiliation | CAT | + + + | Race | White | + + + | Ethnic Group | Not or | + + + Author + + + | Author | [facility] | + + + | Organization | [facility] | + + + | Address | Unknown | + + + | Phone | Unavailable | + + + Support + + +---------+ + | Name | Relationship | Address | Phone | + + +---------+ + | Gerry Moreno | ECON | Unknown | | + + +---------+ + Care Team Providers + +------+ + | Care Repairer General Name | Role | Phone | + [...] [facility] | | | | | [facility] | [address] [place] [address] | | | | | Mailcode: PV01 | [address] [place], [place] | | | | | Physician's Pedro | [address] | | | | | [place], [place] | | | | | | [address] | | | | | | [phone] | | | +--------+ + + + [...] | [address] | [place], [place] [address] | | | PATHOLOGY | [address] | | | + + + + + | [facility] DEPARTMENT OF | [address] | [place] [address] | | | PATHOLOGY | [address] [...] DEPARTMENT OF | [address] | [place] [address] | | | PATHOLOGY | [address] | | | + + + + + | [facility] DEPARTMENT | [address] | [place] [address] | | | PATHOLOGY | [address] | | | + + + + + MAGNESIUM, PLASMA (09/25/2004 2:20 PM PST) + +-------+ + + + | Component | Value | Ref Range | Performed | Pathologist | | | | | At | Signature | + +-------+ + + + | MAGNESIUM,P | 2.0 | 1.8 - 2.5 mg/dL | [facility] | | | LASMA | | | [...] | + + + + + | [facility] DEPARTMENT OF | [address] | [place] [address] | | | PATHOLOGY | [address] | | | + + + + + | [facility] | [address] | [place] [address] | | | PATHOLOGY | [address] [...] DEPARTMENT OF | [address] | [place] [address] | | | PATHOLOGY | [address] | | | + + + + + | [facility] | [address] | [place] [address] | | | PATHOLOGY | [address] | | | + + + + + documented in this encounter Visit Diagnoses Not on filedocumented in this encounter"
--- OUTSIDE RECORDS SUMMARY | ~2019-03-23 | XMS | Encounter Summary ---
Demographics + + + | Address | [address] | | | [place] [address] | + + + | Home Phone | | + + + | Preferred Language | Unknown | + + + | Marital Status | | + + + | Sikh Affiliation | CAT | + + + | Race | White | + + + | Ethnic Group | Not or | + + + Author + + + | Author | [facility] | + + + | Organization | [facility] | + + + | Address | Unknown | + + + | Phone | Unavailable | + + + Support + + +---------+ + | Name | Relationship | Address | Phone | + + +---------+ + | Gerry Moreno | ECON | Unknown | | + + +---------+ + Care Team Providers + +------+ + | Care Mercury Washer Name | Role | Phone | + [...] Ot[facility]ology [facility]oc | | | | | [facility] | [address] [place] [address] | | | | | Mailcode: PV01 | [address] [place], [place] | | | | | Physician's Pedro | [address] | | | | | [place], [place] | | | | | | [address] | | | | | | [phone] | | | +--------+ + + + [...] | + + + + + | [facility] DEPARTMENT OF | [address] [facility] | [place] [address] | | | PATHOLOGY | [address] | | | + + + + + | [facility] DEPARTMENT OF | [facility] | [place] [address] | | | PATHOLOGY | [address] [...] | + + + + + | [facility] DEPARTMENT OF | [address] | [place] [address] | | | PATHOLOGY | [address] | | | + + + + + | [facility] DEPARTMENT OF | [address] | [place] [address] | | | PATHOLOGY | [address] [...] DEPARTMENT OF | [address] | [place] [address] | | | PATHOLOGY | [address] | | | + + + + + | [facility] DEPARTMENT OF | [address] | [place] [address] | | | PATHOLOGY | [address] [...] | + + + + + | [facility] DEPARTMENT OF | [address] | [place] [address] | | | PATHOLOGY | [address] | | | + + + + + | [facility] DEPARTMENT OF | [address] | [place] [address] | | | PATHOLOGY | [address] [...] | | + +---------+ + + | [facility] DEPARTMENT OF | | | | | [...] [facility] | | | | | | IasmarCISTERNOGRAM: | | | | | | Dictated [...] | | + +---------+ + + | [facility] DEPARTMENT | | | | | RADIOLOGY [...]
--- OUTSIDE RECORDS SUMMARY | ~2019-03-23 | XMS | Encounter Summary ---
Demographics + + + | Address | [address] | | | [place] [address] | + + + | Home Phone | | + + + | Preferred Language | Unknown | + + + | Marital Status | | + + + | Worship Affiliation | CAT | + + + | Race | White | + + + | Ethnic Group | Not or | + + + Author + + + | Author | [facility] | + + + | Organization | [facility] | + + + | Address | Unknown | + + + | Phone | Unavailable | + + + Support + + +---------+ + | Name | Relationship | Address | Phone | + + +---------+ + | Gerry Moreno | ECON | Unknown | | + + +---------+ + Care Team Providers + +------+ + | Care Automatic Cigar Wrapper Tender Name | Role | Phone | + [...] Description | +--------+--------+ + + + | 03/14/ | Refill | Otolaryngology | Phoenix Garza, | Refill Request | | 2016 | | Otology Services at | MD [address] | | | | | [facility] [address] | [facility] | | | | | [facility] | [place], [place] | | | | | Mailcode: PV01 | [address] | | | | | PhysicianMoriahs Pedro | [phone] | | | | | [place], [place] | | | | | | [address] | | | | | | [phone] | | | +--------+--------+ + + + [...]
--- OUTSIDE RECORDS SUMMARY | ~2019-03-23 | XMS | Encounter Summary ---
Demographics + + + | Address | [address] | | | [place] [address] | + + + | Home Phone | | + + + | Preferred Language | Unknown | + + + | Marital Status | | + + + | Lutheran Affiliation | CAT | + + + [...] Team Providers + +------+ + | Care Solar Business Developer Name | Role | Phone | + [...] as of this encounter Progress Notes Interface, Manager Insurance In - 05/23/2005 12:40 AM PDT [id number] RIGO MENDOZA [facility] Date: 10/27/2004 Clinic: Otology - [...] p.r.n. any problems. Jhoan Benton M.D., F.A.C.S. [employer] Department of Otolaryngology/ Head and Neck Surgery and Department of Neurosurgery [facility] / [id number] / [id number] / [id number] / [id number] cc: Omar Pratt M.D. [facility] Neurosurgery Konstantin Coburn M.D. [place] [address] documented i n this encounter Plan of Treatment Not on filedocumented as of this encounter Visit Diagnoses Not on filedocumented in this encounter"
--- OUTSIDE RECORDS SUMMARY | ~2019-03-23 | XMS | Encounter Summary ---
Demographics + + + | Address | [address] | | | [place] [address] | + + + | Home Phone | | + + + | Preferred Language | Unknown | + + + | Marital Status | | + + + | Islam Affiliation | CAT | + + + | Race | White | + + + | Ethnic Group | Not or | + + + Author + + + | Author | [facility] | + + + | Organization | [facility] | + + + | Address | Unknown | + + + | Phone | Unavailable | + + + Support + + +---------+ + | Name | Relationship | Address | Phone | + + +---------+ + | Gerry Moreno | ECON | Unknown | | + + +---------+ + Care Team Providers + +------+ + | Care It Associate Name | Role | Phone | + +------+ + PCP | Unavailable | + +------+ + Encounter Details +--------+ + + + + | Date | Type | Department | Care Team | Description | +--------+ + + + + | 11/02/ | Telephone | Otolaryngology | Jhoan Benton, | | | 2005 | | Otology Services at | MD [facility]VALO | | | | | [facility] [address] | [facility]oc | | | | | [facility] | [address] [place] [address] | | | | | Mailcode: PV01 | [address] [place], [place] | | | | | Physician's [place] | [address] | | | | | [place], [place] | | | | | | [address] | | | | | | [phone] | | | +--------+ + + + [...]
--- OUTSIDE RECORDS SUMMARY | ~2019-03-23 | XMS | Encounter Summary ---
Demographics + + + | Address | [address] | | | [place] [address] | + + + | Home Phone | | + + + | Preferred Language | Unknown | + + + | Marital Status | | + + + | Buddhism Affiliation | CAT | + + + [...] Team Providers + +------+ + | Care Fabric And Accessories Estimator Name | Role | Phone | + +------+ + PCP | Unavailable | + +------+ + Encounter Details +--------+ + + + + | Date | Type | Department | Care Team | Description | +--------+ + + + + | 11/27/ | Procedure - | | Record, Skull Base | Craniectomies | | 2002 | | | Operation | | | | Transcribed | | [...] | + +--------+ + + + | OPERATIVE REPORT | | 11/27/2002 | | | | SKULL BASE | | | | | + +--------+ + + + documented in this encounter Visit Diagnoses Not on filedocumented in this encounter"
--- OUTSIDE RECORDS SUMMARY | ~2019-03-23 | XMS | Encounter Summary ---
Demographics + + + | Address | [address] | | | [place] [address] | + + + | Home Phone | | + + + | Preferred Language | Unknown | + + + | Marital Status | | + + + | Latter-Day Affiliation | CAT | + + + [...] Team Providers + +------+ + | Care Certified Mortician Name | Role | Phone | + [...] | [facility] [address] | [facility] | Phone Call | | | | [facility] | [place], [place] | | | | | Mailcode: PV01 | [address] | | | | | Physician's Pavilion | [phone] | | | | | [place], [place] | | | | | | [address] | | | | | | [phone] | | | +--------+ + + + [...]
--- OUTSIDE RECORDS SUMMARY | ~2019-03-23 | XMS | Encounter Summary ---
Demographics + + + | Address | [address] | | | [place] [address] | + + + | Home Phone | | + + + | Preferred Language | Unknown | + + + | Marital Status | | + + + | Mu-Ism Affiliation | CAT | + + + | Race | White | + + + | Ethnic Group | Not or | + + + Author + + + | Author | [facility] | + + + | Organization | [facility] | + + + | Address | Unknown | + + + | Phone | Unavailable | + + + Support + + +---------+ + | Name | Relationship | Address | Phone | + + +---------+ + | Gerry Moreno | ECON | Unknown | | + + +---------+ + Care Team Providers + +------+ + | Care Director Veterinary Name | Role | Phone | + +------+ + PCP | Unavailable | + +------+ + Reason for Referral Diagnostic Testing (Routine) +--------+--------+ + + + + | Status | Reason | Specialty | Diagnoses / | Referred By | Referred To | | | | | Procedures | Contact | Contact | +--------+--------+ + + + + | Closed | | Radiology | Diagnoses | Zald, | [facility] | | | | | | Nehemias Toledo MD | [address] | | | | Encephalocel | [address] | | | | | e (HCC) | [address] | [facility] | | | | | Procedures | [facility] | Mailcode: | | | | | MRI IAC WWO | [place], [place] | [address] | | | | | CONTRAST | [address] | [facility] | | | | | | | Research | | | | | | | [place] | | | | | | | [place], [place] | | | | | | | [address] | | | | | | | Phone: | | | | | | | [phone] | | | | | | | Fax: | | | | | | | [phone] | +--------+--------+ + + + + Reason for Visit + + + | Reason | Comments | + + + | Prescription | Pt would like new MRI and CT scans and follow up with PETER, will | | | need new orders. Hasn't seen PETER in 4yrs. | + + + Encounter Details +--------+ + + + + | Date | Type | Department | Care Team | Description | +--------+ + + + + | 12/16/ | Telephone | Otolaryngology | Jhoan Benton, | Prescription (Pt | | 2009 | | Otology Services at | MD AREVALO | would like new MRI | | | | [facility] [address] | [facility] | and CT scans and | | | | [facility] | [address] | follow up with PETER, | | | | Mailcode: [address]01 | [address] [place], [place] | will need new | | | | Physician's Pavilion | [address] | orders. Hasn't seen | | | | [place], [place] | (Fax) | PETER in 4yrs.) | | | | [address] | | | | | | [phone] | | | +--------+ + + + [...] as of this encounter Plan of Treatment + +---------+--------+ + + | Name | Type | Priori | Associated Diagnoses | Order Schedule | | | | ty | | | + +---------+--------+ + + | MRI IAC WWO CONTRAST | Imaging | Routin | Encephalocele | Ordered: 12/16/2009 | | | | e | (HCC) | | + +---------+--------+ + + documented as of this encounter Visit Diagnoses + + | Diagnosis | + + | Encephalocele (HCC) - Primary Encephalocele | + + documented in this encounter"
--- OUTSIDE RECORDS SUMMARY | ~2019-03-23 | XMS | Clinical Summary ---
Demographics + + + | Address | [address] | | | [place] [address] | + + + | Home Phone | | + + + | Preferred Language | Unknown | + + + | Marital Status | Legally | + + + | Pentecostalism Affiliation | [id number] | + + + | Race | Unknown | + + + | Ethnic Group | Unknown | + + + Author + + + | Author | [facility] | | | and [place] | + + + | Organization | [facility] | | | and [place] | + + + | Address | Unknown | + + + | Phone | Unavailable | + + + Support + + +---------+ + | Name | Relationship | Address | Phone | + + +---------+ + | Ana Rosa Moreno | ECON | Unknown | | + + +---------+ + Care Team Providers + +------+ + | Care Financial Service Rep Name | Role | Phone | + +------+ + | Errol Perry DO | PP | | + +------+ + Allergies + + + +--------+ + | Active Allergy | Reactions | Severity | Noted | Comments | | | | | Date | | + + + +--------+ + | Azithromycin | Other (See Comments) | Low | | Flu like symptoms. | + + + +--------+ + | Sulfa Antibiotics | Hives | Low | | "Welts" | + + + +--------+ + Medications + + + +---------+------+------+-------+ | Medication | Sig | Dispensed | Refills | Star | End | Statu | | | | | | t | Date | s | | | | | | Date | | | + + + +---------+------+------+-------+ | LORazepam (ATIVAN) | Take 1 mg by mouth | | 0 | 09/1 | | Activ | | 1 mg tablet | every 4 hours. | | | 3/20 | | e | | | | | | 12 | | | + + + +---------+------+------+-------+ | Mirtazapine | TABS-as directed | | 0 | 04/0 | | Activ | | (REMERON PO) | | | | 3/20 | | e | | | | | | 12 | | | + + + +---------+------+------+-------+ | levothyroxine | Take 88 mcg by mouth | | 0 | 04/0 | | Activ | | (LEVOTHROID) 88 mcg | Daily. | | | 3/20 | | e | | tablet | | | | 12 | | | + + + +---------+------+------+-------+ | IBUPROFEN | TABS-by mouth as | | 0 | 09/1 | | Activ | | | needed | | | 3/20 | | e | | | | | | 12 | | | + + + +---------+------+------+-------+ | Calcium Carbonate | CHEW-as needed | | 0 | 09/1 | | Activ | | Antacid (TUMS PO) | | | | 3/20 | | e | | | | | | 12 | | | + + + +---------+------+------+-------+ | diclofenac | Take 75 mg by mouth | | 0 | | | Activ | | (VOLTAREN) 75 mg EC | 2 times daily. | | | | | e | | tablet | | | | | | | + + + +---------+------+------+-------+ | metFORMIN | Take 500 mg by mouth | | 0 | | | Activ | | (GLUCOPHAGE) 500 mg | daily (with | | | | | e | | tablet | breakfast). | | | | | | + + + +---------+------+------+-------+ | | Take 1 tablet by | | 0 | | | Activ | | triamterene-hydrochl | mouth Daily. | | | | | e | | orothiazide | | | | | | | | (MAXZIDE-25) 37.5-25 | | | | | | | | mg per tablet | | | | | | | + + + +---------+------+------+-------+ | valacyclovir | Take 1,000 mg by | | 0 | | | Activ | | (VALTREX) 1 G tablet | mouth 2 times daily. | | | | | e | + + + +---------+------+------+-------+ | dicyclomine | Take PO QID as | 120 | 2 | 12/0 | | Activ | | (BENTYL) 10 mg | needed for abdominal | capsule | | 7/20 | | e | | capsule | cramping. | | | 15 | | | + + + +---------+------+------+-------+ | amitriptyline | Take 0.5 tablets by | 45 | 0 | 04/0 | | Activ | | (ELAVIL) 50 mg | mouth nightly. | tablet | | 3/20 | | e | | tablet | | | | 17 | | | + + + +---------+------+------+-------+ | amitriptyline | TAKE ONE-HALF TABLET | 45 | 0 | 05/2 | | Activ | | (ELAVIL) 50 mg | BY MOUTH NIGHTLY | tablet | | 2/20 | | e | | tablet | | | | 17 | | | + + + +---------+------+------+-------+ | omeprazole | TAKE ONE CAPSULE BY | 90 | 2 | | | Activ | | (PRILOSEC) 40 MG | MOUTH TWICE DAILY | capsule | | 06/12 | | e | | capsule | | | | 17 | | | + + + +---------+------+------+-------+ Active Problems + + + | Problem | Noted Date | + + + | Gastroesophageal reflux disease, esophagitis presence not | 10/13/2015 | | specified | | + + + | Nausea and vomiting, vomiting of unspecified type | 10/13/2015 | + + + + + | Overview: 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 | + + + + + | Abdominal pain, unspecified abdominal location | 10/13/2015 | + + + + + | Overview: 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 | + + + + + | Change in bowel habits | 10/13/2015 | + + + | Obesity, unspecified obesity severity, unspecified obesity type | 10/13/2015 | + + + | Allergic rhinitis | 12/09/2014 | + + + | Chronic cough | 12/09/2014 | + + + | Gastroparesis | 02/15/2012 | + + + | ABDOMINAL PAIN, GENERALIZED | 01/25/2012 | + + + | DIARRHEA | 01/25/2012 | + + + | IMPAIRED FASTING GLUCOSE | | + + + | IRRITABLE BOWEL SYNDROME | | + + + | HYPOTHYROIDISM | | + + + | Genital herpes simplex | | + + + | Depressive disorder | | + + + | GERD (gastroesophageal reflux disease) | | + + + | Eczema | | + + + Resolved Problems + + + + | Problem | Noted | Resolved | | | Date | Date | + + + + | Nausea with vomiting | 01/25/20 | | | | 12 | 5 | + + + + Family History + + +------+ + | Medical History | Relation | Name | Comments | + + +------+ + | Rheum arthritis | Daughter | | | + + +------+ + | COPD | Father | | | + + +------+ + | Breast cancer | Mother | | | + + +------+ + | COPD | Sister | | chronic bronchitis? | + + +------+ + | Tobacco Use | Sister | | | + + +------+ + + +------+ + + | Relation | Name | Status | Comments | + +------+ + + | Daughter | | Alive | | + +------+ + + | Father | | Alive | | + +------+ + + | Mother | | | breast cancer | | | | (Age | | | | | 47) | | + +------+ + + | Sister | | Alive | | + +------+ + + | Son | | Alive | | + +------+ + + Social History + +-------+ +--------+------+ | Tobacco Use | Types | Packs/Day | Years | Date | | | | | Used | | + +-------+ +--------+------+ | Passive Smoke | | | | | | Exposure - Never | | | | | | Smoker | | | | | + +-------+ +--------+------+ + + | Tobacco Cessation: Counseling Given: Yes | | Comments: her father smoked around them as children | + + + + +---------+ + | Alcohol Use | Drinks/We | oz/Week | Comments | | | ek | | | + + +---------+ + | Yes | 2 | 1.0 | | | | Standard | | | | | drinks or | | | | | | | | | | equivalen | | | | | t | | | + + +---------+ + [...] recent travel history available. | + + Last Filed Vital Signs + + + + | Vital Sign | Reading | Time Taken | + + + + | Blood Pressure | 118/80 | 12/02/2015 1043 PST | + + + + | Pulse | 118 | 12/02/20151042 PST | + + + + | Temperature | 36.7 C (98.1 F) | 12/02/20151042 PST | + + + + | Respiratory Rate | 18 | 12/02/20151042 PST | + + + + | Oxygen Saturation | 97% | 12/02/20151042 PST | + + + + | Inhaled Oxygen | - | - | | Concentration | | | + + + + | Weight | 117.9 kg (260 lb) | 12/02/20151042 PST | + + + + | Height | 162.6 cm (5' 4") | 11/21/2015899 PST | + + + + | Body Mass Index | 44.63 | 11/21/2015899 PST | + + + + Plan of Treatment + + + + + | Health Maintenance | Due Date | Last Done | Comments | + + + + + | Vaccine: | | | | | Dtap/Tdap/Td (1 - | 5 | | | | Tdap) | | | | + + + + + | Cervical Cancer | | | | | Screening (Pap) | 6 | | | + + + + + | Breast Cancer | | | | | Screening (Ages | 6 | | | | 50-74) | | | | + + + + + | Vaccine: Zoster (1 | | | | | of 2) | 6 | | | + + + + + | Vaccine: Influenza | | | | | (Season Ended) | 9 | | | + + + + + | Colorectal Cancer | | 11/21/2015, 11/21/2015 | | | Screening | 6 | | | | (Colonoscopy) | | | | + + + + + Results Not on filefrom Last 3 Months Insurance + +--------+ +--------+ +---------+------+ | Payer | Benefi | Subscriber | Effect | Phone | Address | Type | | | t Plan | ID | haylee | | | | | | / | | Dates | | | | | | Group | | | | | | + +--------+ +--------+ +---------+------+ | [employer] [facility] | PHP | [id number] | 10/24/19 | [phone] | | PPO | | PLAN | PEBB | | 15-Pre | 5 | | | | | STATEW | | sent | | | | | | [place]ULO | | | | | | + +--------+ +--------+ +---------+------+ | [employer] [facility] | PHP | [id number] | 10/24/19 | [phone] | | PPO | | PLAN | PEBB | | 15-Pre | 5 | | | | | STATEW | | sent | | | | | | REGULO | | | | | | + +--------+ +--------+ +---------+------+ + +--------+ +--------+ + + | Guarantor Name | Accoun | Relation to | Date | Phone | Billing Address | | | t Type | Patient | of | | | | | | | | | | + +--------+ +--------+ + + | Nu Moreno | Person | Self [birth year] | [address] | | | al/Fam | | 1965 | [phone] | [place] | | | [place] | | | 2 (Home) | [address] | | | | | | [phone] | | | | | | | 5 (Work) | | + +--------+ +--------+ + + Advance Directives Patient has advance care planning documents on file. For more information, please contact:[facility] [address]
--- OUTSIDE RECORDS SUMMARY | ~2019-03-23 | XMS | Encounter Summary ---
Demographics + + + | Address | [address] | | | [place] [address] | + + + | Home Phone | | + + + | Preferred Language | Unknown | + + + | Marital Status | | + + + | Samaritan Affiliation | CAT | + + + [...] Team Providers + +------+ + | Care Infrastructure Technician Name | Role | Phone | + +------+ + PCP | Unavailable | + +------+ + Encounter Details +--------+ + + + + | Date | Type | Department | Care Team | Description | +--------+ + + + + | 09/28/ | Office | | Note, Outpatient | Progress Note | | 2002 | Visit-Trans | | Clinic | | [...] as of this encounter Progress Notes Interface, Obstetric Anaesthetist In - 05/24/2006 1:07 AM PDTCLINIC DATE: 09/28/2002 REFERRING PHYSICIAN: Jay Morales M.D. [address] [place] [id number] History of draining ear after PE tube, consistent with CSF leakage. I reviewed all her films, reviewed them with a neuroradiologist. There are several areas of suspicion for CSF leakage including an area just above the geniculate ganglion at an area around the sigmoid sinus that may represent arachnoid granulation. The patient has not had any meningitis. She is counseled regarding the signs and symptoms of meningitis. Today, she does have fluid in the middle ear cleft consistent with that of spinal fluid. The patient needs to be scheduled for an intrathecal contrast cisternogram to better define the area of the leak. Most likely, we will require a middle fossa craniotomy and/or mastoidectomy to repair the defect. Full PAR was held. They understand and wish to proceed. Again, they need to seek immediate medical attention should any signs or symptoms of meningitis arise, and these are all fully discussed. We will evaluate her further after the CSF intrathecal leak study. Jhoan Benton M.D., F.A.C.S. Door Framer Department of Otolaryngology/ Head and Neck Surgery and Department of Neurosurgery [facility] [place] / [id number] / [id number] / [id number] / [id number] Cid Obstetric Anaesthetist In - 05/24/2006 1:07 AM PDTCLINIC DATE: 09/28/2002 OTOLARYNGOLOGY CLINIC REFERRING PHYSICIAN: Jay Morales M.D. [address] [place] [address]. [address] [place] [id number] CHIEF COMPLAINT: Possible cerebrospinal fluid leak. HISTORY OF PRESENT ILLNESS: Ms. Moreno is a 37-year-old woman referred to Dr. Benton's clinic for management of a right cerebrospinal fluid leak. The patient's otologic history began in 1998 when she was evaluated by Dr. Morales for right-sided pulsatile tinnitus. At that time, it was felt that the tinnitus may be due to otosclerosis, and a treatment regimen including fluoride and calcium was recommended. She was then evaluated again by Dr. Morales earlier this year for complaints of pressure and decreased hearing in the right ear. At this time, she was noted to have fluid in the right ear and a tympanostomy tube was placed. After the tube was placed, the patient began to have right-sided otorrhea that did not resolve. Ultimately, the tube was removed, but the perforation healed, and the middle ear reaccumulated fluid. A new tube was placed in July 2002 which again began to drain clear fluid persistently. Ultimately, this fluid was tested and proved to be cerebrospinal fluid. She then underwent an extensive workup including a temporal bone CAT scan as well as an MRI of the brain and skull base. This revealed a likely site of leak through a defect in the posterior fossa. She was referred to Dr. Benton's clinic for further management. In the meantime, the tympanostomy tube has been removed. At the current time, the patient reports that her right-sided hearing is muscled and that her right ear is occasionally uncomfortable. She also continues to have the pulsatile tinnitus which is worse when she is under stress. She has had no vertigo and denies any otorrhea now that the perforation has healed off. She has no history of otologic disease. She has never had ear surgery. She has no history of head trauma or skull fracture. She has never had meningitis or other central nervous system infection. At the current time, she is having no fevers or neck stiffness. She has never received long-term intravenous antibiotics. She has no history of significant noise exposure. She has no family history of otologic disease. PAST MEDICAL HISTORY: Hypothyroidism. ALLERGIES: None. MEDICATIONS 1. Sudafed p.r.n. 2. Tylenol p.r.n. 3. Synthroid 0.1 mg q.d. SOCIAL HISTORY: The patient does not smoke. She drinks 1 to 2 drinks per month. PAST SURGICAL HISTORY: Cholecystectomy in September 2001. FAMILY HISTORY: Noncontributory. REVIEW OF SYSTEMS: All systems are negative aside from those mentioned above. PHYSICAL EXAMINATION GENERAL: Ms. Moreno is a pleasant, healthy-appearing, 37-year-old woman in no distress. HEENT: Examination of the head reveals no facial erythema or swelling. The facial musculature is normal and symmetric throughout all distributions. Nose: On anterior rhinoscopy, there are no intranasal masses seen. The nasal mucosa is slightly edematous but otherwise appears normal. Oral cavity: There are no ulcerations or lesions of the lips, gingiva, floor of mouth, buccal mucosa, palate, or tongue. The oropharynx appears normal. Ears: The ears are examined using the operating microscope. The left external auditory canal and tympanic membrane appear normal. On the right side, the external auditory canal is clear. The tympanic membrane has healed up, but there does appear to be fluid in the middle ear space. There is no evidence of infection. Nasopharynx is then performed. There are no lesions in the nasopharynx, and there is no apparent fluid emanating from the right eustachian tube. There are no lesions in the oropharynx or hypopharynx. The vallecula, epiglottis, area of epiglottic fold, and arytenoids appear normal. The vocal cords are bilaterally mobile and have no lesions. The piriform sinuses are clear bilaterally. NECK: No palpable neck masses. No lymphadenopathy. DIAGNOSTIC DATA: Review of the CT and MRI brought with the patient reveal a site of erosion into the mastoids at the level of the sigmoid sinus. The jugular bulb region also appears slightly abnormal. There is fluid in the mastoid. There are no obvious lesions to account for the bony erosion. ASSESSMENT: Right posterior fossa cerebrospinal fluid leak. PLAN: Before proceeding with management, we would like to review these films with our neuroradiologist, Dr. Sailaja Colon. There are no obvious lesions to account for the erosion into the mastoid that is seen. We will review the films with Dr. Colon to see whether there may be any other lesions that she can identify. In addition, this will help us determine the most likely site of the leak which will direct our management. If we cannot be entirely sure about the site of the leak, we may proceed with a CT cisternogram to further define it. This will be determined after reviewing the films. This patient was seen by and discussed with Dr. Jhoan Benton. Mike Nix M.D. Jhoan Benton M.D., F.A.C.S. [facility] [place] / [id number] / [id number] / [id number] / Tdocumented in this encounter Plan of Treatment Not on filedocumented as of this encounter Visit Diagnoses Not on filedocumented in this encounter"
--- OUTSIDE RECORDS SUMMARY | ~2019-03-23 | XMS | Encounter Summary ---
Demographics + + + | Address | [address] | | | [place] [address] | + + + | Home Phone | | + + + | Preferred Language | Unknown | + + + | Marital Status | | + + + | Hindu Affiliation | CAT | + + + [...] Team Providers + +------+ + | Care Negative Cleaner Name | Role | Phone | + +------+ + | Samy Carlos DO | PCP | Unavailable | + +------+ + Reason for Visit + + + | Reason | Comments | + + + | Treatment Question | | + + + Encounter Details +--------+ + + + + | Date | Type | Department | Care Team | Description | +--------+ + + + + | 05/25/ | Telephone | Otolaryngology | Jhoan Benton, | Treatment Question | | 2010 | | Otology Services at | [facility] | | | | | [facility] [address] | [facility] | | | | | [facility] | [address] | | | | | Mailcode: [address] | [address] [place], [place] | | | | | Physician[facility] | [address] | | | | | [place], [place] | (Fax) | | | | | [address] | | | | | | [phone] | | | +--------+ + + + [...]
--- OUTSIDE RECORDS SUMMARY | ~2019-03-23 | XMS | Encounter Summary ---
Demographics + + + | Address | [address] | | | [place] [address] | + + + | Home Phone [...] Team Providers + +------+ + | Care Computer Assembler Name | Role | Phone | + [...] | Transcriptions | + + | Interface, Cops In - 10/14/2005 9:09 PM PST | | [id number] | | [id number] RIGO MENDOZA | | | | Date: 10/12/2004 | | | | Attending Surgeon: Omar Pratt M.D. | | | | Respiratory Therapy Instructor(s): Warren Oneill M.D. | | | | [...] position and was placed in a Flores heading machine operator which | | was attached to the [place] frame. The facial nerve electrodes were | [...] The | | patient was removed from Old [place] heading machine operator, extubated, and transferred | | to her [...] | | WR / HS | | [id number] / [id number] / [id number] / [id number] | | | | | | | | | | | | Electronically signed by Omar Pratt 10-15-2004 05:42:14 PM | + + documented in this encounter Visit Diagnoses Not on filedocumented in this encounter"
--- OUTSIDE RECORDS SUMMARY | ~2019-03-23 | XMS | Encounter Summary ---
Demographics + + + | Address | [address] | | | [place] [address] | + + + | Home Phone | | + + + | Preferred Language | Unknown | + + + | Marital Status | | + + + | Nondenominational Affiliation | CAT | + + + | Race | White | + + + | Ethnic Group | Not or | + + + Author + + + | Author | [facility] | + + + | Organization | [facility] | + + + | Address | Unknown | + + + | Phone | Unavailable | + + + Support + + +---------+ + | Name | Relationship | Address | Phone | + + +---------+ + | Gerry Moreno | ECON | Unknown | | + + +---------+ + Care Team Providers + +------+ + | Care Saturation Diver Name | Role | Phone | + +------+ + | Samy Donald DO | PCP | Unavailable | + [...] | | | | | | | [facility] | | | | | | | Mailcode: | | | | | | | [address] | | | | | | | Physician's | | | | | | | Pavilion | | | | | | | [place], [place] | | | | | | | [address] | | | | | | | Phone: | | | | | | | [phone] | | | | | | | Fax: | | | | | | | [phone] | +--------+--------+ + + + + Encounter [...] Assoc | Dx) | | | | [facility] | [address] [facility] | | | | | Mailcode: PV[address] | [address] [place], [place] | | | | | [address] | [address] | | | | | [place], [place] | (Fax) | | | | | [address] | | | | | | [phone] | | | +--------+---------+ + + + [...] | Transcriptions | + + | Orin Morrissey - 08/09/2011 3:55 PM PDT | + [...]
--- OUTSIDE RECORDS SUMMARY | ~2019-03-23 | XMS | Encounter Summary ---
Demographics + + + | Address | [address] | | | [place] [address] | + + + | Home Phone [...] Team Providers + +------+ + | Care Flying Shear Operator Name | Role | Phone | + +------+ + PCP | Unavailable | + +------+ + Encounter Details +--------+ + + + + | Date | Type | Department | Care Team | Description | +--------+ + + + + | 11/14/ | Office | | Note, Outpatient | Progress Note | | 2003 | Visit-Trans | | Clinic | | [...] as of this encounter Progress Notes Interface, Internet Sales Associate In - 04/27/2006 1:11 AM PDTCLINIC DATE: 11/14/2002 I saw the patient in conjunction with resident regarding her CSF leak on the right. Reviewed the films. My findings are contained within the resident note. I performed the independent history and physical examination, and examined the films myself. Jhoan Benton M.D., F.A.C.S. Surg Tech Department of Otolaryngology/ Head and Neck Surgery and Department of Neurosurgery [facility] [place] / [id number] / [id number] / [id number] / Tdocumented in this encounter Plan of Treatment Not on filedocumented as of this encounter Visit Diagnoses Not on filedocumented in this encounter"
--- OUTSIDE RECORDS SUMMARY | ~2019-03-23 | XMS | Encounter Summary ---
Demographics + + + | Address | [address] | | | [place] [address] | + + + | Home Phone | | + + + | Preferred Language | Unknown | + + + | Marital Status | | + + + | Christianity Affiliation | CAT | + + + [...] Team Providers + +------+ + | Care Multimedia Producer Name | Role | Phone | + +------+ + | Felicitas Candelario | PCP | Unavailable | + +------+ + Reason for Visit + + + | Reason | Comments | + + + | Question | | + + + Encounter Details +--------+ + + + + | Date | Type | Department | Care Team | Description | +--------+ + + + + | 01/05/ | Telephone | Otolaryngology | Phoenix Garza, | Question | | 2017 | | Otology Services at | [address] | | | | | [facility] [address] | [facility] | | | | | [facility] | [place], [place] | | | | | Mailcode: [address] | [address] | | | | | Physician[facility] Pavilion | [phone] | | | | | [place], [place] | | | | | | [address] | | | | | | [phone] | | | +--------+ + + + [...]
--- OUTSIDE RECORDS SUMMARY | ~2019-03-23 | XMS | Encounter Summary ---
Demographics + + + | Address | [address] | | | [place] [address] | + + + | Home Phone [...] Team Providers + +------+ + | Care Manager Studio Name | Role | Phone | + [...] as of this encounter Progress Notes Interface, Jewel Hole Rough Opener In - 05/23/2005 6:26 AM PDT [id number] RIGO MENDOZA [facility] Date: 04/13/2005 Clinic: I saw the patient [...] appears normal bilaterally. Jhoan Benton M.D., F.A.C.S. Toilet And Laundry Soap Supervisor Department of Otolaryngology/ Head and Neck Surgery and Department of Neurosurgery [facility] [place] / [id number] / [id number] / [id number] / [id number] documented i n this encounter Plan of Treatment Not on filedocumented as of this encounter Visit Diagnoses Not on filedocumented in this encounter"
--- OUTSIDE RECORDS SUMMARY | ~2019-03-23 | XMS | Encounter Summary ---
Demographics + + + | Address | [address] | | | [place] [address] | + + + | Home Phone [...] Team Providers + +------+ + | Care Record Changer Name | Role | Phone | + +------+ + PCP | Unavailable | + +------+ + Reason for Visit + + + | Reason | Comments | + + + | Tinnitus | Triage, f/u on CT scan results, reviewed scans | + + + Encounter Details +--------+ + + + + | Date | Type | Department | Care Team | Description | +--------+ + + + + | 11/23/ | Telephone | Otolaryngology | Jhoan Benton, | Tinnitus (Triage, | | 2005 | | Otology Services at | [facility] | f/u on CT scan | | | | [facility] [address] | [facility] | results, | | | | [facility] | [address] | | | | | Mailcode: [address] | [address] [place], [place] | reviewed scans) | | | | Phys[facility]ilion | [address] | | | | | [place], [place] | (Fax) | | | | | [address] | | | | | | [phone] | | | +--------+ + + + [...]
--- OUTSIDE RECORDS SUMMARY | ~2019-03-23 | XMS | Encounter Summary ---
Demographics + + + | Address | [address] | | | [place] [address] | + + + | Home Phone | | + + + | Preferred Language | Unknown | + + + | Marital Status | | + + + | Sikhism Affiliation | CAT | + + + [...] Team Providers + +------+ + | Care Animal Rehabilitator Name | Role | Phone | + +------+ + PCP | Unavailable | + +------+ + Encounter Details +--------+ + + + + | Date | Type | Department | Care Team | Description | +--------+ + + + + | 10/13/ | Results | | Manfred Miles, | | | 2003 | Only | | MD Jim | | | | | | Neuroscience | | | | | | [address] | | | | | | [address] | | | | | | [place] [address] | | | | | | [phone] | | | | | | | | +--------+ + [...] | BASIC METABOLIC SET | Urgent | 10/13/2004 | | Results for this | | (NA, K, CL, TCO2, | | 3:20 AM | | procedure are in the | | BUN, CR, GLU, CA) | | PST | | results section. | + +--------+ + + + | CBC ONLY | Urgent | 10/13/2004 | | Results for this | | | | 3:20 AM | | procedure are in the | | | | PST | | results section. | + +--------+ + + + documented in this encounter Results CBC ONLY WITH PLATELET (10/13/2004 3:20 AM PST) + + + + + + | Component | Value | Ref Range | Performed | Pathologist | | | | | At | Signature | + + + + + + | WHITE CELL | 13.9 (H) | 4.4 - 11.0 K/cu | [facility] | | | COUNT | | mm | DEPARTMENT | | | | | | OF | | | | | | PATHOLOGY | | + + + + + + | RED CELL | 3.77 | 3.65 - 5.10 | [facility] | | | COUNT | | M/cu mm | DEPARTMENT | | | | | | OF | | | | | | PATHOLOGY | | + + + + + + | HEMOGLOBIN | 12.3 | 11.4 - 15.0 | [facility] | | | | | g/dL | DEPARTMENT | | | | | | OF | | | | | | PATHOLOGY | | + + + + + + | HEMATOCRIT | 35.5 | 33.0 - 44.6 % | [facility] | | | | | | DEPARTMENT | | | | | | OF | | | | | | PATHOLOGY | | + + + + + + | MCV | 94.0 | 80.0 - 96.0 fL | [facility] | | | | | | DEPARTMENT | | | | | | OF | | | | | | PATHOLOGY | | + + + + + + | MCH | 32.6 (H) | 29.0 - 32.0 pg | [facility] | | | | | | DEPARTMENT | | | | | | OF | | | | | | PATHOLOGY | | + + + + + + | MCHC | 34.6 | 33.4 - 35.5 | [facility] | | | | | g/dL | DEPARTMENT | | | | | | OF | | | | | | PATHOLOGY | | + + + + + + | RDW | 13.2 | 11.5 - 15.0 % | [facility] | | | | | | DEPARTMENT | | | | | | OF | | | | | | PATHOLOGY | | + + + + + + | PLATELET | 205 | 150 - 400 K/cu | [facility] | | | COUNT | | mm | DEPARTMENT | | | | | | OF | | | | | | PATHOLOGY | | + + + + + + | MPV | 8.7 | 7.4 - 10.4 fL | [facility] | | | | | | DEPARTMENT | | | | | | OF | | | | | | PATHOLOGY | | + + + + + + + + | Specimen | + + | | + + + + + + + | Performing | Address | City/State/Zipcode | Phone Number | | Organization | | | | + + + + + | [facility]MENT [facility] | [address] | [place] [address] | | | PATHOLOGY | [address] | | | + + + + + | [facility] | [address] | [place] [address] | | | PATHOLOGY | [address] | | | + + + + + BASIC METABOLIC SET (10/13/2004 3:20 AM PST) + +---------+ + + + | Component | Value | Ref Range | Performed | Pathologist | | | | | At | Signature | + +---------+ + + + | GLUCOSE, | 155 (H) | 65 - 110 mg/dL | [facility] | | | PLASMA | | | DEPARTMENT | | | (LAB) | | | OF | | | | | | PATHOLOGY | | + +---------+ + + + | BUN, PLASMA | 5 (L) | 6 - 20 mg/dL | [facility] [...] +---------+ + + + | SODIUM, | 141 | 136 - 145 | [facility] | | | PLASMA | | mmol/L | DEPARTMENT | | | (LAB) | | | OF | | | | | | PATHOLOGY | | + +---------+ + + + | POTASSIUM, | 3.9 | 3.5 - 5.1 | [facility] | | | PLASMA | | mmol/L | DEPARTMENT | | | (LAB) | | | OF | | | | | | PATHOLOGY | | + +---------+ + + + | CHLORIDE, | 102 | 98 - 107 mmol/L | [facility] | | | PLASMA | | | DEPARTMENT | | | (LAB) | | | OF | | | | | | PATHOLOGY | | + +---------+ + + + | TOTAL CO2, | 27 | 23 - 29 mmol/L | [facility] [...] | + + + + + | [facility] | [address] | [place] [address] | | | PATHOLOGY | [address] | | | + + + + + | [facility] | [address] | [place] [address] | | | PATHOLOGY | [address] | | | + + + + + documented in this encounter Visit Diagnoses Not on filedocumented in this encounter"
--- OUTSIDE RECORDS SUMMARY | ~2019-03-23 | XMS | Encounter Summary ---
Demographics + + + | Address | [address] | | | [place] [address] | + + + | Home Phone | | + + + | Preferred Language | Unknown | + + + | Marital Status | | + + + | Lutheran Affiliation | CAT | + + + | Race | White | + + + | Ethnic Group | Not or | + + + Author + + + | Author | [facility] | + + + | Organization | [facility] | + + + | Address | Unknown | + + + | Phone | Unavailable | + + + Support + + +---------+ + | Name | Relationship | Address | Phone | + + +---------+ + | Gerry Moreno | ECON | Unknown | | + + +---------+ + Care Team Providers + +------+ + | Care Outside Upholsterer Name | Role | Phone | + [...] Closed | | Radiology | Diagnoses | Serenity, | Rad Nuc Med | | | | | CSF leak | MD Jhoan | [facility] [address] | | | | | Procedures | [facility] | [address] | | | | | [place] | Otolaryngolo | [facility] | | | | | CEREBROSPINA | gy Assoc | Mailcode: | | | | | L FLUID FLOW | [address] | [address] | | | | | | [address] | [address] | | | | | (CISTERNOGRA | [place], [place] | [place], [place] | | | | | PHY) | [address] | [address] | | | | | | Phone: | Phone: | | | | | | [phone] | [phone] | | | | | | Fax: | Fax: | | | | | | | [phone] | +--------+--------+ + + + + Consultation (Routine) +--------+--------+ + + + + | Status | Reason | Specialty | Diagnoses / | Referred By | Referred To | | | | | Procedures | Contact | Contact | +--------+--------+ + + + + | Closed | | Otolaryngolog | Diagnoses | McMderekmey, | Ent Gen | | | | y | CSF leak | MD Jhoan | [facility] | | | | | Procedures | [facility] | [address] | | | | | CONSULT TO | Otolaryngolo | [address] | | | | | ENT / | gy Assoc | [address] | | | | | OTOLARYNGOLO | [address] | Mailcode: | | | | | [place] | [address] | [address] | | | | | | [place], [place] | Physician's | | | | | | [address] | Pavilion | | | | | | Phone: | [place], [place] | | | | | | [phone] | [address] | | | | | | Fax: | Phone: | | | | | | | [phone] | | | | | | | Fax: | | | | | | | [phone] | +--------+--------+ + + + + Diagnostic Testing (Routine) +--------+--------+ + + + + | Status | Reason | Specialty | Diagnoses / | Referred By | Referred To | | | | | Procedures | Contact | Contact | +--------+--------+ + + + + | Closed | | Radiology | Diagnoses | Serenity, | Rad Ct Scan | | | | | CSF leak | MD Jhoan | [address] | | | | | Procedures | [facility] | [address] | | | | | [address] [place] | Otolaryngolo | [facility] | | | | | BENIGN | gy Assoc | Road | | | | | DISEASE W | [address] | Mailcode: | | | | | | [address] | [address] [place] | | | | | | [place], [place] | [facility] | | | | | | [address] | [place], [place] | | | | | | Phone: | [phone] | | | | | | [phone] | Phone: | | | | | | Fax: | [phone] | | | | | | [phone] | Fax: | | | | | | | [phone] | +--------+--------+ + + + + Diagnostic Testing (Routine) +--------+--------+ + + + + | Status | Reason | Specialty | Diagnoses / | Referred By | Referred To | | | | | Procedures | Contact | Contact | +--------+--------+ + + + + | Closed | | Radiology | Diagnoses | McMenomey, | Rad General | | | | | CSF leak | MD Jhoan | [address] [facility] [address] | | | | | Procedures | [facility] | [address] | | | | | X-RAY SPINAL | Otolaryngolo | Mailcode: | | | | | TAP & | gy Assoc | [facility] | | | | | ASPIRATION | [address] | for Health | | | | | W/GUIDANCE | [address] | and Healing, | | | | | | [place], [place] | 3rd Floor | | | | | | [address] | [place], [place] | | | | | | Phone: | [phone] | | | | | | [phone] | Phone: | | | | | | Fax: | [phone] | | | | | | [phone] | Fax: | | | | | | | [phone] | +--------+--------+ + + + + Reason for Visit + + + | Reason | Comments | + + + | Ear problem | here for ear check | + + + Consultation (Routine) +--------+--------+ [...] | | | | | | | [employer] | | | | | | | Mailcode: | | | | | | | [address] | | | | | | | Physician's | | | | | | | Pedro | | | | | | | [place], [place] | | | | | | | [address] | | | | | | | Phone: | | | | | | | [phone] | | | | | | | Fax: | | | | | | | [phone] | +--------+--------+ + + + + Encounter Details +--------+---------+ + + + | Date | Type | Department | Care Team | Description | +--------+---------+ + + + | 05/21/ | Office | Otolaryngology | Jhoan Benton, | CSF leak (Primary | | 2010 | Visit | Otology Services at | MD AREVALO | Dx); Cerebrospinal | | | | [facility] [address] | Otolaryngology Assoc | fluid otorrhea | | | | [facility] | [address] [place] [address] | | | | | Mailcode: [address] | [address] [place], [place] | | | | | Physician[facility] Pavilion | [address] | | | | | [place], [place] | (Fax) | | | | | [address] | | | | | | [phone] | | | +--------+---------+ + + + [...] encounter Progress Notes Jhoan Benton MD - 05/21/2011 4:16 PM Radha Moreno is a 45 year old female who is being seen today because of pain/headaches/ and salty taste in her mouth. She has a hx of CSF leak. She has been having a nose drainage lately. The headaches started again 4 months ago, severely. She is having a hard time remembering. She describes it as disoriented. S he is not working because she can't remember how to do her job. She has shaking all of the time. She has headaches top of the denominational and low to the posterior part of her neck. Laying down makes her headache feel better. She can hear her heart beat more in her left ear agai n. She has a history of Bilateral CSF leaks and temporal encephaloceles. The right was repaire d 11/2002 and the left 09/2004. She had no postop complications. She returns today because of increased headaches after anxiolytic medication changes. She has a history of anxiety and p anic attacks for which she takes alprazolam and citalopram. When her PCP changed these medic ations she started having left sided headaches, which she describes as located in her denominational s, feels like a tight band, and worsens with stress. She denies otorrhea, rhinorrhea, vertig o, dysequilibrium, hearing loss, tinnitus. A&OX3, non toxic: meds, Ros,pmh all reviewed No depression or agitation, speech fluent, ti, no nystagmus, gait wnl Face: no lesions, no rhinorrhea Neck: no nodes Parotid thyroid wnl Oc op : no lesions Resp unlabored Neuro non focal , mtr/sensory non focal Ears: Normal exam, no me fluid either ear A/P: 44 year old female 6 and 7 years status post repair of bilateral CSF leaks and tempora l encephaloceles, now with headaches. No concern of repeat CSF leak or encephalocele on exam or MRI. She needs to have a lumbar cisternogram CSF leak test to rule this out. She shou ld be seen by a neurologist if she does not have a leak for LEE mgmt Prescription for #40 Vicodin with 3 refills was given. Note transcribed by YOANDY documented in this en counter Plan of Treatment Not on filedocumented as of this encounter Procedures + +--------+ + + + | Procedure Name | Priori | Date/Time | Associated Diagnosis | Comments | | | ty | | | | + +--------+ + + + | NM CEREBROSPINAL | Routin | 06/03/2011 | CSF leak | Results for this | | FLUID FLOW | e | 3:17 PM | | procedure are in the | | (CISTERNOGRAPHY) | | PDT | | results section. | + +--------+ + + + | CT TEMPBONE BENIGN | Routin | 06/03/2011 | CSF leak | Results for this | | DISEASE W CONTRAST | e | 10:12 AM | | procedure are in the | | | | PDT | | results section. | + +--------+ + + + documented in this encounter Results NM CEREBROSPINAL FLUID FLOW (CISTERNOGRAPHY) (06/03/2011 3:17 PM PDT) + + + + + + | Component | Value | Ref Range | Performed | Pathologist | | | | | At | Signature | + + + + + + | NM CSF FLOW | Clinical history:Patient | | | | | | with history of | | | | | CISTERNOGRA | bilateral CSF leaks and | | | | | PHY | temporalencephalocele's, | | | | | | now with recurrence of | | | | | | headaches. No | | | | | | reported evan | | | | | | rhinorrhea Comparison:No | | | | | | comparable study | | | | | | Study:CSF leak study of | | | | | | June 03, 2011 | | | | | | Findings:In fluoroscopy | | | | | | suite the patient | | | | | | received an LP by | | | | | | neuroradiology, | | | | | | noradiographic contrast | | | | | | and 0.5 mCi of indium | | | | | | 111 DTPA. Please | | | | | | seeneuroradiology report | | | | | | for details. Pledgets | | | | | | had been placed in the | | | | | | nose, 3 on each | | | | | | side. Four hourspost | | | | | | procedure patient came | | | | | | to nuclear medicine for | | | | | | imaging along thespine, | | | | | | anteriorly and | | | | | | posteriorly, and | | | | | | bilateral views of the | | | | | | head.These Show | | | | | | tracer clearly at the | | | | | | base of the skull and | | | | | | along thelateral | | | | | | edges. No suggestion | | | | | | of leak is seen. A | | | | | | specimen of the | | | | | | patient's blood was | | | | | | collected for plasma | | | | | | counts,and counts of the | | | | | | plasma were compared to | | | | | | the pre-nasal pledgets | | | | | | oneach side of the | | | | | | nose. Maximum counts | | | | | | in the pledgets are only | | | | | | 60%of the blood | | | | | | specimen, which does not | | | | | | support any CSF leak | | | | | | reachingthe nares. | | | | | | IMPRESSION:1. CSF | | | | | | leak scan by nuclear | | | | | | medicine labeling | | | | | | techniques is negative. | | | | | | END OF IMPRESSION: | | | | | | Attending Radiologists: | | | | | | Jorge Hernandez, | | | | | | IsamarAuthor: Jorge Houston | | | | | | Isamar Hernandez I have | | | | | | personally viewed this | | | | | | procedure/exam, reviewed | | | | | | this report,and made | | | | | | changes to it where | | | | | | appropriate. | | | | | | Final/Electronically | | | | | | signed / Jorge Houston | | | | | | Mary 06/03/2011 18:21 | | | | | | PM | | | | + + + + + + + + | Specimen | + + | | + + + +---------+ + + | Performing | Address | City/State/Zipcode | Phone Number | | Organization | | | | + +---------+ + + | [facility] | | | | | RADIOLOGY | | | | + +---------+ + + CT TEMPBON BENIGN DISEASE W (06/03/2011 10:12 AM PDT) + + + + + + | Component | Value | Ref Range | Performed | Pathologist | | | | | At | Signature | + + + + + + | CT TEMPBON | Normal pressure | | | | | BENIGN | cisternogram with CT | | | | | DISEASE W | imaging, including | | | | | | sagittal andcoronal | | | | | | reformations, 06/03/11. | | | | | | INDICATION: 45-year-old | | | | | | female is 7 years status | | | | | | post repair ofbilateral | | | | | | CSF leaks and temporal | | | | | | encephaloceles, now with | | | | | | headaches. COMPARISON: | | | | | | 12/13/2001. OPERATORS: | | | | | | Drs. Jeter and | | | | | | Qing. MEDS: None. | | | | | | FLUORO TIME: Total time: | | | | | | 97 seconds. Technique: | | | | | | PARQ discussion was held | | | | | | with the patient, | | | | | | who signed | | | | | | informedconsent. A team | | | | | | pause was performed. The | | | | | | patient was positioned | | | | | | proneon the fluoroscopy | | | | | | table and prepped and | | | | | | draped in routine | | | | | | sterilefashion. 2cc | | | | | | of 1% lidocaine local | | | | | | anesthetic was given at | | | | | | theinjection site. A | | | | | | 20 gauge needle was used | | | | | | to perform | | | | | | lumbarpuncture at the L4 | | | | | | level. After return | | | | | | of clear CSF, 500 | | | | | | microgramsof Indium | | | | | | 111-DTPA and 5 cc of | | | | | | Omnipaque 180 was | | | | | | injectedintrathecally | | | | | | under intermittent | | | | | | fluoroscopic | | | | | | observation. Therewer | | | | | | e no complications. | | | | | | Routine fluoroscopic | | | | | | images were | | | | | | obtained. The patient | | | | | | was then sentto the CT | | | | | | scanner for imaging | | | | | | through the temporal | | | | | | bones and skullbase with | | | | | | sagittal and coronal | | | | | | reformatted | | | | | | images. High-resoluti | | | | | | onaxial and | | | | | | coronal/coronally | | | | | | reformatted CT images of | | | | | | the skull base,with | | | | | | special attention to the | | | | | | temporal bones were | | | | | | obtained FINDINGS: There | | | | | | is no abnormal contrast | | | | | | is seen within the | | | | | | paranasal sinuses | | | | | | ormiddle ears | | | | | | bilaterally to suggest | | | | | | CSF leak. There is | | | | | | opacificationof one | | | | | | mastoid air cell in the | | | | | | left of no clinical | | | | | | significance.Limited | | | | | | evaluation of the brain | | | | | | parenchyma is | | | | | | unremarkable.Postsurgica | | | | | | l changes from bilateral | | | | | | temporoparietal | | | | | | craniotomies | | | | | | arenoted. Postsurgica | | | | | | l changes from bilateral | | | | | | antrostomies | | | | | | andethmoidectomies are | | | | | | also | | | | | | noted. Pledgelets are | | | | | | in place within | | | | | | thenasal cavity. | | | | | | IMPRESSION: 1. No | | | | | | abnormal contrast seen | | | | | | within the paranasal | | | | | | sinuses or middleears | | | | | | bilaterally to suggest a | | | | | | CSF leak. | | | | | | 2. Postsurgical | | | | | | changes from bilateral | | | | | | temporoparietal | | | | | | craniotomies,bilateral | | | | | | antrostomies, and | | | | | | ethmoidectomies. By my | | | | | | electronic signature | | | | | | listed below, I, the | | | | | | attendingradiologist, | | | | | | was present for the | | | | | | critical portions of the | | | | | | procedureas described | | | | | | in this note. Attending | | | | | | Radiologists: Gerry | | | | | | Isamar JeterAuthor: | | | | | | Balwinder Longo M.D. | | | | | | I have personally viewed | | | | | | this procedure/exam, | | | | | | reviewed this report,and | | | | | | made changes to it | | | | | | where appropriate. | | | | | | Final/Electronically | | | | | | signed / Gerry | | | | | | Steffany 06/03/2011 | | | | | | 3:39 PM Pending final | | | | | | approval / Balwinder | | | | | | Qing 06/03/2011 | | | | | | 15:30 PM | | | | + + + + + + + + | Specimen | + + | | + + + +---------+ + + | Performing | Address | City/State/Zipcode | Phone Number | | Organization | | | | + +---------+ + + | [facility] | | | | | RADIOLOGY | | | | + +---------+ + + X-RAY SPINAL TAP & ASPIRATION W/GUIDANCE (06/03/2011 10:10 AM PDT) + + + + + + | Component | Value | Ref Range | Performed | Pathologist | | | | | At | Signature | + + + + + + | X-RAY | Normal pressure | | | | | SPINAL TAP | cisternogram with CT | | | | | & | imaging, including | | | | | ASPIRATION | sagittal andcoronal | | | | | W/GUIDANCE | reformations, 06/03/11. | | | | | | INDICATION: 45-year-old | | | | | | female is 7 years status | | | | | | post repair ofbilateral | | | | | | CSF leaks and temporal | | | | | | encephaloceles, now with | | | | | | headaches. COMPARISON: | | | | | | 12/13/2001. OPERATORS: | | | | | | Drs. Jeter and | | | | | | Qing. MEDS: None. | | | | | | FLUORO TIME: Total time: | | | | | | 97 seconds. Technique: | | | | | | PARQ discussion was held | | | | | | with the patient, | | | | | | who signed | | | | | | informedconsent. A team | | | | | | pause was performed. The | | | | | | patient was positioned | | | | | | proneon the fluoroscopy | | | | | | table and prepped and | | | | | | draped in routine | | | | | | sterilefashion. 2cc | | | | | | of 1% lidocaine local | | | | | | anesthetic was given at | | | | | | theinjection site. A | | | | | | 20 gauge needle was used | | | | | | to perform | | | | | | lumbarpuncture at the L4 | | | | | | level. After return | | | | | | of clear CSF, 500 | | | | | | microgramsof Indium | | | | | | 111-DTPA and 5 cc of | | | | | | Omnipaque 180 was | | | | | | injectedintrathecally | | | | | | under intermittent | | | | | | fluoroscopic | | | | | | observation. Therewer | | | | | | e no complications. | | | | | | Routine fluoroscopic | | | | | | images were | | | | | | obtained. The patient | | | | | | was then sentto the CT | | | | | | scanner for imaging | | | | | | through the temporal | | | | | | bones and skullbase with | | | | | | sagittal and coronal | | | | | | reformatted | | | | | | images. High-resoluti | | | | | | onaxial and | | | | | | coronal/coronally | | | | | | reformatted CT images of | | | | | | the skull base,with | | | | | | special attention to the | | | | | | temporal bones were | | | | | | obtained FINDINGS: There | | | | | | is no abnormal contrast | | | | | | is seen within the | | | | | | paranasal sinuses | | | | | | ormiddle ears | | | | | | bilaterally to suggest | | | | | | CSF leak. There is | | | | | | opacificationof one | | | | | | mastoid air cell in the | | | | | | left of no clinical | | | | | | significance.Limited | | | | | | evaluation of the brain | | | | | | parenchyma is | | | | | | unremarkable.Postsurgica | | | | | | l changes from bilateral | | | | | | temporoparietal | | | | | | craniotomies | | | | | | arenoted. Postsurgica | | | | | | l changes from bilateral | | | | | | antrostomies | | | | | | andethmoidectomies are | | | | | | also | | | | | | noted. Pledgelets are | | | | | | in place within | | | | | | thenasal cavity. | | | | | | IMPRESSION: 1. No | | | | | | abnormal contrast seen | | | | | | within the paranasal | | | | | | sinuses or middleears | | | | | | bilaterally to suggest a | | | | | | CSF leak. | | | | | | 2. Postsurgical | | | | | | changes from bilateral | | | | | | temporoparietal | | | | | | craniotomies,bilateral | | | | | | antrostomies, and | | | | | | ethmoidectomies. By my | | | | | | electronic signature | | | | | | listed below, I, the | | | | | | attendingradiologist, | | | | | | was present for the | | | | | | critical portions of the | | | | | | procedureas described | | | | | | in this note. Attending | | | | | | Radiologists: Gerry | | | | | | Isamar JeterAuthor: | | | | | | Balwinder Longo M.D. | | | | | | I have personally viewed | | | | | | this procedure/exam, | | | | | | reviewed this report,and | | | | | | made changes to it | | | | | | where appropriate. | | | | | | Final/Electronically | | | | | | signed / Gerry | | | | | | Steffany 06/03/2011 | | | | | | 3:39 PM Pending final | | | | | | trey / Balwinder | | | | | | Qing 06/03/2011 | | | | | | 15:30 PM | | | | + + + + + + + + | Specimen | + + | | + + + +---------+ + + | Performing | Address | City/State/Zipcode | Phone Number | | Organization | | | | + +---------+ + + | [facility] | | | | | RADIOLOGY | | | | + +---------+ + + documented in this encounter Visit Diagnoses + + | Diagnosis | + + | CSF leak - Primary Other specified disorder of nervous system | + + | Cerebrospinal fluid otorrhea | + + documented in this encounter"
--- OUTSIDE RECORDS SUMMARY | ~2019-03-23 | XMS | Encounter Summary ---
Demographics + + + | Address | [address] | | | [place] [address] | + + + | Home Phone | | + + + | Preferred Language | Unknown | + + + | Marital Status | | + + + | Judaism Affiliation | CAT | + + + [...] Team Providers + +------+ + | Care General Assistant Name | Role | Phone | + [...] as of this encounter Progress Notes Interface, Beater Dumper In - 05/23/2005 6:26 AM PDT [id number] RIGO MENDOZA [facility] Date: 04/13/2005 Clinic: Otology Neurotology Clinic Subjective: [...] Mike Ken M.D. Jhoan Benton M.D., F.A.C.S. Nanotechnologist Department of Otolaryngology/ Head and Neck Surgery and Department of Neurosurgery / HS [id number] / [id number] / [id number] / [id number] documented i n this encounter Plan of Treatment Not on filedocumented as of this encounter Visit Diagnoses Not on filedocumented in this encounter"
--- OUTSIDE RECORDS SUMMARY | ~2019-03-23 | XMS | Encounter Summary ---
Demographics + + + | Address | [address] | | | [place] [address] | + + + | Home Phone | | + + + | Preferred Language | Unknown | + + + | Marital Status | | + + + | Taoism Affiliation | CAT | + + + | Race | White | + + + | Ethnic Group | Not or | + + + Author + + + | Author | [facility] | + + + | Organization | [facility] | + + + | Address | Unknown | + + + | Phone | Unavailable | + + + Support + + +---------+ + | Name | Relationship | Address | Phone | + + +---------+ + | Gerry Moreno | ECON | Unknown | | + + +---------+ + Care Team Providers + +------+ + | Care Property Utilization Manager Name | Role | Phone | [...] | +--------+--------+ + + + + | Denied | | Radiology | Diagnoses | Hullar, | Rad Ct Scan | | | | | CSF | Phoenix English | [address] | | | | | otorrhea | [address] | | | | | Procedures | [address] | [address] | | | | | CT TEMPBONE | [address] | Road | | | | | BENIGN | [place], [place] | Mailcode: | | | | | [place]EASE [place] | [address] | [address] [facility] | | | | | [place] | Phone: | Hospital | | | | | [place] | [phone] | [place], [place] | | | | | SCAN,ORBIT/S | Fax: | [address] | | | | | BELINDA/POST | [phone] | Phone: | | | | | FOSSA/EAR,W/ | | [phone] | | | | | O | | Fax: | | | | | | | [phone] | +--------+--------+ + + + + Diagnostic Testing (Routine) +--------+--------+ + + + + | Status | Reason | Specialty | Diagnoses / | Referred By | Referred To | | | | | Procedures | Contact | Contact | +--------+--------+ + + + + | Denied | | Radiology | Diagnoses | Hullar, | Rad Ct Scan | | | | | CSF | Phoenix English, | [facility] [address] | | | | | otorrhea | MD [address] | [address] | | | | | Procedures | Salvador Demarco | [facility] | | | | | CT TEMPBONE | [address] | Road | | | | | BENIGN | [place], [place] | Mailcode: | | | | | DISEASE [place] | [address] | [address] [facility] | | | | | [place] | Phone: | Hospital | | | | | [place] | [phone] | [place], [place] | | | | | SCAN,ORBIT/S | Fax: | [address] | | | | | BELINDA/POST | [phone] | Phone: | | | | | FOSSA/EAR,W/ | | [phone] | | | | | O | | Fax: | | | | | | | [phone] | +--------+--------+ + + + + Reason for Visit Diagnostic Testing (Routine) +--------+--------+ + + + + | Status | Reason | Specialty | Diagnoses / | Referred By | Referred To | | | | | Procedures | Contact | Contact | +--------+--------+ + + + + | Denied | | Radiology | Diagnoses | Hullar, | Rad Ct Scan | | | | | CSF | Phoenix English, | [facility] [address] | | | | | otorrhea | MD [address] | [address] | | | | | Procedures | Salvador Demarco | [address] | | | | | CT TEMPBONE | [address] | Road | | | | | BENIGN | [place], [place] | Mailcode: | | | | | [place]EASE [place] | [address] | [address] [facility] | | | | | [place] | Phone: | Hospital | | | | | [place] | [phone] | [place], [place] | | | | | SCAN,ORBIT/S | Fax: | [address] | | | | | BELINDA/POST | [phone] | Phone: | | | | | FOSSA/EAR,W/ | | [phone] | | | | | O | | Fax: | | | | | | | [phone] | +--------+--------+ + + + + Encounter Details +--------+ + + + + | Date | Type | Department | Care Team | Description | +--------+ + + + + | 04/11/ | Hospital | Diagnostic Imaging | Phoenix Garza, | | | 2017 | Encounter | Services at [facility] | [address] | | | | | [address] | [facility] | | | | | [facility] | [place], [place] | | | | | Mailcode: [address] [facility] | [address] | | | | | [facility], | [phone] | | | | | [place] [address] | | | | | | [phone] | | | +--------+ + + + [...] + + documented as of this encounter Medications at Time of Discharge + + + +---------+ + + | Medication | Sig | Dispensed | Refills | Start | End Date | | | | | | Date | | + + + +---------+ + + | buPROPion SR 100 | Take 100 mg by mouth | | 0 | 05/13/20 | | | mg oral tablet | once daily. | | | 16 | | | extended release | | | | | | + + + +---------+ + + | cyanocobalamin, | Place under tongue. | | 0 | | | | vitamin B-12, | | | | | | | (VITAMIN B-12) 5,000 | | | | | | | mcg sublingual | | | | | | | tablet, sublingual | | | | | | + + + +---------+ + + | DULOXETINE HCL | Take by mouth. | | 0 | | | | (CYMBALTA ORAL) | | | | | | + + + +---------+ + + | escitalopram | Take 10 mg by mouth | | 0 | | | | (LEXAPRO) 10 mg Oral | once daily. | | | | | | Tablet | | | | | | + + + +---------+ + + | GABAPENTIN ORAL | Take by mouth. | | 0 | | | + + + +---------+ + + | Levothyroxine 75 | Take by mouth once | | 0 | | | | mcg Oral Capsule | daily. | | | | | + + + +---------+ + + | levothyroxine 88 | Take 88 mcg by mouth | | 0 | 01/25/20 | | | mcg oral tablet | once daily. | | | 12 | | + + + +---------+ + + | VITAMIN D2 50,000 | | | 0 | 05/07/20 | | | unit oral capsule | | | | 16 | | + + + +---------+ + + documented as of this encounter Plan of Treatment Not on filedocumented as of this encounter Procedures + +--------+ + + + | Procedure Name | Priori | Date/Time | Associated Diagnosis | Comments | | | ty | | | | + +--------+ + + + | CT TEMPBONE BENIGN | Routin | 04/11/2017 | CSF otorrhea | Results for this | | DISEASE WO CONTRAST | e | 4:15 PM | | procedure are in the | | | | PDT | | results section. | + +--------+ + + + documented in this encounter Results CT TEMPBONE BENIGN DISEASE WO CONTRAST (04/11/2017 4:15 PM PDT) + + | Specimen | + + | | + + + + + | Narrative | Performed At | + + + | EXAM: CT Temporal Bones without contrast HISTORY: CSF leak, | [facility] | | evaluate for tegmen dehiscence COMPARISON: 06/03/11 TECHNIQUE: | RADIOLOGY VOICE | | CT temporal bones without contrast with coronal reformations. | RECOGNITION | | FINDINGS: Right temporal bone: There is thinning and possible | | | dehiscence of the roof of the right superior semicircular canal, | | | similar to prior room coronal series 3 images 89-90). No definite | | | osseous covering of the geniculate portion of the facial nerve canal, | | | similar to prior. There is thinning and possible dehiscence of the | | | sigmoid plate, similar to prior. The tegmentum tympani is intact. The | | | internal auditory canal is normal.The cochlea, vestibule, and | | | semicircular canals are otherwise normal. There is no | | | otosclerosis. The malleus, incus and, stapes are present. The | | | incus-stapedial joint is normal. The oval and round windows are | | | normal. The endolymphatic duct is not dilated.The tympanic membrane | | | is normal. The internal carotid artery is normal in it's course. | | | Left temporal bone: The tegmentum tympani is intact. Aeration of | | | the left petrous apex is observed. The internal auditory canal is | | | normal.The cochlea, vestibule, and semicircular canals are normal. | | | There is no otosclerosis. The malleus, incus and, stapes are | | | present. The incus-stapedial joint is normal. The oval and round | | | windows are normal. Facial nerve is normal in its course. The | | | endolymphatic duct is not dilated.The tympanic membrane is normal. The | | | internal carotid artery is normal in it's course. Findings of | | | bilateral ethmoidectomies, sphenoidectomy and turbinectomies, similar | | | to prior. IMPRESSION: 1. No evidence of tegmen tympani | | | dehiscence. Mastoids and middle ears are clear. 2. 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 3. | | | Thinning with possible dehiscence of the right sigmoid plate. 4. | | | Right geniculate ganglion dehiscence. I have personally | | | reviewed the images and, if necessary, edited the report. I agree | | | with the report as now presented. | | + + + + + | Procedure Note | + + | Service Account, Radiant Res In Interface - 04/11/2017 7:08 PM PDT EXAM: CT | | Temporal Bones without contrastHISTORY: CSF leak, evaluate for tegmen | | dehiscenceCOMPARISON: 06/03/11TECHNIQUE: CT temporal bones without contrast with coronal | | reformations.FINDINGS: Right temporal bone: There is thinning and possible dehiscence of | | the roof of the right superior semicircular canal, similar to prior room coronal series | | 3 images 89-90). No definite osseous covering of the geniculate portion of the facial | | nerve canal, similar to prior. There is thinning and possible dehiscence of the sigmoid | | plate, similar to prior. The tegmentum tympani is intact. The internal auditory canal is | | normal.The cochlea, vestibule, and semicircular canals are otherwise normal. There is | | no otosclerosis. The malleus, incus and, stapes are present. The incus-stapedial | | joint is normal. The oval and round windows are normal. The endolymphatic duct is not | | dilated.The tympanic membrane is normal. The internal carotid artery is normal in it's | | course. Left temporal bone: The tegmentum tympani is intact. Aeration of the left | | petrous apex is observed. The internal auditory canal is normal.The cochlea, vestibule, | | and semicircular canals are normal. There is no otosclerosis. The malleus, incus and, | | stapes are present. The incus-stapedial joint is normal. The oval and round windows | | are normal. Facial nerve is normal in its course. The endolymphatic duct is not | | dilated.The tympanic membrane is normal. The internal carotid artery is normal in it's | | course. Findings of bilateral ethmoidectomies, sphenoidectomy and turbinectomies, | | similar to prior. IMPRESSION:1. No evidence of tegmen tympani dehiscence. Mastoids and | | middle ears are clear.2. Thinning with possible dehiscence of the right superior | | semicircular canal.3. Thinning with possible dehiscence of the right sigmoid plate.4. | | Right geniculate ganglion dehiscence.I have personally reviewed the images and, if | | necessary, edited the report. I agree with the report as now presented. | |2. 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 | |3. Thinning with possible dehiscence of the right sigmoid plate. | |4. Right geniculate ganglion dehiscence. | | | | | |I have personally reviewed the images and, if necessary, edited the report. I agree with t he report as now presented. | + + + +---------+ + + | Performing | Address | City/State/Zipcode | Phone Number | | Organization | | | | + +---------+ + + | [facility] | | | | | VOICE RECOGNITION | | | | + +---------+ + + documented in this encounter Visit Diagnoses + + | Diagnosis | + + | CSF otorrhea Cerebrospinal fluid otorrhea | + + documented in this encounter"
--- OUTSIDE RECORDS SUMMARY | ~2019-03-23 | XMS | Encounter Summary ---
Demographics + + + | Address | [address] | | | [place] [address] | + + + | Home Phone [...] Team Providers + +------+ + | Care Notch Grinder Name | Role | Phone | + [...] | P[facility] [address] | [facility] | | | | | [facility] | [place], [place] | | | | | Mailcode: PV01 | [address] | | | | | PhysicianMoriahs Pedro | [phone] | | | | | [place], [place] | | | | | | [address] | | | | | | [phone] | | | +--------+--------+ + + + [...]
--- OUTSIDE RECORDS SUMMARY | ~2019-03-23 | XMS | Encounter Summary ---
Demographics + + + | Address | [address] | | | [place] [address] | + + + | Home Phone | | + + + | Preferred Language | Unknown | + + + | Marital Status | | + + + | Moravian Affiliation | CAT | + + + | Race | White | + + + | Ethnic Group | Not or | + + + Author + + + | Author | [facility] | + + + | Organization | [facility] | + + + | Address | Unknown | + + + | Phone | Unavailable | + + + Support + + +---------+ + | Name | Relationship | Address | Phone | + + +---------+ + | Gerry Moreno | ECON | Unknown | | + + +---------+ + Care Team Providers + +------+ + | Care Barrel Lathe Operator Outside Name | Role | Phone | + [...] | CONSULT TO | Cory Garcia | [address] | | | | | ENT OTOLOGY | [place], [place] | Mailcode: | | | | | | [address] | [address] | | | | | | Phone: | Physician's | | | | | | [phone] | Pavilion | | | | | | Fax: | [place], [place] | | | | | | [phone] | [address] | | | | | | | Phone: | | | | | | | [phone] | | | | | | | Fax: | | | | | | | [phone] | +--------+--------+ + + + + Encounter [...] | [facility] [address] | [facility] | Conductive hearing | | | | [facility] | [place], [place] | loss, middle ear | | | | Mailcode: PV01 | [address] | | | | | Physician'dianna Vasquez | [phone] | | | | | [place], [place] | | | | | | [address] | | | | | | [phone] | | | +--------+---------+ + + + [...] of the num bers below or through [employer]. Your questions can best be answered during business hours at [phone], but you can always reach the [facility] rail flaw detector operator at [phone] to contac t our on-call team. We look forward to taking care of you in the future. Dr. Ricky Garza MD, Director JYOTHI Villegas MA documented in this encounter Progress Notes Phoenix Garza MD - 08/20/2016 9:43 AM PDTFormatting of this note might be different f rom the original. Division of Otology, Neurotology, and Skull Base Surgery Department of Otolaryngology/Head and Neck Surgery [facility] Patient: Nu Moreno Referring Provider: Phoenix [...] Program Department of Otolaryngology-Head and Neck Surgery [address], [address] [address] tel: [phone] fax: [phone] [email or web address] documented in this encounter Plan of Treatment Not on filedocumented as of this encounter Procedures + +--------+ + + + | Procedure Name | Priori | Date/Time | Associated Diagnosis | Comments | | | ty | | | | + +--------+ + + + | [place] EAR MICROSCOPY | Routin | 08/20/2016 | [...]
--- OUTSIDE RECORDS SUMMARY | ~2019-03-23 | XMS | Encounter Summary ---
Demographics + + + | Address | [address] | | | [place] [address] | + + + | Home Phone [...] Team Providers + +------+ + | Care C Wpf Developer Name | Role | Phone | [...] as of this encounter Progress Notes Interface, Acute Care Nurse Practitioner In - 05/24/2005 9:05 AM PDT [id number] RIGO MENDOZA [facility] Date: 04/13/2005 Clinic: I saw the patient [...] appears normal bilaterally. Jhoan Benton M.D., F.A.C.S. Infrastructure Design Engineer Department of Otolaryngology/ Head and Neck Surgery and Department of Neurosurgery [facility] / [id number] / [id number] / [id number] / [id number] Electronically signed by Jhoan Benton 05-19-2005 01:14:08 PM documented i n this encounter Plan of Treatment Not on filedocumented as of this encounter Visit Diagnoses Not on filedocumented in this encounter"
--- OUTSIDE RECORDS SUMMARY | ~2019-03-23 | XMS | Encounter Summary ---
Demographics + + + | Address | [address] | | | [place] [address] | + + + | Home Phone [...] + + + | Author | [facility] | + + + | Organization | [facility] | + + + | Address | Unknown | + + + | Phone | Unavailable | + + + Support + + +---------+ + | Name | Relationship | Address | Phone | + + +---------+ + | Gerry Moreno | ECON | Unknown | | + + +---------+ + Care Team Providers + +------+ + | Care Brim Welt Sewing Machine Operator Name | Role | Phone [...] | CONSULT TO | Cory Garcia | [address] | | | | | ENT OTOLOGY | [place], [place] | Mailcode: | | | | | | [address] | [address] | | | | | | Phone: | Physician's | | | | | | [phone] | Pavilion | | | | | | Fax: | [place], [place] | | | | | | [phone] | [address] | | | | | | | Phone: | | | | | | | [phone] | | | | | | | Fax: | | | | | | | [phone] | +--------+--------+ + + + + Encounter [...] [address] | [facility] | Conductive hearing | | | | [facility] | [facility] [place] | loss, middle ear | | | | Mailcode: PV01 | [address] | | | | | Physician's Pedro | [phone] | | | | | [place], [place] | | | | | | [address] | | | | | | [phone] | | | +--------+---------+ + + + [...] of the num bers below or through [employer]. Your questions can best be answered during business hours at [phone], but you can always reach the [facility] mine motor operator at [phone] to contac t our on-call team. We look forward to taking care of you in the future. Dr. Ricky Garza MD, Director JYOTHI Villegas MA documented in this encounter Progress Notes Phoenix Garza MD - 05/21/2016 3:19 PM PDTFormatting of this note might be different f rom the original. Division of Otology, Neurotology, and Skull Base Surgery Department of Otolaryngology/Head and Neck Surgery [facility] Patient: Nu Moreno Referring Provider: Phoenix Bright [...] Program Department of Otolaryngology-Head and Neck Surgery [address], [address] [address] tel: [phone] fax: [phone] [email or web address] documented in this encounter Plan of Treatment Not on filedocumented as of this encounter Visit Diagnoses + + | Diagnosis | + + | Cerebrospinal fluid leak - Primary Other specified disorder of nervous system | + + | Conductive hearing loss, middle ear | + + documented in this encounter
--- OUTSIDE RECORDS SUMMARY | ~2019-03-23 | XMS | Encounter Summary ---
Demographics + + + | Address | [address] | | | [place] [address] | + + + | Home Phone [...] Author | [facility] | + + + | Organization | [facility] | + + + | Address | Unknown | + + + | Phone | Unavailable | + + + Support + + +---------+ + | Name | Relationship | Address | Phone | + + +---------+ + | Gerry Moreno | ECON | Unknown | | + + +---------+ + Care Team Providers + +------+ + | Care Welt Cutter Name | Role | Phone | + [...] + + | 05/16/ | Emergency | [facility] Emergency | | | | 2010 | | Department [address] | | | | | | [address] | | | | | | [facility] | | | | | | [place] [address] | | | | | | [phone] | | | +--------+ + + + [...]
--- OUTSIDE RECORDS SUMMARY | ~2019-03-23 | XMS | Encounter Summary ---
Demographics + + + | Address | [address] | | | [place] [address] | + + + | Home Phone | | + + + | Preferred Language | Unknown | + + + | Marital Status | | + + + | Anabaptism Affiliation | CAT | + + + [...] Providers + +------+ + | Care Assistant Producer Name | Role | Phone | [...] Description | +--------+--------+ + + + | 02/08/ | Refill | Otolaryngology | Phoenix Garza, | Refill Request | | 2016 | | Otology Services at | MD [address] | | | | | [facility] [address] | [facility] | | | | | [facility] | [place], [place] | | | | | Mailcode: [address]01 | [address] | | | | | PhysicianMoriahs Pedro | [phone] | | | | | [place], [place] | | | | | | [address] | | | | | | [phone] | | | +--------+--------+ + + + [...]
--- OUTSIDE RECORDS SUMMARY | ~2019-03-23 | XMS | Encounter Summary ---
Demographics + + + | Address | [address] | | | [place] [address] | + + + | Home Phone | | + + + | Preferred Language | Unknown | + + + | Marital Status | | + + + | Hindu Affiliation | CAT | + + + | Race | White | + + + | Ethnic Group | Not or | + + + Author + + + | Author | [facility] | + + + | Organization | [facility] | + + + | [...] | [facility] [address] | [facility] | | | | | [facility] | [place], [place] | | | | | Mailcode: PV01 | [address] | | | | | Physician's Pavilion | [phone] | | | | | [place], [place] | | | | | | [address] | | | | | | [phone] | | | +--------+ + + + [...]
--- OUTSIDE RECORDS SUMMARY | ~2019-03-23 | XMS | Encounter Summary ---
Demographics + + + | Address | [address] | | | [place] [address] | + + + | Home Phone | | + + + | Preferred Language | Unknown | + + + | Marital Status | | + + + | Orthodoxy Affiliation | CAT | + + + | Race | White | + + + | Ethnic Group | Not or | + + + Author + + + | Author | [facility] | + + + | Organization | [facility] | + + + | Address | Unknown | + + + | Phone | Unavailable | + + + Support + + +---------+ + | Name | Relationship | Address | Phone | + + +---------+ + | Gerry Moreno | ECON | Unknown | | + + +---------+ + Care Team Providers + +------+ + | Care Towing Pilot Name | Role | Phone | + [...] [facility] | | | | | [facility] | [address] [place] [address] | | | | | Mailcode: PV01 | [address] [place], [place] | | | | | Physician's [facility] | [address] | | | | | [place], [place] | | | | | | [address] | | | | | | [phone] | | | +--------+ + + + [...]
--- OUTSIDE RECORDS SUMMARY | ~2019-03-23 | XMS | Encounter Summary ---
Demographics + + + | Address | [address] | | | [place] [address] | + + + | Home Phone | | + + + | Preferred Language | Unknown | + + + | Marital Status | | + + + | Lutheran Affiliation | CAT | + + + | Race | White | + + + | Ethnic Group | Not or | + + + Author + + + | Author | [facility] | + + + | Organization | [facility] | + + + | Address | Unknown | + + + | Phone | Unavailable | + + + Support + + +---------+ + | Name | Relationship | Address | Phone | + + +---------+ + | Gerry Moreno | ECON | Unknown | | + + +---------+ + Care Team Providers + +------+ + | Care Orthopaedic Doctor Name | Role | Phone | + [...] [address] | [facility] | | | | | [facility] | [place], [place] | | | | | Mailcode: PV01 | [address] | | | | | PhysicianMoriahs Pedro | [phone] | | | | | [place], [place] | | | | | | [address] | | | | | | [phone] | | | +--------+--------+ + + + [...]
--- OUTSIDE RECORDS SUMMARY | ~2019-03-23 | XMS | Encounter Summary ---
Demographics + + + | Address | [address] | | | [place] [address] | + + + | Home Phone | | + + + | Preferred Language | Unknown | + + + | Marital Status | | + + + | Congregation Affiliation | CAT | + + + | Race | White | + + + | Ethnic Group | Not or | + + + Author + + + | Author | [facility] | + + + | Organization | [facility] | + + + | Address | Unknown | + + + | Phone | Unavailable | + + + Support + + +---------+ + | Name | Relationship | Address | Phone | + + +---------+ + | Gerry Moreno | ECON | Unknown | | + + +---------+ + Care Team Providers + +------+ + | Care Childcare Center Director Name | Role | Phone | + +------+ + PCP | Unavailable | + +------+ + Encounter Details +--------+ + + + + | Date | Type | Department | Care Team | Description | +--------+ + + + + | 10/12/ | Results | Neurosurgery [address] | Omar Pratt, | | | 2003 | Only | Franky eDmarco | | | | | | [facility] | | | | | | Mailcode:[id number] | | | | | | [address] | | | | | | [place], [place] | | | | | | [address] | | | | | | [phone] | | | +--------+ + + + [...] | BASIC METABOLIC SET | Routin | 10/15/2004 | | Results for this | | (NA, K, CL, TCO2, | e | 8:44 AM | | procedure are in the | | BUN, CR, GLU, CA) | | PST | | results section. | + +--------+ + + + | CBC ONLY | Routin | 10/15/2004 | | Results for this | | | e | 8:44 AM | | procedure are in the | | | | PST | | results section. | + +--------+ + + + | PHOSPHORUS, PLASMA | Routin | 10/15/2004 | | Results for this | | | e | 8:44 AM | | procedure are in the | | | | PST | | results section. | + +--------+ + + + | MAGNESIUM, PLASMA | Routin | 10/15/2004 | | Results for this | | | e | 8:44 AM | | procedure are in the | | | | PST | | results section. | + +--------+ + + + | CBC ONLY | Urgent | 10/14/2004 | | Results for this | | | | 5:20 AM | | procedure are in the | | | | PST | | results section. | + +--------+ + + + | CT HEAD WO CONTRAST | Urgent | 10/12/2004 | | Results for this | | | | 4:31 PM | | procedure are in the | | | | PST | | results section. | + +--------+ + + + | BASIC METABOLIC SET | Routin | 10/12/2004 | | Results for this | | (NA, K, CL, TCO2, | e | 2:00 PM | | procedure are in the | | BUN, CR, GLU, CA) | | PST | | results section. | + +--------+ + + + | CBC ONLY | Routin | 10/12/2004 | | Results for this | | | e | 2:00 PM | | procedure are in the | | | | PST | | results section. | + +--------+ + + + | BLOOD BANK PRODUCT | Routin | 10/12/2004 | | Results for this | | | e | 6:40 AM | | procedure are in the | | | | PST | | results section. | + +--------+ + + + | BLOOD BANK PRODUCT | Routin | 10/12/2004 | | Results for this | | | e | 6:40 AM | | procedure are in the | | | | PST | | results section. | + +--------+ + + + | TYPE AND SCREEN | Routin | 10/12/2004 | | Results for this | | | e | 6:40 AM | | procedure are in the | | | | PST | | results section. | + +--------+ + + + documented in this encounter Results CBC ONLY WITH PLATELET (10/15/2004 8:44 AM PST) + + + + + + | Component | Value | Ref Range | Performed | Pathologist | | | | | At | Signature | + + + + + + | WHITE CELL | 14.3 (H) | 4.4 - 11.0 K/cu | [facility] | | | COUNT | | mm | DEPARTMENT | | | | | | OF | | | | | | PATHOLOGY | | + + + + + + | RED CELL | 3.80 | 3.65 - 5.10 | [facility] | | | COUNT | | M/cu mm | DEPARTMENT | | | | | | OF | | | | | | PATHOLOGY | | + + + + + + | HEMOGLOBIN | 12.1 | 11.4 - 15.0 | [facility] | | | | | g/dL | DEPARTMENT | | | | | | OF | | | | | | PATHOLOGY | | + + + + + + | HEMATOCRIT | 36.2 | 33.0 - 44.6 % | [facility] | | | | | | DEPARTMENT | | | | | | OF | | | | | | PATHOLOGY | | + + + + + + | MCV | 95.3 | 80.0 - 96.0 fL | [facility] | | | | | | DEPARTMENT | | | | | | OF | | | | | | PATHOLOGY | | + + + + + + | MCH | 31.8 | 29.0 - 32.0 pg | [facility] | | | | | | DEPARTMENT | | | | | | OF | | | | | | PATHOLOGY | | + + + + + + | MCHC | 33.3 (L) | 33.4 - 35.5 | [facility] | | | | | g/dL | DEPARTMENT | | | | | | OF | | | | | | PATHOLOGY | | + + + + + + | RDW | 13.3 | 11.5 - 15.0 % | [facility] | | | | | | DEPARTMENT | | | | | | OF | | | | | | PATHOLOGY | | + + + + + + | PLATELET | 216 | 150 - 400 K/cu | [facility] | | | COUNT | | mm | DEPARTMENT | | | | | | OF | | | | | | PATHOLOGY | | + + + + + + | MPV | 9.3 | 7.4 - 10.4 fL | [facility] [...] | [facility] DEPARTMENT OF | [address] | [place] [address] | | | PATHOLOGY | [address] | | | + + + + + | [facility] DEPARTMENT | [address] | [place] [address] | | | PATHOLOGY | [address] | | | + + + + + BASIC METABOLIC SET (10/15/2004 8:44 AM PST) + +---------+ + + + [...] + + + | BUN, PLASMA | 13 | 6 - 20 mg/dL | [facility] [...] +---------+ + + + | SODIUM, | 137 | 136 - 145 | [facility] | [...] +---------+ + + + | CALCIUM, | 8.9 [...] | + + + + + | [facility] DEPARTMENT OF | [address] | [place] [address] | | | PATHOLOGY | [address] | | | + + + + + | [facility] DEPARTMENT OF | [address] | [place] [address] | | | PATHOLOGY | [address] | | | + + + + + PHOSPHORUS, PLASMA (10/15/2004 8:44 AM PST) + +---------+ + + + | Component | Value | Ref Range | Performed | Pathologist | | | | | At | Signature | + +---------+ + + + | PHOSPHORUS, | 1.8 (L) | 2.4 - 4.7 mg/dL | [facility] [...] | + + + + + | [facility] | [address] | [place] [address] | | | PATHOLOGY | [address] | | | + + + + + | [facility] | [facility] | [place] [address] | | | PATHOLOGY | [address] | | | + + + + + MAGNESIUM, PLASMA (10/15/2004 8:44 AM PST) + +-------+ + + + | Component | Value | Ref Range | Performed | Pathologist | | | | | At | Signature | + +-------+ + + + | MAGNESIUM,P | 2.3 | 1.8 - 2.5 mg/dL | [facility] | | | LASMA | | | [...] | + + + + + | [facility] DEPARTMENT OF | [address] | [place] [address] | | | PATHOLOGY | [address] | | | + + + + + | [facility] DEPARTMENT OF | [address] | [place] [address] | | | PATHOLOGY | [address] | | | + + + + + CBC ONLY WITH PLATELET (10/14/2004 5:20 AM PST) + + + + + + | Component | Value | Ref Range | Performed | Pathologist | | | | | At | Signature | + + + + + + | WHITE CELL | 13.7 (H) | 4.4 - 11.0 K/cu | [facility] | | | COUNT | | mm | DEPARTMENT | | | | | | OF | | | | | | PATHOLOGY | | + + + + + + | RED CELL | 3.62 (L) | 3.65 - 5.10 | [facility] | | | COUNT | | M/cu mm | DEPARTMENT | | | | | | OF | | | | | | PATHOLOGY | | + + + + + + | HEMOGLOBIN | 11.7 | 11.4 - 15.0 | [facility] | | | | | g/dL | DEPARTMENT | | | | | | OF | | | | | | PATHOLOGY | | + + + + + + | HEMATOCRIT | 34.2 | 33.0 - 44.6 % | [facility] | | | | | | DEPARTMENT | | | | | | OF | | | | | | PATHOLOGY | | + + + + + + | MCV | 94.5 | 80.0 - 96.0 fL | [facility] | | | | | | DEPARTMENT | | | | | | OF | | | | | | PATHOLOGY | | + + + + + + | MCH | 32.3 (H) | 29.0 - 32.0 pg | [facility] | | | | | | DEPARTMENT | | | | | | OF | | | | | | PATHOLOGY | | + + + + + + | MCHC | 34.2 | 33.4 - 35.5 | [facility] | | | | | g/dL | DEPARTMENT | | | | | | OF | | | | | | PATHOLOGY | | + + + + + + | RDW | 13.3 | 11.5 - 15.0 % | [facility] | | | | | | DEPARTMENT | | | | | | OF | | | | | | PATHOLOGY | | + + + + + + | PLATELET | 201 | 150 - 400 K/cu | [facility] | | | COUNT | | mm | DEPARTMENT | | | | | | OF | | | | | | PATHOLOGY | | + + + + + + | MPV | 8.9 | 7.4 - 10.4 fL | [facility] [...] | + + + + + | [facility] DEPARTMENT OF | [address] | [place] [address] | | | PATHOLOGY | [address] | | | + + + + + | [facility] DEPARTMENT OF | [address] | [place] [address] | | | PATHOLOGY | [address] | | | + + + + + CT HEAD WO CONTRAST (10/12/2004 4:31 PM PST) + + + + + + | Component | Value | Ref Range | Performed | Pathologist | | | | | At | Signature | + + + + + + | CT HEAD WO | Radiologist 1: OWEN, | | | | | CONTRAST | PAYTON Vazquez M.D.CT OF THE | | | | | | BRAIN WITH AND WITHOUT | | | | | | CONTRAST: 10/12/2004 | | | | | | Dictated 10/12/2004 | | | | | | REASON FOR | | | | | | EXAMINATION: Visual | | | | | | disturbance. | | | | | | PROCEDURE: Sagittal | | | | | | T1, coronal and axial T1 | | | | | | weighted images | | | | | | bothbefore and after | | | | | | gadolinium 3.5 cc of | | | | | | Omniscan. Axial | | | | | | proton density,axial | | | | | | FLAIR, coronal FLAIR, | | | | | | high resolution images, | | | | | | DWI axialsequence. | | | | | | COMPARISON: None. | | | | | | FINDINGS: Sagittal | | | | | | image reveals normal | | | | | | position of the | | | | | | cerebellartonsils, | | | | | | brainstem, and the other | | | | | | midline structures | | | | | | including thecorpus | | | | | | callosum. The FLAIR | | | | | | sequences reveal no | | | | | | signal | | | | | | abnormalitieseither in | | | | | | the optic nerve, optic | | | | | | chiasm, or throughout | | | | | | the | | | | | | intraaxialparenchyma. | | | | | | Likewise, T2 weighted | | | | | | fat saturated images do | | | | | | not revealany | | | | | | abnormalities in the | | | | | | orbit or | | | | | | brain. Following the | | | | | | injection ofcontrast | | | | | | agent, no abnormal areas | | | | | | of enhancement were | | | | | | identified. IMPRESSION: | | | | | | Negative MRI of the | | | | | | brain. END OF | | | | | | IMPRESSION: Addendum # | | | | | | 1 by Payton Garduno, | | | | | | M.D. on 14-Oct-2004 | | | | | | 13:54 | | | | | | DATE: 10/14/2004DICTA | | | | | | PATRICIA BY: Dr. Garduno | | | | | | Inadvertently this | | | | | | report on an MRI scan on | | | | | | a patient with the | | | | | | samename was attached to | | | | | | this accession | | | | | | number. The actual | | | | | | reading ofthe CT scan on | | | | | | ingrid Wilcox | | | | | | as follows: REASON FOR | | | | | | EXAMINATION: CT scan | | | | | | of the brain on patient | | | | | | who ispostop. | | | | | | PROCEDURE: The brain | | | | | | is scanned from the | | | | | | vertex to the skull base | | | | | | andviewed at 6 mm thick | | | | | | slices in both brain | | | | | | and bone algorithm. | | | | | | COMPARISON: Prior | | | | | | study 11/26/2002. | | | | | | FINDINGS: At this | | | | | | time, the patient has | | | | | | had surgery in left | | | | | | temporalregion which is | | | | | | acute, and there is air | | | | | | within and without | | | | | | thecranium. There is | | | | | | an old temporal fossa | | | | | | surgical site on the | | | | | | right.A small amount of | | | | | | pneumocephalus is seen | | | | | | anteriorly. The | | | | | | ventriclesare not | | | | | | enlarged. The sulci | | | | | | are visible. The | | | | | | hwang-white | | | | | | junctiondifferentiation | | | | | | is maintained with the | | | | | | exception of the left | | | | | | temporalfossa. There | | | | | | is a small amount of | | | | | | hemorrhage identified in | | | | | | thesurgical bed. A | | | | | | perimesencephalic | | | | | | cistern is | | | | | | obscured. A very | | | | | | smallamount of the | | | | | | superior cerebellar | | | | | | cistern is intact. | | | | | | IMPRESSION: | | | | | | 1. Evidence of old | | | | | | right temporal fossa | | | | | | surgery. 2. Acute | | | | | | postsurgical changes in | | | | | | the left temporal region | | | | | | with asmall amount of | | | | | | pneumocephalus and a | | | | | | small focus of | | | | | | hemorrhage in | | | | | | thesurgical bed. END | | | | | | OF IMPRESSION: | | | | + + + [...] +---------+ + + CBC ONLY WITH PLATELET (10/12/2004 2:00 PM PST) + +-------+ + + + | Component | Value | Ref Range | Performed | Pathologist | | | | | At | Signature | + +-------+ + + + | WHITE CELL | 9.5 | 4.4 - 11.0 K/cu | [facility] | | | COUNT | | mm | DEPARTMENT | | | | | | OF | | | | | | PATHOLOGY | | + +-------+ + + + | RED CELL | 4.09 | 3.65 - 5.10 | [facility] | | | COUNT | | M/cu mm | DEPARTMENT | | | | | | OF | | | | | | PATHOLOGY | | + +-------+ + + + | HEMOGLOBIN | 12.9 | 11.4 - 15.0 | [facility] | | | | | g/dL | DEPARTMENT | | | | | | OF | | | | | | PATHOLOGY | | + +-------+ + + + | HEMATOCRIT | 38.3 | 33.0 - 44.6 % | [facility] | | | | | | DEPARTMENT | | | | | | OF | | | | | | PATHOLOGY | | + +-------+ + + + | MCV | 93.5 | 80.0 - 96.0 fL | [facility] | | | | | | DEPARTMENT | | | | | | OF | | | | | | PATHOLOGY | | + +-------+ + + + | MCH | 31.5 | 29.0 - 32.0 pg | [facility] | | | | | | DEPARTMENT | | | | | | OF | | | | | | PATHOLOGY | | + +-------+ + + + | MCHC | 33.6 | 33.4 - 35.5 | [facility] | | | | | g/dL | DEPARTMENT | | | | | | OF | | | | | | PATHOLOGY | | + +-------+ + + + | RDW | 13.1 | 11.5 - 15.0 % | [facility] | | | | | | DEPARTMENT | | | | | | OF | | | | | | PATHOLOGY | | + +-------+ + + + | PLATELET | 230 | 150 - 400 K/cu | [facility] | | | COUNT | | mm | DEPARTMENT | | | | | | OF | | | | | | PATHOLOGY | | + +-------+ + + + | MPV | 9.1 | 7.4 - 10.4 fL | [facility] [...] | [facility] DEPARTMENT OF | [address] | [place] [address] | | | PATHOLOGY | [address] | | | + + + + + | [facility] DEPARTMENT OF | [address] | [place] [address] | | | PATHOLOGY | [address] | | | + + + + + BASIC METABOLIC SET (10/12/2004 2:00 PM PST) + +---------+ + + + | Component | Value | Ref Range | Performed | Pathologist | | | | | At | Signature | + +---------+ + + + | GLUCOSE, | 174 (H) | 65 - 110 mg/dL | [...] +---------+ + + + | CREATININE | 0.9 | 0.6 - 1.1 mg/dL | [facility] | | | PLASMA | | | DEPARTMENT | | | (LAB) | | | OF | | | | | | PATHOLOGY | | + +---------+ + + + | SODIUM, | 143 | 136 - 145 | [facility] | | | PLASMA | | mmol/L | DEPARTMENT | | | (LAB) | | | OF | | | | | | PATHOLOGY | | + +---------+ + + + | POTASSIUM, | 4.2 | 3.5 - 5.1 | [facility] | | | PLASMA | | mmol/L | DEPARTMENT | | | (LAB) | | | OF | | | | | | PATHOLOGY | | + +---------+ + + + | CHLORIDE, | 107 | 98 - 107 mmol/L | [facility] | | | PLASMA | | | DEPARTMENT | | | (LAB) | | | OF | | | | | | PATHOLOGY | | + +---------+ + + + | TOTAL CO2, | 23 | 23 - 29 mmol/L | [facility] | | | PLASMA | | | DEPARTMENT | | | (LAB) | | | OF | | | | | | PATHOLOGY | | + +---------+ + + + | CALCIUM, | 8.5 | 8.5 - 10.5 | [facility] | [...] | [facility] DEPARTMENT OF | [address] | [place] [address] | | | PATHOLOGY | [address] | | | + + + + + | [facility] DEPARTMENT OF | [address] | [place] [address] | | | PATHOLOGY | [address] | | | + + + + + BLOOD BANK PRODUCT (10/12/2004 6:40 AM PST) + + + + + + | Component | Value | Ref Range | Performed | Pathologist | | | | | At | Signature | + + + + + + | PRODUCT | RED CELL LEUKOREDUCED | | [facility] | | | DESCRIPTION | | | DEPARTMENT | | | | | | OF | | | | | | PATHOLOGY | | + + + + + + | PRODUCT | [id number] | | [facility] | | | UNIT # | | | DEPARTMENT | | | | | | OF | | | | | | PATHOLOGY | | + + + + + + | UNIT ABO | O | | [facility] | | | | | | DEPARTMENT | | | | | | OF | | | | | | PATHOLOGY | | + + + + + + | UNIT RH | POS | | [facility] | | | | | | DEPARTMENT | | | | | | OF | | | | | | PATHOLOGY | | + + + + + + | STATUS OF | Released | | [facility] | | | UNIT | | | DEPARTMENT | | | [...] | + + + + + | [facility] | [address] | [place] [address] | | | PATHOLOGY | [address] | | | + + + + + | [facility] | [address] | [place] [address] | | | PATHOLOGY | [address] | | | + + + + + TYPE AND SCREEN (10/12/2004 6:40 AM PST) + +-------+ + + + [...] Performed At | + + + | EXP 10/15/04 0700 | [facility] | | | DEPARTMENT OF | | | PATHOLOGY | + + + + + + + + | Performing | Address | City/State/Zipcode | Phone Number | | Organization | | | | + + + + + | [facility] DEPARTMENT | [address] | [place] [address] | | | PATHOLOGY | [address] | | | + + + + + | [facility] | [address] [place] [address] | [place] [address] | | | PATHOLOGY | [address] | | | + + + + + BLOOD BANK PRODUCT (10/12/2004 6:40 AM PST) + + + + + + | Component | Value | Ref Range | Performed | Pathologist | | | | | At | Signature | + + + + + + | PRODUCT | RED CELL LEUKOREDUCED | | [facility] | | | DESCRIPTION | | | DEPARTMENT | | | | | | OF | | | | | | PATHOLOGY | | + + + + + + | PRODUCT | [id number] | | [facility] | | | UNIT # | | | DEPARTMENT | | | | | | OF | | | | | | PATHOLOGY | | + + + + + + | UNIT ABO | O | | [facility] | | | | | | DEPARTMENT | | | | | | OF | | | | | | PATHOLOGY | | + + + + + + | UNIT RH | POS | | [facility] | | | | | | DEPARTMENT | | | | | | OF | | | | | | PATHOLOGY | | + + + + + + | STATUS OF | Released | | [facility] | | | UNIT | | | DEPARTMENT | | | [...] | [facility] DEPARTMENT OF | [address] | [place] [address] | | | PATHOLOGY | [address] | | | + + + + + | [facility] | [address] | [place] [address] | | | PATHOLOGY | [address] | | | + + + + + documented in this encounter Visit Diagnoses Not on filedocumented in this encounter"
--- OUTSIDE RECORDS SUMMARY | ~2019-03-23 | XMS | Encounter Summary ---
Demographics + + + | Address | [address] | | | [place] [address] | + + + | Home Phone | | + + + | Preferred Language | Unknown | + + + | Marital Status | | + + + | Baptist Affiliation | CAT | + + + [...] Team Providers + +------+ + | Care Marketing Production Coordinator Name | Role | Phone | + [...] | [facility] [address] | [facility] | | | | | [facility] | [place], [place] | | | | | Mailcode: PV01 | [id number] | | | | | PhysicianMoriahs Pedro | [phone] | | | | | [place], [place] | | | | | | [address] | | | | | | [phone] | | | +--------+--------+ + + + [...]
--- OUTSIDE RECORDS SUMMARY | ~2019-03-23 | XMS | Clinical Summary ---
Demographics + + + | Address | [address] | | | [place] [address] | + + + | Home Phone | | + + + | Preferred Language | Unknown | + + + | Marital Status | | + + + | Baptism Affiliation | CAT | + + + | Race | White | + + + | Ethnic Group | Not or | + + + Author + + + | Author | [facility] | + + + | Organization | [facility] | + + + | Address | Unknown | + + + | Phone | Unavailable | + + + Support + + +---------+ + | Name | Relationship | Address | Phone | + + +---------+ + | Gerry Moreno | ECON | Unknown | | + + +---------+ + Care Team Providers + +------+ + | Care Kennel Aide Name | Role | Phone | + +------+ + | Felicitas Candelario | PP | Unavailable | + +------+ + Source Comments SHELLIE is fully live on both [facility] and [facility] InPatient.[facility] Allergies + + + + + + | Active Allergy | Reactions | Severity | Noted | Comments | | | | | Date | | + + + + + + | Sulfa (Sulfonamide | | | 01/07/20 | | | Antibiotics) | | | 10 | | + + + + + + Medications + + + +---------+------+------+-------+ | Medication | Sig | Dispensed | Refills | Star | End | Statu | | | | | | t | Date | s | | | | | | Date | | | + + + +---------+------+------+-------+ | escitalopram | Take 10 mg by mouth | | 0 | | | Activ | | (LEXAPRO) 10 mg Oral | once daily. | | | | | e | | Tablet | | | | | | | + + + +---------+------+------+-------+ | Levothyroxine 75 | Take by mouth once | | 0 | | | Activ | | mcg Oral Capsule | daily. | | | | | e | + + + +---------+------+------+-------+ | VITAMIN D2 50,000 | | | 0 | 07/1 | | Activ | | unit oral capsule | | | | 5/20 | | e | | | | | | 16 | | | + + + +---------+------+------+-------+ | levothyroxine 88 | Take 88 mcg by mouth | | 0 | 04/0 | | Activ | | mcg oral tablet | once daily. | | | 20 | | e | | | | | | 12 | | | + + + +---------+------+------+-------+ | buPROPion SR 100 | Take 100 mg by mouth | | 0 | 07/2 | | Activ | | mg oral tablet | once daily. | | | 11/12 | | e | | extended release | | | | 16 | | | + + + +---------+------+------+-------+ | cyanocobalamin, | Place under tongue. | | 0 | | | Activ | | vitamin B-12, | | | | | | e | | (VITAMIN B-12) 5,000 | | | | | | | | mcg sublingual | | | | | | | | tablet, sublingual | | | | | | | + + + +---------+------+------+-------+ | DULOXETINE HCL | Take by mouth. | | 0 | | | Activ | | (CYMBALTA ORAL) | | | | | | e | + + + +---------+------+------+-------+ | GABAPENTIN ORAL | Take by mouth. | | 0 | | | Activ | | | | | | | | e | + + + +---------+------+------+-------+ | ACETAZOLAMIDE 125 | TAKE ONE TABLET BY | 30 | 3 | 12/23 | | Activ | | mg oral tablet | MOUTH ONCE DAILY | tablet | | 07/13 | | e | | | | | | 18 | | | + + + +---------+------+------+-------+ Active Problems + + + | Problem | Noted Date | + + + | Cerebrospinal fluid leak | 05/21/2016 | + + + | Conductive hearing loss, middle ear | 11/12/2005 | + + + Social History + +-------+ [...] + + + + | Temperature | 36.5 C (97.7 F) | 06/03/2011 11:05 AM | | | | | PDT | | + + + + + | Respiratory Rate | 25 | 06/03/2011 1:00 PM | | | | | PDT | | + + + + + | Oxygen Saturation | 99% | 06/03/2011 1:00 PM | | | | | PDT [...] | | + + + + + Plan of Treatment + + + + + | Health Maintenance | Due Date | Last Done | Comments | + + + + + | Pneumococcal | | | | | vaccination (1 of 2 | 2 | | | | - PCV13) | | | | + + + + + | Influenza (Flu) | | 07/24/2009 | | | vaccination (Season | 9 | | | | Ended) | | | | + + + + + Results Not on filefrom Last 3 Months Insurance + +--------+ +--------+ + +------+ | Payer | Benefi | Subscriber | Effect | Phone | Address | Type | | | t Plan | ID | haylee | | | | | | / | | Dates | | | | | | Group | | | | | | + +--------+ +--------+ + +------+ | [facility] | PHP | xxxxxxxxxxx | 01/23/20 | [id number] | [address] | PPO | | | [address] | | 16-Pre | 0 | [address] | | | [address] | | sent | | [place], | | | | [place] | | | | [place] [address] | | + +--------+ +--------+ + +------+ + +--------+ +--------+ + + | Guarantor Name | Accoun | Relation to | Date | Phone | Billing Address | | | t Type | Patient | of | | | | | | | | | | + +--------+ +--------+ + + | Nu Moreno | Person | Self | [birth year] | [address] | | | al/Lefty | | 1965 | [phone] | [place] [address] | | | [place] | | | [address] (Home) | | + +--------+ +--------+ + +
--- OUTSIDE RECORDS SUMMARY | ~2019-03-23 | XMS | Clinical Summary ---
Demographics + + + | Address | [address] | | | [place] [address] | + + + | Home Phone [...] Team Providers + +------+ + | Care Nurse Ldr Name | Role | Phone | + +------+ + | Felicitas Candelario | PP | Unavailable | + +------+ + Source Comments SHELLIE is fully live on both [facility] and [facility] Allergies + + + + + [...] | PHP | [id number] | 01/23/20 | [id number] | [address] | [address] | | | [facility] | | 16-[address] | [address] | | | | [address] | | sent | | [place], | | | | [place] | | | | [place] [address] | | + +--------+ +--------+ + +------+ [...] | 1965 | [phone] | [place] [address] | | | [place] | | | [place] (Home) | | + +--------+ +--------+ + +
--- OUTSIDE RECORDS SUMMARY | ~2019-03-23 | XMS | Encounter Summary ---
Demographics + + + | Address | [address] | | | [place] [address] | + + + | Home Phone | | + + + | Preferred Language | Unknown | + + + | Marital Status | | + + + | Temple Affiliation | CAT | + + + [...] Team Providers + +------+ + | Care Day Care Home Mother Name | Role | Phone | + [...] Description | +--------+--------+ + + + | 06/29/ | Refill | Otolaryngology | Phoenix Garza, | Refill Request | | 2016 | | Otology Services at | MD [address] | | | | | [facility] [address] | [facility] | | | | | [facility] | [place], [place] | | | | | Mailcode: PV01 | [phone] | | | | | PhysicianMoriahs Pedro | [phone] | | | | | [place], [place] | | | | | | [address] | | | | | | [phone] | | | +--------+--------+ + + + [...]
--- OUTSIDE RECORDS SUMMARY | ~2019-03-23 | XMS | Encounter Summary ---
Demographics + + + | Address | [address] | | | [place] [address] | + + + | Home Phone | | + + + | Preferred Language | Unknown | + + + | Marital Status | | + + + | Hindu Affiliation | CAT | + + + | Race | White | + + + | Ethnic Group | Not or | + + + Author + + + | Author | [facility] | + + + | Organization | [facility] | + + + | Address | Unknown | + + + | Phone | Unavailable | + + + Support + + +---------+ + | Name | Relationship | Address | Phone | + + +---------+ + | Gerry Moreno | ECON | Unknown | | + + +---------+ + Care Team Providers + +------+ + | Care Gathering Machine Feeder Name | Role | Phone | + [...] CSF leak | MD Jhoan | [address] [facility] [address] | | | | | Procedures | [facility] | [address] | | | | | X-RAY SPINAL | Otolaryngolo | Mailcode: | | | | | [facility] | [facility] | | | | | ASPIRATION | [address] | for Health | | | | | W/GUIDANCE | [address] | and Healing, | | | | | | [place], [place] | 3rd Floor | | | | | | [address] | [place], [place] | | | | | | Phone: | [phone] | | | | | | [phone] | Phone: | | | | | | Fax: | [phone] | | | | | | [phone] | Fax: | | | | | | | [phone] | +--------+--------+ + + + + Diagnostic [...] CSF leak | MD Jhoan | [address] | | | | | Procedures | [facility] | [address] | | | | | X-RAY SPINAL | Otolaryngolo | Mailcode: | | | | | [facility] | [facility] | | | | | ASPIRATION | [address] | for Health | | | | | W/GUIDANCE | [address] | and Healing, | | | | | | [place], [place] | 3rd Floor | | | | | | [address] | [place], [place] | | | | | | Phone: | [phone] | | | | | | [phone] | Phone: | | | | | | Fax: | [phone] | | | | | | | Fax: | | | | | | | [phone] | +--------+--------+ + + + + Reason for Visit AUTH/CERT (Routine) +--------+--------+ + + + + | Status | Reason | Specialty | Diagnoses / | Referred By | Referred To | | | | | Procedures | Contact | Contact | +--------+--------+ + + + + | Closed | | | | | | +--------+--------+ + + + + Encounter Details +--------+ + + + + | Date | Type | Department | Care Team | Description | +--------+ + + + + | 06/03/ | Hospital | [facility] [address] | Asher Laureano, | | | 2010 | Encounter | [address] | [address] [facility] | | | | | 11B [facility] | [facility] | | | | | [place] [address] | [place], [place] | | | | | [phone] | [address] | | | | | | [phone] | | | | | | | | | | | | Zaida Parr, | | | | | | [address] | | | | | | [facility] | | | | | | [place], [place] | | | | | | [address] | | | | | | [phone] | | | | | | | | | | | | Gerry Jeter MD | | | | | | [address] | | | | | | [place], | | | | | | [place] [address] | | | | | | [phone] | | | | | | | [...] + + + | Blood Pressure | 136/110 | 06/03/2011 1:00 PM | | | | | PDT | | + + + + + | Pulse | 53 | 06/03/2011 1:00 PM | | | [...] + + + + | Weight | 99.8 kg (220 lb) | 06/03/2011 7:00 AM | | | | | PDT | | + + + + + | Height | 162.6 cm (5' 4") | 06/03/2011 7:00 AM | | | | | PDT | | + + + + + | Body Mass Index | 37.76 | 06/03/2011 7:00 AM | | | | | PDT | | + + + + + documented in this encounter Medications at Time of Discharge + + + +---------+--------+ + | Medication | Sig | Dispensed | Refills | Start | End Date | | | | | | Date | | + + + +---------+--------+ + | escitalopram | Take 10 mg by mouth | | 0 | | | | (LEXAPRO) 10 mg Oral | once daily. | | | | | | Tablet | | | | | | + + + +---------+--------+ + | Levothyroxine 75 | Take by mouth once | | 0 | | | | mcg Oral Capsule | daily. | | | | | + + + +---------+--------+ + documented as of this encounter Plan of Treatment Not on filedocumented as of this encounter Procedures + +--------+ + + + | Procedure Name | Priori | Date/Time | Associated Diagnosis | Comments | | | ty | | | | + +--------+ + + + | PROCEDURE NOTE | Routin | 11/28/2015 | | Results for this | | | e | 5:55 AM | | procedure are in the | | | | PST | | results section. | + +--------+ + + + | NM ISOTOPE | Routin | 06/03/2011 | | Results for this | | ADMINISTRATION ONLY | e | 10:44 AM | | procedure are in the | | | | PDT | | results section. | + +--------+ + + + | X-RAY SPINAL TAP & | Routin | 06/03/2011 | CSF leak | Results for this | | ASPIRATION | e | 10:10 AM | | procedure are in the | | W/GUIDANCE | | PDT | | results section. | + +--------+ + + + | INR | Routin | 06/03/2011 | | Results for this | | | e | 7:23 AM | | procedure are in the | | | | PDT | | results section. | + +--------+ + + + | CBC ONLY | Routin | 06/03/2011 | | Results for this | | | e | 7:23 AM | | procedure are in the | | | | PDT | | results section. | + +--------+ + + + | ORDERS OTHER | | 06/03/2011 | | Results for this | | | | 12:00 AM | | procedure are in the | | | | PDT | | results section. | + +--------+ + + + documented in this encounter Results PROCEDURE NOTE (11/28/2015 5:55 AM PST) + + | Transcriptions | + + | Other, Faculty - 06/06/2011 11:53 AM PDT | + + NM ISOTOPE ADMINISTRATION (06/03/2011 10:44 AM PDT) + + + + + + | Component | Value | Ref Range | Performed | Pathologist | | | | | At | Signature | + + + + + + | NM ISOTOPE | Clinical history:Patient | | | | | ADMI | with history of | | | | | | bilateral CSF leaks and | | | | | | temporalencephalocele's, | | | | | [...] | + +---------+ + + CBC ONLY (06/03/2011 7:23 AM PDT) + + + + + + | Component | Value | Ref Range | Performed | Pathologist | | | | | At | Signature | + + + + + + | WHITE CELL | 6.8 | 4.4 - 11.0 K/cu | [facility] | | | COUNT | | mm | DEPARTMENT | | | | | | OF | | | | | | PATHOLOGY | | + + + + + + | RED CELL | 3.97 (L) | 4.00 - 5.20 | [facility] | | | COUNT | | M/cu mm | DEPARTMENT | | | | | | OF | | | | | | PATHOLOGY | | + + + + + + | HEMOGLOBIN | 13.1 | 12.0 - 16.0 | [facility] | | | | | g/dL | DEPARTMENT | | | | | | OF | | | | | | PATHOLOGY | | + + + + + + | HEMATOCRIT | 38.4 | 36.0 - 46.0 % | [facility] | | | | | | DEPARTMENT | | | | | | OF | | | | | | PATHOLOGY | | + + + + + + | MCV | 96.9 (H) | 80.0 - 96.0 fL | [facility] | | | | | | DEPARTMENT | | | | | | OF | | | | | | PATHOLOGY | | + + + + + + | MCHC | 34.0 | 33.4 - 35.5 | [facility] | [...] + + + + | PLATELET | 157 | 150 - 400 K/cu | [facility] | | | COUNT | | mm | DEPARTMENT | | | | | | OF | | | | | | PATHOLOGY | | + + + + + + + + | Specimen | + + | Blood - Blood | + + + + + + + | Performing | Address | City/State/Zipcode | Phone Number | | Organization | | | | + + + + + | [facility] DEPARTMENT | [address] | [place] [address] | | | PATHOLOGY | [address] | | | + + + + + INR (06/03/2011 7:23 AM PDT) + + + + + + | Component | Value | Ref Range | Performed | Pathologist | | | | | At | Signature | + + + + + + | INR | 1.05Comment: | 0.90 - 1.20 INR | [facility] | | | | INR | | DEPARTMENT | | | | Therapeutic ranges for | | OF | | | | full | | PATHOLOGY | | | | anticoagulation: | | | | | | INR for Venous | | | | | | Thromboembolism | | | | | | | | | | | | (2.0-3.0) | | | | | | INR INR for | | | | | | most patients with mech. | | | | | | | | | | | | valves (2.5-3.5) | | | | | | INR | | | | + + + + + + + + | Specimen | + + | Blood - Blood | + + + + + + + | Performing | Address | City/State/Zipcode | Phone Number | | Organization | | | | + + + + + | [facility] | [address] | [place] [address] | | | PATHOLOGY | [address] | | | + + + + + ORDERS OTHER (06/03/2011 12:00 AM PDT) + + + | Narrative | Performed At | + + + | | | + + + + + | Transcriptions | + + | Orin Morrissey - 06/17/2011 3:09 PM PDT | + + documented in this encounter Visit Diagnoses + + | Diagnosis | + + | CSF leak Other specified disorder of nervous system | + + documented in this encounter
--- OUTSIDE RECORDS SUMMARY | ~2019-03-23 | XMS | Encounter Summary ---
Demographics + + + | Address | [address] | | | [place] [address] | + + + | Home Phone [...] Providers + +------+ + | Care It Web Development Consultant Name | Role | Phone | + +------+ + | Felicitas Candelario | PCP | Unavailable | + +------+ + Reason for Visit + + + | Reason | Comments | + + + | Hearing examination | | + + + Consultation (Routine) +--------+--------+ + + + + | Status | Reason | Specialty | Diagnoses / | Referred By | Referred To | | | | | Procedures | Contact | Contact | +--------+--------+ + + + + | Closed | | Otolaryngolog | Diagnoses | Deangelo, | Ent Otology | | | | y | CSF leak | Phoenix Marley, | [facility] [address] | | | | | Procedures | MD [address] | [address] | | | | | CONSULT TO | Cory Garcia | [address] | | | | | ENT OTOLOGY | [place], [place] | Mailcode: | | | | | | [address] | [address] | | | | | | Phone: | Physician's | | | | | | [phone] | Pavilion | | | | | | Fax: | [place], [place] | | | | | | [phone] | [address] | | | | | | | Phone: | | | | | | | [phone] | | | | | | | Fax: | | | | | | | [phone] | +--------+--------+ + + + + Encounter Details +--------+ + + + + | Date | Type | Department | Care Team | Description | +--------+ + + + + | 05/21/ | Diagnostic | Otolaryngology | Miko Francis, | Hearing examination | | 2016 | Visit | Audiology Services | LUCAS Roy-A [address] | | | | | at [facility] [address] | [address] | | | | | [facility] | [place] [address] | | | | | Mailcode: [address] | [phone] | | | | | Physicianjess Vasquez | | | | | | [place], [place] | | | | | | [address] | | | | | | [phone] | | | +--------+ + + + [...] documented as of this encounter Progress Notes Elis Kelly - 05/21/2016 3:03 PM [facility] NAME: Nu Moreno Date of : 1965 MR#: [id number] Primary Care Provider: JYOTHI Mejía Referral Source: Phoenix Bright MD [address] [place] [address] Nelson: Loyda Date of Service: 05/21/2016 OTOLOGY CLINIC Nu Moreno, 50 y.o., was seen for a comprehensive audiological evaluation today as par t of Dr. Garza's otology clinic. Please see same day otology note for case history. Audiologic Results: Otoscopy Right: Clear canal and visible tympanic membrane Left: Clear canal and visible tympanic membrane Tympanometry Right: Normal ear canal volume (2.4mL), pressure (-55 daPa), and compliance (1.0 mL) Left: Slight negative pressure (-80 daPa), normal ear canal volume (1.9 mL) and compliance (0.5 mL) Acoustic Reflexes: Right: Absent ipsi and contra reflexes from 500Hz-4kHz Left: Ipsi reflexes absent from 500Hz-1kHz, present at 2k-4kHz. Contra reflexes absent fr om 500Hz-4kHz AUDIOMETRY (used to assess condition of hearing): Hayders hearing sensitivity was evaluated using insert earphones with conventional mark ometry. Nu conditioned easily to the task and her responses were consistent and consi dered reliable. Pure-tone air and bone conduction results revealed: Right Ear:A mild conductive hearing loss 250-1000 Hz, rising to borderline normal hearing at 2000 Hz, sloping to a moderate sensorineural hearing loss 4807-1169 Hz. A speech recept ion threshold was obtained at 25 dB HL and is in good agreement with responses to pure-tone stimuli. Word recognition ability was 100% when words were presented at a comfortable level of 96% dB HL, with contralateral masking in the opposite ear. Left Ear: A mild sensorineural hearing loss 250-2000 Hz sloping to a moderate sensorineur al hearing loss 7094-0660 Hz. A speech reheater helper threshold was obtained at 55 dB HL and is in good agreement with responses to pure-tone stimuli. Word recognition ability was 100% wh en words were presented at a comfortable level of 65 dB HL, with contralateral masking in th e opposite ear. Please see [facility] audiogram for details. Please see otology note for appointment detail including treatment/management and recommend ations. [facility] Christensen Audiology Nursery Teacher Manuela Shetty CCC-A documented in thi s encounter Plan of Treatment Not on filedocumented as of this encounter Procedures + +--------+ + + + | Procedure Name | Priori | Date/Time | Associated Diagnosis | Comments | | | ty | | | | + +--------+ + + + | CT | Routin | 05/28/2016 | Mixed hearing loss | | | TYMPANOMETRY&REFLEX | e | 9:13 AM | | | | THRESH | | PDT | | | + +--------+ + + + | CT COMPREHENSIVE | Routin | 05/28/2016 | Mixed hearing loss | | | HEARING TEST | e | 9:13 AM | | | | | | PDT | | | + +--------+ + + + documented in this encounter Visit Diagnoses + + | Diagnosis | + + | Mixed hearing loss - Primary Mixed hearing loss, unspecified | + + documented in this encounter"
--- OUTSIDE RECORDS SUMMARY | ~2019-03-23 | XMS | Encounter Summary ---
Demographics + + + | Address | [address] | | | [place] [address] | + + + | Home Phone [...] Team Providers + +------+ + | Care Alpine Guide Name | Role | Phone | + +------+ + PCP | Unavailable | + +------+ + Encounter Details +--------+ + + + + | Date | Type | Department | Care Team | Description | +--------+ + + + + | 12/14/ | Office | | Note, Outpatient | [...] as of this encounter Progress Notes Interface, Air Sampling And Monitoring In - 05/01/2006 3:02 AM PDTCLINIC DATE: 12/14/2002 OTOLARYNGOLOGY CLINIC Ms. 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 This was obliterated using bone and hydroxyapatite cement. The patient denies any new problems. She has been experiencing some small amount of pain around the incision. Overall, no real difficulty. She indicates she saw some decreased hearing in that ear but this is much better. She is not having as much fluid as before. OBJECTIVE GENERAL: Ms. Moreno appeared well. She was in no acute distress. HEENT: Examination of the face revealed no facial weakness. It was normal bilaterally. She had House Brackman grade 1 on the both sides. The right ear was examined. The incision was healing well. There was still some residual sutures that were taken out from the skin. The external auditory canal is examined under the high-powered operating microscope. This revealed some bloody crusting in the external canal. Tympanic membrane was intact. There was no evidence of effusion. 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 The patient is doing very well. No evidence of recurrent CSF leak. Overall healing excellently. We will have her return to clinic in [address] Benton. Shant Kelley M.D. Jhoan Benton M.D., F.A.C.S. [facility] / [id number] / [id number] / [id number] / [id number] Tdocumented in this encounter Plan of Treatment Not on filedocumented as of this encounter Visit Diagnoses Not on filedocumented in this encounter"
--- OUTSIDE RECORDS SUMMARY | ~2019-03-23 | XMS | Encounter Summary ---
Demographics + + + | Address | [address] | | | [place] [address] | + + + | Home Phone [...] Team Providers + +------+ + | Care Metrology Manager Name | Role | Phone | + +------+ + PCP | Unavailable | + +------+ + Encounter Details +--------+ + + + + | Date | Type | Department | Care Team | Description | +--------+ + + + + | 10/12/ | Office | | Note, Outpatient | [...] as of this encounter Progress Notes Interface, Sponge Hooker In - 05/24/2006 1:07 AM PDTCLINIC DATE: 10/12/2002 OTOLARYNGOLOGY CLINIC SUBJECTIVE: Ms. Moreno returns today for continued care. Her films were reviewed with Dr. Sailaja Colon who felt that there were two possible locations for her CSF leak. She noted an area in the middle fossa overlying the right tegmen that was suggestive of an arachnoid granulation. She felt that this was the most likely site of the leak. She was less impressed by the changes noted in the posterior fossa sigmoid sinus area. Nevertheless, she recommended that a CT cysternogram be obtained. This procedure was done today, and the results were reviewed over the phone with Dr. Salguero. Apparently, there was no obvious leakage of contrast into the middle ear. He did feel, however, that there may be a bony defect of the tegmen overlying the aditus region. The patient reports that she has had no fevers, headache, neck pain, or photophobia. ASSESSMENT: Right cerebral spinal fluid leak of unclear etiology and site. PLAN: The patient will require exploratory surgery to repair any sites of CSF leakage. This will involve a right middle fossa craniotomy and mastoidectomy. Any bony defects that are encountered will be repaired with a combination of bone graft, fascia, and fibrin glue. Dural repair will also be necessary. She will return to clinic on the day of her preoperative appointment. Mike Nix M.D. [facility] / [id number] / [id number] / [id number] / Tdocumented in this encounter Plan of Treatment Not on filedocumented as of this encounter Visit Diagnoses Not on filedocumented in this encounter"
--- OUTSIDE RECORDS SUMMARY | ~2019-03-23 | XMS | Encounter Summary ---
Demographics + + + | Address | [address] | | | [place] [address] | + + + | Home Phone | | + + + | Preferred Language | Unknown | + + + | Marital Status | | + + + | Mormon Affiliation | CAT | + + + [...] Team Providers + +------+ + | Care Form Coverer Name | Role | Phone | + [...] [facility] [address] | [facility] | | | | | [facility] | [place], [place] | | | | | Mailcode: [address] | [address] | | | | | PhysicianMoriahs Pedro | [phone] | | | | | [place], [place] | | | | | | [address] | | | | | | [phone] | | | +--------+--------+ + + + [...]
--- OUTSIDE RECORDS SUMMARY | ~2019-03-23 | XMS | Encounter Summary ---
Demographics + + + | Address | [address] | | | [place] [address] | + + + | Home Phone [...] Providers + +------+ + | Care Manager Business Planning Name | Role | Phone | + +------+ + | Samy Carlos DO | PCP | Unavailable | + +------+ + Reason for Referral Consultation (Routine) +--------+--------+ + + + + [...] | CONSULT TO | Cory Garcia | [address] | | | | | ENT OTOLOGY | [facility] [place] | Mailcode: | | | | | | [address] | [address] | | | | | | Phone: | Physician's | | | | | | [phone] | Pavilion | | | | | | Fax: | [place], [place] | | | | | | [phone] | [address] | | | | | | | Phone: | | | | | | | [phone] | | | | | | | Fax: | | | | | | | [phone] | +--------+--------+ + + + + Reason for Visit + + + | Reason | Comments | + + + | New Patient Visit | | + + + Consultation (Routine) +--------+--------+ + + + + | Status | Reason | Specialty | Diagnoses / | Referred By | Referred To | | | | | Procedures | Contact | Contact | +--------+--------+ + + + + | Closed | | Otolaryngolog | Diagnoses | Rohit, | Deangelo, | | | | y | delta, | MD Nicko | Phoenix Marley MD | | | | | second | [address] | [address] | | | | | opionion for | [address] | [address] | | | | | sx, cfs | Sergio, | [place], [place] | | | | | leak | [place] [address] | [address] | | | | | | Phone: | Phone: | | | | | | [phone] | [phone] | | | | | | Fax: | Fax: | | | | | | [phone] | [phone] | +--------+--------+ + + + + Encounter Details +--------+---------+ + + + | Date | Type | Department | Care Team | Description | +--------+---------+ + + + | 03/02/ | Office | [facility] | Phoenix Bright, | CSF leak (Primary | | 2015 | Visit | Center at [facility] [address] | MD [address] | Dx); Chronic | | | | [address] | [place], [place] | ethmoidal sinusitis; | | | | Code: [facility] | [address] | Chronic maxillary | | | | for Health and | [phone] | sinusitis; | | | | Healing, 5th Floor | | Cerebrospinal fluid | | | | [place], [place] | | rhinorrhea | | | | [address] | | | | | | [phone] | | | +--------+---------+ + + + [...] documented as of this encounter Progress Notes Phoenix Bright MD - 03/02/2016 1:09 PM PDTFormatting of this note might be different fr om the original. [facility] HPI: Nu Moreno is a 50 y.o. female who presents to the [facility] for Chronic rhinosinusitis and CSF leak. Current symptoms include rhinorrhea. Sympt oms began many months ago. Symptom severity is mild. Improvement occurred with Nothing. A dditional evaluation has included glucose testing suggestive of CSF leak.. ESS 3-4 years ago. There were no complications associated with this and no known CSF leak at the time of surgery History of CSF leak repair by Dr. Singleton and Sangeeta Bajwa in the temporal bones bilaterall y. These were accompanied with some pulsatile tinnitus which has returned in the last severa l weeks. Interestingly, it has returned on the right side. Current Outpatient Prescriptions Medication Sig alprazolam 0.5 mg Oral Tablet Take 0.5 mg by mouth three times daily. alprazolam 1 mg Oral Tablet Take 1 mg by mouth three times daily. ALPRAZolam 2 mg Oral Tablet Take 2 mg by mouth once daily. citalopram 40 mg Oral Tablet Take 40 mg by mouth once daily. cloNIDine 0.1 mg Oral Tablet Take 0.1 mg by mouth two times daily. escitalopram (LEXAPRO) 10 mg Oral Tablet Take 10 mg by mouth once daily. HYDROcodone-acetaminophen (VICODIN) 5-500 mg Oral Tablet Take 1 Tab by mouth every four hours as needed. Not to exceed 8 tablets per any 24 hour period. (Not to exceed 4000 mg of acetaminophen from all products per 24 hour period.) Levothyroxine 75 mcg Oral Capsule Take by mouth once daily. The patient's New Patient History Form was reviewed with the patient. Changes and addition s, where necessary, were made and the form was scanned to the medical record. Comprehensive review of systems was negative other than as documented on this note and on the New Patient History Form. Data Review: ? Other records are reviewed, including office visit notes, and other relevant diagnostic imaging and laboratory study results. ? I reviewed the images myself (Phoenix Bright MD) No past medical history on file. History reviewed. No pertinent past surgical history. History Substance Use Topics Smoking status: Never Smoker Smokeless tobacco: Never Used Alcohol Use: Not on file Allergies: Allergies Allergen Reactions Sulfa (Sulfonamide Antibiotics) PHYSICAL EXAM: General Appearance: Pleasant, well-developed, well-nourished patient, in no apparent distre ss. Mental status normal. Breathing quietly, comfortably, no stridor or wheezing. Head/Face: No skin lesions, face symmetric, sensation normal Eyes: EOMI Ears: External ears normal to inspection and palpation, canals clear, TM's intact, RIGHT mi ddle ear effusion. Nose: Anterior rhinoscopy reveals mucosal edema and evidence of prior surgery. Nasal endosc opy was indicated to better evaluate the nose and paranasal sinuses given the patient's hist ory and exam findings and is detailed below. Oral Cavity/Pharynx: No masses or lesions of lips, gums, tongue, floor of mouth, buccal muc alize, hard palate or soft palate. Dentition is good. No erythema, exudate, or tonsillar jadon s. Posterior pharyngeal wall normal. Neck/Lymphatic: no masses or adenopathy and no salivary or thyroid masses Neurologic: CN 2-12 intact PROCEDURE: Diagnostic Nasal Endoscopy Anesthesia: Lidocaine 4% topical anesthetic was placed. Description of Procedure: A rigid endoscope was utilized to evaluate the sinonasal cavities , mucosa, sinus ostia and turbinates. Overall, signs of mucosal inflammation are noted. Al so noted are mucosal edema and evidence of prior surgery. RADIOGRAPHIC EVALUATION: CT scan reveals evidence of a bony defect in the roof of the ethmo id on the right side. This appears to be only a few millimeters in its greatest dimension. T here is some underlying soft tissue in this area. There is evidence of prior extensive sinus surgery. There is some mucosal inflammatory disease remaining. ASSESSMENT: Chronic rhinosinusitis and history of temporal bone CSF leaks with a current solis spicion of right-sided CSF leak and a right ethmoid skull base defect. She has recent return of right-sided pulsatile tinnitus which was associated with her prior right temporal bone C SF leak. She also have this evidence of an effusion on the right side. It is possible that her CSF leak is emanating from somewhere in the right temporal bone rat her than from the obvious defect in the right ethmoid region. It is possible that she is col lecting CSF within the right middle ear space which appears today as an effusion. Perhaps so me of this is draining down the eustachian tube and draining from her right nares. That david d, I do not see an effusion in her right middle ear space on her most recent CT scan but I d o see a clinical effusion today. I would like for her to see Dr. Garza and neurotology to evaluate Dr. Jha these prio r surgery and to determine if he believes she has an ongoing temporal bone CSF leak. I've also asked the patient to attempt to collect some of the fluid so that we can send it for beta-2 transferrin testing. I have placed in order for her to see Dr. Garza in the clinic and I will call her by phone to discuss what I've learned from review of her chart and radiographic information. documented in this e ncounter Plan of Treatment Not on filedocumented as of this encounter Procedures + +--------+ + + + | Procedure Name | Priori | Date/Time | Associated Diagnosis | Comments | | | ty | | | | + +--------+ + + + | [facility] NASAL | Routin | 03/03/2016 | Chronic ethmoidal | | | ENDOSCOPY,DX | e | 9:00 AM | sinusitis Chronic | | | | | PDT | maxillary sinusitis | | | | | | Cerebrospinal fluid | | | | | | rhinorrhea | | + +--------+ + + + documented in this encounter Visit Diagnoses + + | Diagnosis | + + | CSF leak - Primary Other specified disorder of nervous system | + + | Chronic ethmoidal sinusitis | + + | Chronic maxillary sinusitis | + + | Cerebrospinal fluid rhinorrhea | + + documented in this encounter"
--- OUTSIDE RECORDS SUMMARY | ~2019-03-23 | XMS | Encounter Summary ---
Demographics + + + | Address | [address] | | | [place] [address] | + + + | Home Phone | | + + + | Preferred Language | Unknown | + + + | Marital Status | | + + + | Hinduism Affiliation | CAT | + + + [...] Team Providers + +------+ + | Care Morning Babysitter Name | Role | Phone | + [...] [facility] | | | | | [facility] | [place], [place] | | | | | Mailcode: [address] | [address] | | | | | [facility] | [phone] | | | | | [place], [place] | | | | | | [address] | | | | | | [phone] | | | +--------+--------+ + + + [...]
--- OUTSIDE RECORDS SUMMARY | ~2019-03-23 | XMS | Encounter Summary ---
Demographics + + + | Address | [address] | | | [place] [address] | + + + | Home Phone [...] Team Providers + +------+ + | Care Commodity Buyer Name | Role | Phone | + +------+ + PCP | Unavailable | + +------+ + Encounter Details +--------+ + + + + | Date | Type | Department | Care Team | Description | +--------+ + + + + | 10/12/ | Orders Only | | Record, Skull Base | | | 2004 | | | Operation | | +--------+ + + + + [...] + + | OPERATIVE REPORT | | 10/12/2004 | | | | SKULL BASE | | | | | + +--------+ + + + documented in this encounter Visit Diagnoses Not on filedocumented in this encounter"
--- OUTSIDE RECORDS SUMMARY | ~2019-03-23 | XMS | Encounter Summary ---
Demographics + + + | Address | [address] | | | [place] [address] | + + + | Home Phone | | + + + | Preferred Language | Unknown | + + + | Marital Status | | + + + | Confucianist Affiliation | CAT | + + + | Race | White | + + + | Ethnic Group | Not or | + + + Author + + + | Author | [facility] | + + + | Organization | [facility] | + + + | Address | Unknown | + + + | Phone | Unavailable | + + + Support + + +---------+ + | Name | Relationship | Address | Phone | + + +---------+ + | Gerry Moreno | ECON | Unknown | | + + +---------+ + Care Team Providers + +------+ + | Care Bisque Ware Dipper Name | Role | Phone | + +------+ + | Samy Carlos DO | PCP | Unavailable | + +------+ + Reason for Visit +--------+ + | Reason | Comments | +--------+ + | Other | 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.]
--- OUTSIDE RECORDS SUMMARY | ~2019-03-23 | XMS | Encounter Summary ---
Demographics + + + | Address | [address] | | | [place] [address] | + + + | Home Phone | | + + + | Preferred Language | Unknown | + + + | Marital Status | | + + + | Mormonism Affiliation | CAT | + + + | Race | White | + + + | Ethnic Group | Not or | + + + Author + + + | Author | [facility] | + + + | Organization | [facility] | + + + | Address | Unknown | + + + | Phone | Unavailable | + + + Support + + +---------+ + | Name | Relationship | Address | Phone | + + +---------+ + | Gerry Moreno | ECON | Unknown | | + + +---------+ + Care Team Providers + +------+ + | Care Body Wirer Name | Role | Phone | + +------+ + PCP | Unavailable | + +------+ + Reason for Visit + + + | Reason | Comments | + + + | Lab Results | Had MRI done in [facility], has report, office also sending disc | [...] at | MD AREVALO | done in [facility], | | | | [facility] [address] | [facility] | has report, office | | | | [facility] | [address] [place] [address] [address] | also sending disc | | | | Mailcode: [address] | [address] [place], [place] | and report. Set up | | | | [facility] | [phone] | f/u appt, but would | | | | [place], [place] | (Fax) | also like someone to | | | | [address] | | call and explain | | | | [phone] | | the report to her, | [...]
--- OUTSIDE RECORDS SUMMARY | ~2019-03-23 | XMS | Encounter Summary ---
Demographics + + + | Address | [address] | | | [place] [address] | + + + | Home Phone [...] + + | Author | [facility] | + + + | Organization | [facility] | + + + | Address | Unknown | + + + | Phone | Unavailable | + + + Support + + +---------+ + | Name | Relationship | Address | Phone | + + +---------+ + | Gerry Moreno | ECON | Unknown | | + + +---------+ + Care Team Providers + +------+ + | Care Compliance Nurse Name | Role | Phone | + [...] Assoc | results, | | | | [facility] | [address] | | | | | Mailcode: [address] | [address] [place], [place] | reviewed scans) | | | | [facility] | [address] | | | | | [place], [place] | (Fax) | | | | | [address] | | | | | | [phone] | | | +--------+ + + + [...]
--- OUTSIDE RECORDS SUMMARY | ~2019-03-23 | XMS | Encounter Summary ---
Demographics + + + | Address | [address] | | | [place] [address] | + + + | Home Phone | | + + + | Preferred Language | Unknown | + + + | Marital Status | | + + + | Alevism Affiliation | CAT | + + + | Race | White | + + + | Ethnic Group | Not or | + + + Author + + + | Author | [facility] | + + + | Organization | [facility] | + + + | Address | Unknown | + + + | Phone | Unavailable | + + + Support + + +---------+ + | Name | Relationship | Address | Phone | + + +---------+ + | Gerry Moreno | ECON | Unknown | | + + +---------+ + Care Team Providers + +------+ + | Care Frame Nailer Name | Role | Phone | + [...] | | | | | [facility] | [place], [place] | Mailcode: | | | | | [place] | [address] | [address] [facility] | | | | | [address] [place] | Phone: | Hospital | | | | | [address] | [phone] | [place], [place] | | | | | SCAN,ORBIT/S | Fax: | [address] | | | | | BELINDA/POST | [phone] | Phone: | | | | | FOSSA/EAR,W/ | | [phone] | | | | | [place] | | Fax: | | | | | | | [phone] | +--------+--------+ + + + + Reason for Visit + + + | Reason | Comments | + + + | Ear problem | here for ear check | + + + Benefits Check (Routine) +--------+--------+ + + + + | Status | Reason | Specialty | Diagnoses / | Referred By | Referred To | | | | | Procedures | Contact | Contact | +--------+--------+ + + + + | Closed | | Otolaryngolog | | Deangelo, | Ent Otology | | | | y | | Phoenix Marley, | [facility] [address] | | | | | | MD [address] | | | | | | [address] | [address] | | | | | | [place], [place] | Mailcode: | | | | | | [address] | [address] | | | | | | Phone: | Physician's | | | | | | [phone] | Pavilion | | | | | | Fax: | [place], [place] | | | | | | [phone] | [address] | | | | | | | Phone: | | | | | | | [phone] | | | | | | | Fax: | | | | | | | [phone] | +--------+--------+ + + + + Encounter Details +--------+---------+ + + + | Date | Type | Department | Care Team | Description | +--------+---------+ + + + | 04/11/ | Office | Otolaryngology | Phoenix Garza, | CSF otorrhea | | 2017 | Visit | Otology Services at | [address] | (Primary Dx) | | | | [facility] [address] | [facility] | | | | | [facility] | [place], [place] | | | | | Mailcode: [address] | [address] | | | | | [facility] | [phone] | | | | | [place], [place] | | | | | | [address] | | | | | | [phone] | | | +--------+---------+ + + + [...] of this encounter Patient Instructions Patient Instructions Ernesto Kat - 04/11/2017 3:45 PM PDTThank you so much for seeking ca re in the Division of Otology, Neurotology, and Skull Base Surgery. We hope we have been ab le to help you. Obtain a CT scan at your convenience. Take Zyrtec or generic brand every day for the next month. Call us in a month to discuss further options. If you have any questions about your care, please feel free to contact me at one of the num bers below or through [employer]. Your questions can best be answered during business hours at [phone], but you can always reach the [facility] electric power machine operator at [phone] to contac t our on-call team. We look forward to taking care of you in the future. Ricky Garza MD, Director MD Antonietta Rios MD Sarah Liebler, PA Schnea Richardson, MA documented in this encounter Progress Notes Phoenix Garza MD - 04/11/2017 3:45 PM PDTFormatting of this note might be different f rom the original. Division of Otology, Neurotology, and Skull Base Surgery Department of Otolaryngology/Head and Neck Surgery [facility] Patient: Nu Moreno Referring Provider: Phoenix Bright MD Author: Phoenix Garza MD Consultation Date: 04/11/2017 REASON FOR VISIT: Nasal drainage. HISTORY OF PRESENT ILLNESS: Nu Moreno is a 51 y.o. female referred today regarding bi lateral nasal drainage which is worse on the right. She states the drainage happens after sl eeping or after laying on the couch, but doesn't happen during the day. She also states the drainage smells metallic. The drainage is usually only a few drops. She also complains of ri ght aural fullness, and pain associated with the muscles in her neck. She continues to take acetazolamide regularly with improvement. Of note, she does have mild allergies and has been tested. PAST MEDICAL HISTORY: No past medical history on file. PAST SURGICAL HISTORY: No past surgical history on file. ALLERGIES: Allergies Allergen Reactions Sulfa (Sulfonamide Antibiotics) MEDICATIONS: ACETAZOLAMIDE 125 mg oral tablet, TAKE ONE TABLET BY MOUTH ONCE DAILY buPROPion SR 100 mg oral tablet extended [...] daily. VITAMIN D2 50,000 unit oral capsule, FAMILY HISTORY: Family History none SOCIAL HISTORY: Social History Substance Use Topics Smoking status: Never Smoker Smokeless tobacco: Never Used Alcohol use None REVIEW OF SYSTEMS: A full 10 [...] Ears: Examined under binocular microscopic visualization. Left: No fluid behind ear drum. Normal external auditory canal and drum. Normal aerated middle ear. Right: Monomeric area inferiorly. No fluid behind ear drum. Normal external auditory melania l and drum. Normal aerated middle ear. Nose: No external nasal deformity. Neck: No adenopathy or masses. Normal range of motion. Respiratory: Unlabored. No cyanosis. Cardiovascular: Normal perfusion. No edema. Musculoskeletal: Normal muscle mass. Normal gait. Skin: No suspicious skin lesions noted on scalp, face, ears, or neck. Neuro: Normal gait. Cranial nerves: II, III, IV, : Normal range of movement. No nystagmus. X: Voice grossly normal. XI: Shoulder motion normal. XII: Tongue motion normal. Psychiatric: Alert and oriented. Normal affect. ASSESSMENT: 1- 51 y.o. female presents with nasal drainage PLAN: 1- Will obtain a CT scan. Depending on the results will pursue surgery or surveillance. 2- Will have the patient take Zyrtec everyday for a month (Added in editing: CT scan clear for fluid in the mastoid. I do not see a need for surgic al intervention at this time. Recommend continuing current management.) I, Ernesto Kat, am functioning as a scribe for Dr. Phoenix Garza MD. I have reviewed and verified the above scribed note of my visit with this patient as record ed by my scribe as named above. Phoenix Garza MD Director, Division of Otology, Neurotology, and Skull Base Surgery Director, Cochlear Implant Program Department of Otolaryngology-Head and Neck Surgery [address] [address] tel: [phone] fax: [phone] [email or web address] documented in this encounter Plan of Treatment Not on filedocumented as of this encounter Procedures + +--------+ + + + | Procedure Name | Priori | Date/Time | Associated Diagnosis | Comments | | | ty | | | | + +--------+ + + + | LA EAR MICROSCOPY | Routin | 04/11/2017 | CSF otorrhea | | | EXAMINATION | e | 3:33 PM | | | | | | PDT [...] + + | Performing | Address | City[facility] Phone Number | | Organization | | | | + +---------+ + + | [facility] | | | | | VOICE RECOGNITION | | | | + +---------+ + + documented in this encounter Visit Diagnoses + + | Diagnosis | + + | CSF otorrhea - Primary Cerebrospinal fluid otorrhea | + + documented in this encounter"
--- OUTSIDE RECORDS SUMMARY | ~2019-03-23 | XMS | Encounter Summary ---
Demographics + + + | Address | [address] | | | [place] [address] | + + + | Home Phone [...] Author + + + | Author | [facility] | + + + | Organization | [facility] | + + + | Address | Unknown | + + + | Phone | Unavailable | + + + Support + + +---------+ + | Name | Relationship | Address | Phone | + + +---------+ + | Gerry Moreno | ECON | Unknown | | + + +---------+ + Care Team Providers + +------+ + | Care Glove Parts Inspector Name | Role | Phone | + [...] [address] | | | | | | [facility] | | | | | | [place], [place] | | | | | | [address] | | | +--------+ + + + [...] | + + | 10/13/2004 10:48 AM [facility] Anesthesia PostOp Report | | | | Patient: NU MORENO [facility] Rec: [id number] Sex F Bdate: 1965 | | Date/Time Data | | Entered Into [facility] | | Anesth PostOp | | Surgery Date [id number] 10/13/04 10:48 | | [id number] 11/27/02 11:06 | | Anesthesiologist Ayaka JORGE 10/13/04 10:48 | | HEATHER MERAZ 11/27/02 11:06 | | Resident Anesthesiolog LUANNE FUENTES 10/13/04 10:48 | | GEE LIVINGSTON 11/27/02 11:06 | | | + + documented in this encounter Visit Diagnoses Not on filedocumented in this encounter"
--- OUTSIDE RECORDS SUMMARY | ~2019-03-23 | XMS | Encounter Summary ---
Demographics + + + | Address | [address] | | | [place] [address] | + + + | Home Phone [...] Team Providers + +------+ + | Care Virtual Classroom Manager Name | Role | Phone | + +------+ + PCP | Unavailable | + +------+ + Encounter Details +--------+ + + + + | Date | Type | Department | Care Team | Description | +--------+ + + + + | 10/12/ | Results | Neurosurgery [address] | Omar Pratt, | | | 2003 | Only | [address] | | | | | | [facility] | | | | | | Mailcode:OP14B | | | | | | [place] | | | | | | [place], [place] | | | | | | [address] | | | | | | [phone] | | | +--------+ + + + [...] DEPARTMENT OF | [address] | [address] | | | PATHOLOGY | [address] | | | + + + + + | [place] DEPARTMENT | [address] | [address] | | | PATHOLOGY | [address] [...] + + + + + | [facility] DEPARTMENT OF | [address] | [place] [address] | | | PATHOLOGY | [address] | | | + + + + + | [place] DEPARTMENT OF | [address] | [place] [address] | | | PATHOLOGY | [address] [...] | + + + + + | [facility] | [address] | [place] [address] | | | PATHOLOGY | [address] | | | + + + + + | [facility] | [facility] | [place] [address] | | | PATHOLOGY | [address] [...] + | [place] DEPARTMENT OF | [address] | [place] [address] | | | PATHOLOGY | [address] | | | + + + + + | [facility] DEPARTMENT OF | [address] | [place] [address] | | | PATHOLOGY | [address] [...] + + + + + | [facility] DEPARTMENT OF | [address] | [address] | | | PATHOLOGY | [address] | | | + + + + + | [facility] DEPARTMENT OF | [address] | [address] | | | PATHOLOGY | [address] [...] DEPARTMENT OF | [address] | [place] [address] | | | PATHOLOGY | [address] | | | + + + + + | [facility] DEPARTMENT OF | [address] | [place] [address] | | | PATHOLOGY | [address] [...] DEPARTMENT OF | [address] | [address] | | | PATHOLOGY | [address] | | | + + + + + | [facility] DEPARTMENT OF | [address] | [place] [address] | | | PATHOLOGY | [address] [...] + + + + | PRODUCT | [id number] | | [facility] | | | UNIT [...] | + + + + + | [facility] | [address] | [address] | | | PATHOLOGY | [address] | | | + + + + + | [facility] | [address] | [address] | | | PATHOLOGY | [address] [...] + + + + + | [facility] DEPARTMENT | [address] | [place] [address] | | | PATHOLOGY | [address] | | | + + + + + | [facility] | [address] [place] [address] | [address] | | | PATHOLOGY | [address] [...] + + + + | PRODUCT | [id number] | | [facility] | | | UNIT [...] DEPARTMENT OF | [address] | [place] [address] | | | PATHOLOGY | [address] | | | + + + + + | [facility] | [address] | [address] | | | PATHOLOGY | [address] | | | + + + + + documented in this encounter Visit Diagnoses Not on filedocumented in this encounter"
--- OUTSIDE RECORDS SUMMARY | ~2019-03-23 | XMS | Encounter Summary ---
Demographics + + + | Address | [address] | | | [place] [address] | + + + | Home Phone [...] Team Providers + +------+ + | Care Assembler Wet Wash Name | Role | Phone | + +------+ + PCP | Unavailable | + +------+ + Encounter Details +--------+ + + + + | Date | Type | Department | Care Team | Description | +--------+ + + + + | // | Results | | Rick Castro | | | 2002 | Only | | | | +--------+ [...] | BASIC METABOLIC SET | Urgent | 11/27/2002 | | Results for this | | (NA, K, CL, TCO2, | | 3:31 AM | | procedure are in the | | BUN, CR, GLU, CA) | | PST | | results section. | + +--------+ + + + | CT HEAD WO CONTRAST | Routin | 11/26/2002 | | Results for this | | | e | 9:00 PM | | procedure are in the | | | | PST | | results section. | + +--------+ + + + documented in this encounter Results BASIC METABOLIC SET (11/27/2002 3:31 AM PST) + +---------+ + + + | Component | Value | Ref Range | Performed | Pathologist | | | | | At | Signature | + +---------+ + + + | GLUCOSE, | 180 (H) | 65 - 110 mg/dL | [facility] | | | PLASMA | | | DEPARTMENT | | | (LAB) | | | OF | | | | | | PATHOLOGY | | + +---------+ + + + | BUN, PLASMA | 6 | 6 - 20 mg/dL | [facility] | | | (LAB) | | | DEPARTMENT | | | | | | OF | | | | | | PATHOLOGY | | + +---------+ + + + | CREATININE | 0.6 | 0.6 - 1.1 mg/dL | [facility] | | | PLASMA | | | DEPARTMENT | | | (LAB) | | | OF | | | | | | PATHOLOGY | | + +---------+ + + + | SODIUM, | 134 (L) | 136 - 145 | [facility] | | | PLASMA | | mmol/L | DEPARTMENT | | | (LAB) | | | OF | | | | | | PATHOLOGY | | + +---------+ + + + | POTASSIUM, | 3.8 | 3.5 - 5.1 | [facility] | | | PLASMA | | mmol/L | DEPARTMENT | | | (LAB) | | | OF | | | | | | PATHOLOGY | | + +---------+ + + + | CHLORIDE, | 103 | 98 - 107 mmol/L | [facility] | | | PLASMA | | | DEPARTMENT | | | (LAB) | | | OF | | | | | | PATHOLOGY | | + +---------+ + + + | TOTAL CO2, | 25 | 23 - 29 mmol/L | [facility] | | | PLASMA | | | DEPARTMENT | | | (LAB) | | | OF | | | | | | PATHOLOGY | | + +---------+ + + + | CALCIUM, | 8.8 | 8.5 - 10.5 | [facility] | [...] | + + + + + | [facility] DEPARTMENT OF | [address] | [place] [address] | | | PATHOLOGY | [address] | | | + + + + + | [facility] DEPARTMENT OF | [address] | [place] [address] | | | PATHOLOGY | [address] | | | + + + + + CT HEAD WO CONTRAST (11/26/2002 9:00 PM PST) + + + + + + | Component | Value | Ref Range | Performed | Pathologist | | | | | At | Signature | + + + + + + | CT HEAD WO | Radiologist 1: HOWARD, | | | | | CONTRAST | Isamar HOPPER-Radiologist | | | | | | 2: LINDSEY FLAHERTY, | | | | | | IsamarCT | | | | | | HEAD: 11/26/2002 | | | | | | Dictated 11/27/2002 | | | | | | CLINICAL | | | | | | HISTORY: Geamsj-ywo-f | | | | | | ear-old female status | | | | | | post middle fossarepair. | | | | | | TECHNIQUE: 6 mm | | | | | | axial sections were | | | | | | obtained from the | | | | | | foramen magnumto the | | | | | | vertex without | | | | | | administration of | | | | | | intravenous contrast. | | | | | | COMPARISON: CT | | | | | | cisternogram 10/12/2002. | | | | | | FINDINGS: The brain | | | | | | morphology is normal. | | | | | | The patient is status | | | | | | post a right temporal | | | | | | craniotomy. There | | | | | | arescattered locules of | | | | | | air beneath the | | | | | | craniotomy flap and over | | | | | | theright frontal lobe. | | | | | | The right mastoid and | | | | | | middle ear effusion has | | | | | | decreased since theprior | | | | | | study. No significant | | | | | | postoperative hemorrhage | | | | | | is seen. The basal | | | | | | cisterns are not well | | | | | | seen which may be due to | | | | | | loss ofcerebrospinal | | | | | | fluid and resultant | | | | | | intracranial | | | | | | hypotension. The | | | | | | visualized orbital | | | | | | contents and paranasal | | | | | | sinuses are normal. | | | | | | IMPRESSION: Status post | | | | | | right temporal | | | | | | craniotomy for CSF | | | | | | leak. No | | | | | | significantpostoperative | | | | | | hemorrhage. The | | | | | | basal cisterns are not | | | | | | well seen whichmay be | | | | | | due to loss of | | | | | | cerebrospinal fluid and | | | | | | resultant | | | | | | intracranialhypotension. | | | | | | END OF IMPRESSION: | | | | + + + + + + + + | Specimen | + + | | + + + +---------+ + + | Performing | Address | City/State/Zipcode | Phone Number | | Organization | | | | + +---------+ + + | [facility] DEPARTMENT OF | | | | | RADIOLOGY | | | | + +---------+ + + documented in this encounter Visit Diagnoses Not on filedocumented in this encounter"
--- OUTSIDE RECORDS SUMMARY | ~2019-03-23 | XMS | Encounter Summary ---
Demographics + + + | Address | [address] | | | [place] [address] | + + + | Home Phone [...] Team Providers + +------+ + | Care Matrix Plater Name | Role | Phone | + [...] as of this encounter Progress Notes Interface, Citizen Participation Specialist In - 05/23/2005 6:26 AM PDT [id number] RIGO MENDOZA [facility] Date: 04/13/2005 Clinic: I saw the [...] appears normal bilaterally. Jhoan Benton M.D., F.A.C.S. [facility] Department of Otolaryngology/ Head and Neck Surgery and Department of Neurosurgery [facility] / [id number] / [id number] / [id number] / [id number] documented i n this encounter Plan of Treatment Not on filedocumented as of this encounter Visit Diagnoses Not on filedocumented in this encounter"
--- OUTSIDE RECORDS SUMMARY | ~2019-03-23 | XMS | Encounter Summary ---
Demographics + + + | Address | [address] | | | [place] [address] | + + + | Home Phone [...] Team Providers + +------+ + | Care Aquatics Assistant Department Head Name | Role | Phone | + +------+ + PCP | Unavailable | + +------+ + Encounter Details +--------+ + + + + | Date | Type | Department | Care Team | Description | +--------+ + + + + | 11/30/ | Discharge | | Summary, Discharge | D/C Summary ODDS | | 2002 | Summary-Tra | | | | | [...] as of this encounter Discharge Summaries Interface, Statistical Programmer Analyst In - 05/01/2006 3:02 AM PDT [place] [address] [place], [place] [address] [facility] MEDICAL SUMMARY OF HOSPITALIZATION Med Rec No: [id number] Admission Date: 11/26/2002 Name: Nu Moreno Discharge Date: 11/30/2002 ATTENDING PHYSICIAN: Omar Pratt Jr., M.D. PRINCIPAL FINAL DIAGNOSIS: Encephalocele with cerebrospinal fluid leak. ADDITIONAL DIAGNOSES: Dural tear. PRINCIPAL PROCEDURE: Right middle fissure craniectomy. ADDITIONAL PROCEDURES: 1. Lumbar drain. 2. Intensive Care Unit monitoring. REASON FOR ADMISSION: The patient is a 37-year-old white female with a three year history of right sided pulsatile tinnitus status post PE tube, was found to have a cerebrospinal fluid leak. Seen by Dr. Le in clinic and a computerized tomography (CT) scan showed a possible erosion into her mastoid air cells and scheduled for elective surgery on November 26, 2002 for a right middle fissure craniectomy. ALLERGIES: Not dictated. HOSPITAL COURSE: The patient was admitted on November 26, 2001, postoperatively after a right middle fissure craniectomy with a exploration and resection with encephalocele and repair of a cerebrospinal fluid skull base leak. Postoperatively, the patient was extubated and transferred to the Intensive Care Unit where she was observed for 24 hours. After which she was felt safe to be transferred to the floor with no neurologic changes. She was transferred to the floor and was flat in bed secondary to lumbar drain placement and remained that way for three days. After the third day, her lumbar drain was removed. She had no cerebrospinal fluid from her nose, from her nose, from her back at the drain site, and was allowed to ambulate, and her Gutierrez catheter was removed. She was tolerating a regular diet. Her neuro examination was completely intact. Her pupils were reactive, her face was symmetric, her cranial nerves were intact. She moved all extremities spontaneously with 5/5 strength in her bilateral upper and lower extremities. She was felt safe to be discharged home on November 30, 2002. DISCHARGE MEDICATIONS: 1. Oxycodone 5 to 15 mg p.o. every three to fours p.r.n. 2. Senokot take two tablets p.o. b.i.d. DIET: Regular. ACTIVITY: No lifting greater than 15 pounds. FOLLOW-UP CARE: Follow-up is with Omar Pratt Jr., M.D. in neurosurgery clinic in two weeks. She is to come back to clinic sooner with complaints of headache, fever, nausea, vomiting, redness around the incision, or any other concerns, or visual changes, or neurologic findings. Bismark Albarran M.D. Omar Pratt Jr., M.D. AB:[id number] cc: ASTRID STRATTON MD [address] [place] [address]#[place] [id number] signed by Interface, Statistical Programmer Analyst In at 05/01/2006 3:02 AM PDTdoc umented in this encounter Plan of Treatment Not on filedocumented as of this encounter Visit Diagnoses Not on filedocumented in this encounter"
--- OUTSIDE RECORDS SUMMARY | ~2019-03-23 | XMS | Encounter Summary ---
Demographics + + + | Address | [address] | | | [place] [address] | + + + | Home Phone [...] Team Providers + +------+ + | Care Securities Research Analyst Name | Role | Phone | + [...] [facility] | | | | | [facility] | [place], [place] | | | | | Mailcode: PV01 | [address] | | | | | PhysicianMoriahs Pedro | [phone] | | | | | [place], [place] | | | | | | [address] | | | | | | [phone] | | | +--------+--------+ + + + [...]
--- OUTSIDE RECORDS SUMMARY | ~2019-03-23 | XMS | Encounter Summary ---
Demographics + + + | Address | [address] | | | [place] [address] | + + + | Home Phone | | + + + | Preferred Language | Unknown | + + + | Marital Status | | + + + | Uatsdin Affiliation | CAT | + + + [...] Team Providers + +------+ + | Care Lead Ingot Molder Name | Role | Phone | + [...] as of this encounter Progress Notes Interface, Nursing Surgical Services Director In - 05/23/2005 9:03 AM PDT [id number] RIGO MENDOZA [facility] Date: 09/25/2004 Clinic: OTOLOGY CLINIC Subjective : [...] MD Jhoan Hernandez M.D., F.A.C.S / [place] [id number] / [id number] / [id number] / documented i n this encounter Plan of Treatment Not on filedocumented as of this encounter Visit Diagnoses Not on filedocumented in this encounter"
--- OUTSIDE RECORDS SUMMARY | ~2019-03-23 | XMS | Encounter Summary ---
Demographics + + + | Address | [address] | | | [place] [address] | + + + | Home Phone [...] Providers + +------+ + | Care Food Safety Director Name | Role | Phone | [...]
--- OUTSIDE RECORDS SUMMARY | ~2019-03-23 | XMS | Encounter Summary ---
Demographics + + + | Address | [address] | | | [place] [address] | + + + | Home Phone | | + + + | Preferred Language | Unknown | + + + | Marital Status | | + + + | Yarsanism Affiliation | CAT | + + + [...] Team Providers + +------+ + | Care Substation Technician Name | Role | Phone | [...] OF | [address] | [place] [address] | | | PATHOLOGY | [address] | | | + + + + + | [facility] DEPARTMENT OF | [address] | [place] [address] | | | PATHOLOGY | [address] [...] + + + + + | [facility] DEPARTMENT OF | [address] | [place] [address] | | | PATHOLOGY | [address] | | | + + + + + | [facility] DEPARTMENT OF | [address] | [place] [address] | | | PATHOLOGY | [address] | | | + + + + + MAGNESIUM, PLASMA (10/14/2004 4:05 AM PST) + +-------+ + + + | Component | Value | Ref Range | Performed | Pathologist | | | | | At | Signature | + +-------+ + + + | MAGNESIUM,P | 2.3 | 1.8 - 2.5 mg/dL | [facility] | | | LASMA | | | [...] + + + + + | [facility] DEPARTMENT OF | [facility] | [place] [address] | | | PATHOLOGY | [address] | | | + + + + + | [facility] DEPARTMENT OF | [address] | [place] [address] | | | PATHOLOGY | [address] [...] | + + + + + | [facility] | [address] | [place] [address] | | | PATHOLOGY | [address] | | | + + + + + | [facility] DEPARTMENT OF | [address] | [place] [address] | | | PATHOLOGY | [address] | | | + + + + + documented in this encounter Visit Diagnoses Not on filedocumented in this encounter"
--- OUTSIDE RECORDS SUMMARY | ~2019-03-23 | XMS | Encounter Summary ---
Demographics + + + | Address | [address] | | | [place] [address] | + + + | Home Phone | | + + + | Preferred Language | Unknown | + + + | Marital Status | | + + + | Jainism Affiliation | CAT | + + + | Race | White | + + + | Ethnic Group | Not or | + + + Author + + + | Author | [facility] | + + + | Organization | [facility] | + + + | Address | Unknown | + + + | Phone | Unavailable | + + + Support + + +---------+ + | Name | Relationship | Address | Phone | + + +---------+ + | Gerry Moreno | ECON | Unknown | | + + +---------+ + Care Team Providers + +------+ + | Care Sole Dyer Name | Role | Phone | + [...] CSF leak | MD Jhoan | [address] [facility] [address] | | | | | Procedures | [...] Healing, | | | | | | [place], [place] | [address]rd Floor | | | | | | [address] | [place], [place] | | | | | | Phone: | [phone] | | | | | | [phone] | Phone: | | | | | | Fax: | [phone] | | | | | | [phone] | Fax: | | | | | | | [phone] | +--------+--------+ + + + + Diagnostic [...] | | | CSF leak | MD Johan | [address] | | | [...] Healing, | | | | | | [place], [place] | [address]rd Floor | | | | | | [address] | [place], [place] | | | | | | Phone: | [phone] | | | | | | [phone] | Phone: | | | | | | Fax: | [phone] | | | | | | | Fax: | | | | | | | [phone] | +--------+--------+ + + + + Reason [...] + + | 06/03/ | Hospital | [facility] [address] | [place], | | | 2010 | Encounter | [address] | [address] [facility] | | | | | [address] [facility] | [facility] | | | | | [place] [address] | [place], [place] | | | | | [phone] | [address] | | | | | | [phone] | | | | | | | | | | | | Zaida Parr, | | | | | | [address] | | | | | | [facility] | | | | | | [place], [place] | | | | | | [address] | | | | | | [phone] | | | | | | | | | | | | Gerry Jeter MD | | | | | | [address] | | | | | | [place], | | | | | | [place] [address] | | | | | | [phone] | | | | | | | [...] | + + + + + | [facility] DEPARTMENT | [address] | [place] [address] | | | PATHOLOGY | [address] | | | + + + + + INR (06/03/2011 7:23 AM PDT) + + + + + + | Component | Value | Ref Range | Performed | Pathologist | | | | | At | Signature | + + + + + + | INR | 1.05Comment: | 0.90 - 1.20 INR | [facility] | | | | INR | [...] + + + + + | [facility] | [address] | [place] [address] | | | PATHOLOGY | [address] [...]
--- OUTSIDE RECORDS SUMMARY | ~2019-03-23 | XMS | Encounter Summary ---
Demographics + + + | Address | [address] | | | [place] [address] | + + + | Home Phone | | + + + | Preferred Language | Unknown | + + + | Marital Status | | + + + | Mormonism Affiliation | CAT | + + + | Race | White | + + + | Ethnic Group | Not or | + + + Author + + + | Author | [facility] | + + + | Organization | [facility] | + + + | Address | Unknown | + + + | Phone | Unavailable | + + + Support + + +---------+ + | Name | Relationship | Address | Phone | + + +---------+ + | Gerry Moreno | ECON | Unknown | | + + +---------+ + Care Team Providers + +------+ + | Care Fitness Director Name | Role | Phone | + +------+ + PCP | Unavailable | + +------+ + Reason for Referral Audiology Services (Routine) +--------+--------+ + + + + | Status | Reason | Specialty | Diagnoses / | Referred By | Referred To | | | | | Procedures | Contact | Contact | +--------+--------+ + + + + | Closed | | Screening Representative | Procedures | [place], | Ent | | | | | CONSULT TO | MD Jhoan | Audiology Ppv | | | | | ENT | [facility] | [address] | | | | | AUDIOLOGY | Otolaryngolo | [address] | | | | | | gy Assoc | [address] | | | | | | [address] | Mailcode: | | | | | | [address] | [address] | | | | | | [place], [place] | Physician's | | | | | | [address] | Pedro | | | | | | Phone: | [place], [place] | | | | | | [phone] | [address] | | | | | | Fax: | Phone: | | | | | | | [phone] | | | | | | | Fax: | | | | | | | [phone] | +--------+--------+ + + + + Reason for Visit + + + | Reason | Comments | + + + | Follow-up in | 6 month f/u, s/p bilat. middle fossa encephalocele repair 1999. | | outpatient clinic | | + + + Encounter Details +--------+---------+ + + + | Date | Type | Department | Care Team | Description | +--------+---------+ + + + | 11/12/ | Office | Otolaryngology | Jhoan Benton, | CONDUCTIVE HEARING | | 2006 | Visit | Otology Services at | MD ROSADOU | LOSS, MIDDLE EAR | | | | PPV [address] | Otolaryngology Assoc | (Primary Dx); | | | | [facility] | [address] [place] [address] [address] | OBJECTIVE TINNITUS; | | | | Mailcode: [address] | [address] [place], [place] | CEREBROSPINAL FLUID | | | | [facility] | [id number] | [place]A | | | | [place], [place] | (Fax) | | | | | [address] | | | | | | [phone] | | | +--------+---------+ + + + [...] of this encounter Progress Notes Jhoan Benton - 11/12/2005 6:24 PM PSTpt returns. still with occ R puls tinnitus. No otalgia or ottorhea. No sx c/w csf leak. TM's clear, no fluid in middle ear. incisions well healed. FN nl bilat. plan obtain CT today anf f/u after scan. Continue bite guard for TMJ issues. Jhoan Benton M.D., F.A.C.S. Professor and Attending Physician Chief, Division of Otology/ Neurology/Skull Base Surgery Head and Neck Surgery and Neurosurgery documented in this encoun ter Plan of Treatment + + +--------+ + + | Name | Type | Priori | Associated Diagnoses | Order Schedule | | | | ty | | | + + +--------+ + + | NC EAR MICROSCOPY | Procedures | Routin | Conductive Hearing | Ordered: 11/12/2005 | | EXAMINATION | | e | Loss, Middle Ear | | | | | | Objective Tinnitus | | | | | | Cerebrospinal Fluid | | | | | | Otorrhea | | + + +--------+ + + documented as of this encounter Procedures + +--------+ + + + | Procedure Name | Priori | Date/Time | Associated Diagnosis | Comments | | | ty | | | | + +--------+ + + + | CT TEMPBONE BENIGN | Routin | 11/12/2005 | | Results for this | | DISEASE WO CONTRAST | e | 3:21 PM | | procedure are in the | | | | PST | | results section. | + +--------+ + + + documented in this encounter Results CT TEMPBON BENIGN DISEASE WO (11/12/2005 3:21 PM PST) + + + + + + | Component | Value | Ref Range | Performed | Pathologist | | | | | At | Signature | + + + + + + | CT TEMPBON | Radiologist 1: ANUJ, | | | | | BENIGN | MYLES-Radiologist 2: | | | | | DISEASE WO | MYLES LESLIECT | | | | | | TEMPORAL BONES 11/12/05 | | | | | | HISTORY: History of | | | | | | bilateral middle cranial | | | | | | fossa | | | | | | encephalocelerepair. Now | | | | | | complains of tinnitus. | | | | | | COMPARISON: 10/12/02 | | | | | | TECHNIQUE: Direct axial | | | | | | and coronal 1 mm images | | | | | | were acquiredthrough the | | | | | | temporal bones and | | | | | | reviewed in soft tissue | | | | | | and bonealgorithms. | | | | | | FINDINGS:The external | | | | | | auditory canals, middle | | | | | | ear and inner ears are | | | | | | normalbilaterally. There | | | | | | is no evidence of | | | | | | inflammation. There is | | | | | | nocerebellar pontine | | | | | | angle mass. Normal | | | | | | aeration of the mastoid | | | | | | aircells is present. | | | | | | Bitemporal craniotomies | | | | | | are noted. Small bony | | | | | | defectin the right | | | | | | tegmen tympani is again | | | | | | noted, but presumably | | | | | | soft tissuerepresents | | | | | | post surgical chagnes, | | | | | | as there is no | | | | | | evidencefor fluid in the | | | | | | mastoids or middle | | | | | | ear. Asymmetricenlarg | | | | | | ed right jugular foramen | | | | | | is noted. Paranasal | | | | | | sinuses and orbits are | | | | | | normal. IMPRESSION: No | | | | | | acute abnormality. | | | | + + + + + + + + | Specimen | + + | | + + + +---------+ + + | Performing | Address | City/State/Zipcode | Phone Number | | Organization | | | | + +---------+ + + | [facility] DEPARTMENT OF | | | | | RADIOLOGY | | | | + +---------+ + + documented in this encounter Visit Diagnoses + + | Diagnosis | + + | Conductive hearing loss, middle ear - Primary | + + | Objective tinnitus | + + | Cerebrospinal fluid otorrhea | + + documented in this encounter"
--- OUTSIDE RECORDS SUMMARY | ~2019-03-23 | XMS | Clinical Summary ---
Demographics + + + | Address | [address] | | | [place] [address] | + + + | Home Phone | | + + + | Preferred Language | Unknown | + + + | Marital Status | | + + + | Quaker Affiliation | 1013 | + + + | Race | Unknown | + + + | Ethnic Group | Unknown | + + + Author + + + | Author | [facility] [employer] [facility] | + + + | Organization | [facility] [employer] | + + + | Address | Unknown | + + + | Phone | Unavailable | + + + Support + + + + + | Name | Relationship | Address | Phone | + + + + + | Gerry Moreno | ECON | [address] | | | | | [place] | | | | | [address] | | + + + + + Care Team Providers + +------+ + | Care Turbine Technician Name | Role | Phone | + +------+ + | Shant Carlos DO | PP | | + +------+ + Allergies Not on File Current Medications Not on file Active Problems Not on file Social History + +-------+ +--------+------+ | Tobacco [...] on file | | + + + Plan of Treatment Not on file Results Not on filefrom Last 3 Months"
--- OUTSIDE RECORDS SUMMARY | ~2019-03-23 | XMS | Encounter Summary ---
Demographics + + + | Address | [address] | | | [place] [address] | + + + | Home Phone [...] Team Providers + +------+ + | Care Kitchen And Counter Worker Name | Role | Phone | + [...] as of this encounter Progress Notes Interface, Script Supervisor In - 05/24/2006 1:07 AM PDTCLINIC DATE: 09/28/2002 REFERRING PHYSICIAN: Jay Morales M.D. [address] [place] [address] History of draining ear after PE tube, [...] intrathecal leak study. Jhoan Benton M.D., F.A.C.S. Manager Medical Writing Department of Otolaryngology/ Head and Neck Surgery and Department of Neurosurgery [facility] / [id number] / [id number] / [id number] / [id number] Cid Script Supervisor In - 05/24/2006 1:07 AM PDTCLINIC DATE: 09/28/2002 OTOLARYNGOLOGY CLINIC REFERRING PHYSICIAN: Jay Morales M.D. [address] [place] [address]. [address] [place] [id number] CHIEF COMPLAINT: Possible cerebrospinal fluid leak. HISTORY [...] Mike Nix M.D. Jhoan Benton M.D., F.A.C.S. [facility] / [id number] / [id number] / [id number] / Tdocumented in this encounter Plan of Treatment Not on filedocumented as of this encounter Visit Diagnoses Not on filedocumented in this encounter"
--- OUTSIDE RECORDS SUMMARY | ~2019-03-23 | XMS | Encounter Summary ---
Demographics + + + | Address | [address] | | | [place] [address] | + + + | Home Phone [...] Team Providers + +------+ + | Care Pleating Supervisor Name | Role | Phone | + +------+ + PCP | Unavailable | + +------+ + Encounter Details +--------+ + + + + | Date | Type | Department | Care Team | Description | +--------+ + + + + | 12/29/ | Office | | Note, Outpatient | [...] as of this encounter Progress Notes Interface, Business Continuity Strategy Director In - 05/23/2005 11:46 AM PDT [id number] RIGO MENDOZA [facility] Date: 12/29/2004 Clinic: Otology - Neurotology - Skull Base The patient Nu Moreno doing extremely well status post repair of encephalocele on the left. The incision is well healed. Facial nerve is normal. No evidence of any middle ear fluids on the left. No evidence of CSF leak from the nose, the wound, or the ear. Jhoan Benton M.D., F.A.C.S. [facility] Department of Otolaryngology/ Head and Neck Surgery and Department of Neurosurgery [facility] / [id number] / [id number] / [id number] / [id number] cc: Isamar Allen M.D. [address] [place] [address] Electronically signed by Jhoan Benton 03-11-2005 09:06:48 AM documented i n this encounter Plan of Treatment Not on filedocumented as of this encounter Visit Diagnoses Not on filedocumented in this encounter"
--- OUTSIDE RECORDS SUMMARY | ~2019-03-23 | XMS | Encounter Summary ---
Demographics + + + | Address | [address] | | | [place] [address] | + + + | Home Phone | | + + + | Preferred Language | Unknown | + + + | Marital Status | | + + + | Scientologist Affiliation | CAT | + + + [...] Team Providers + +------+ + | Care Cnc Machinist 2Nd Shift Name | Role | Phone | + [...] | PPV [address] | [facility] | | | | | [facility] | [place], [place] | | | | | Mailcode: PV01 | [address] | | | | | PhysicianMoriahs Pedro | [phone] | | | | | [place], [place] | | | | | | [address] | | | | | | [phone] | | | +--------+--------+ + + + [...]
--- OUTSIDE RECORDS SUMMARY | ~2019-03-23 | XMS | Clinical Summary ---
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 | + + + + + | Abdominal pain, unspecified abdominal location | 10/13/2015 | + + + + + | Overview: Problem list policy writer sales utility | + + + + + [...] +---------+------+ | [facility] | PHP | [id number] | 10/24/19 | [phone] | | PPO | | PLAN | PEBB | | 15-Pre | 5 | | | | | STATEW | | sent | | | | | | REGULO | | | | | | + +--------+ +--------+ +---------+------+ | [facility] | PHP | [id number] | 10/24/19 | [phone] | | PPO | | PLAN | [...] | | al/Fam | | 1965 | [phone] | [place] | | | [place] | | | 2 (Home) | [address] | | | | | | [phone] | | | | | | | 5 (Work) | | + +--------+ +--------+ + + Advance Directives Patient has advance care planning documents on file. For more information, please contact:[facility] [address]
--- OUTSIDE RECORDS SUMMARY | ~2019-03-23 | XMS | Encounter Summary ---
Demographics + + + | Address | [address] | | | [place] [address] | + + + | Home Phone [...] + + + | Author | [facility] | + + + | Organization | [facility] | + + + | Address | Unknown | + + + | Phone | Unavailable | + + + Support + + +---------+ + | Name | Relationship | Address | Phone | + + +---------+ + | Gerry Moreno | ECON | Unknown | | + + +---------+ + Care Team Providers + +------+ + | Care Pond Sawyer Name | Role | Phone | + [...] Demarco | | | | | | [facility] | | | | | | Mailcode:OP14B | | | | | | [place] | | | | | | [place], [place] | | | | | | [address] | | | | | | [phone] | | | +--------+ + + + [...] + + + | [facility] | [address] | [place] [address] | | | PATHOLOGY | [address] | | | + + + + + | [facility] | [address] | [place] [address] | | | PATHOLOGY | [address] | | | + + + + + documented in this encounter Visit Diagnoses Not on filedocumented in this encounter
--- OUTSIDE RECORDS SUMMARY | ~2019-03-23 | XMS | Encounter Summary ---
Demographics + + + | Address | [address] | | | [place] [address] | + + + | Home Phone | | + + + | Preferred Language | Unknown | + + + | Marital Status | | + + + | Roman Catholic Affiliation | CAT | + + + [...] Team Providers + +------+ + | Care Insurance Loss Control Surveyor Name | Role | Phone | + [...] as of this encounter Discharge Summaries Interface, Rubber Compounder In - 05/01/2006 3:02 AM PDT [place] [address] [address] [place], [place] [address] [facility] MEDICAL SUMMARY OF HOSPITALIZATION Med Rec No: [...] Jr., M.D. AB:y00 cc: ASTRID STRATTON MD [address] [place] [address]#[place] [address] [id number] signed by Interface, Rubber Compounder In at 05/01/2006 3:02 AM PDTdoc umented in this encounter Plan of Treatment Not on filedocumented as of this encounter Visit Diagnoses Not on filedocumented in this encounter"
--- OUTSIDE RECORDS SUMMARY | ~2019-03-23 | XMS | Encounter Summary ---
Demographics + + + | Address | [address] | | | [place] [address] | + + + | Home Phone [...] Team Providers + +------+ + | Care Supervisor Corduroy Cutting Name | Role | Phone | + [...] as of this encounter Progress Notes Interface, Varnisher In - 05/01/2006 3:02 AM PDTCLINIC DATE: [...] Shant Kelley M.D. Jhoan Benton M.D., F.A.C.S. [facility] / [id number] / [id number] / [id number] / [id number] Tdocumented in this encounter Plan of Treatment Not on filedocumented as of this encounter Visit Diagnoses Not on filedocumented in this encounter"
--- OUTSIDE RECORDS SUMMARY | ~2019-03-23 | XMS | Encounter Summary ---
Demographics + + + | Address | [address] | | | [place] [address] | + + + | Home Phone [...] Team Providers + +------+ + | Care Mma Fighter Name | Role | Phone | + [...] as of this encounter Progress Notes Interface, Electrical Line Mechanic In - 05/23/2005 8:26 AM PDT [id number] RIGO MENDOZA [facility] Date: 08/14/2004 Clinic: Otology Clinic Subjective: [...] Godoy MD Resident Otolaryngology Clinic / [facility] [id number] / [id number] / [id number] / documented i n this encounter Plan of Treatment Not on filedocumented as of this encounter Visit Diagnoses Not on filedocumented in this encounter"
--- OUTSIDE RECORDS SUMMARY | ~2019-03-23 | XMS | Encounter Summary ---
Demographics + + + | Address | [address] | | | [place] [address] | + + + | Home Phone [...] Team Providers + +------+ + | Care Technical Marketing Engineer Name | Role | Phone | + [...] | P[facility] [address] | [facility] | | | | | [facility] | [place], [place] | | | | | Mailcode: PV01 | [address] | | | | | PhysicianMoriahs Pedro | [phone] | | | | | [place], [place] | | | | | | [address] | | | | | | [phone] | | | +--------+--------+ + + + [...]
--- OUTSIDE RECORDS SUMMARY | ~2019-03-23 | XMS | Encounter Summary ---
Demographics + + + | Address | [address] | | | [place] [address] | + + + | Home Phone [...] Team Providers + +------+ + | Care Mine Engineer Name | Role | Phone | [...] | + + + + + | [facility] DEPARTMENT OF | [address] | [place] [address] | | | PATHOLOGY | [address] | | | + + + + + | [facility] DEPARTMENT OF | [address] | [place] [address] | | | PATHOLOGY | [address] [...] | | | | | | HISTORY: [id number]-[id number] | | | | | | ear-old [...] | | + +---------+ + + | [facility] DEPARTMENT OF | | | | | RADIOLOGY | | | | + +---------+ + + documented in this encounter Visit Diagnoses Not on filedocumented in this encounter"
--- OUTSIDE RECORDS SUMMARY | ~2019-03-23 | XMS | Encounter Summary ---
Demographics + + + | Address | [address] | | | [place] [address] | + + + | Home Phone [...] Team Providers + +------+ + | Care Human Services Professional Name | Role | Phone | + [...] | | | | | [address] | [place], [place] | Mailcode: | | | | | [place] | [address] | [address] [facility] | | | | | [place] | Phone: | Hospital | | | | | [place] | [phone] | [place], [place] | | | | | SCAN,ORBIT/S | Fax: | [address] | | | | | BELINDA/POST | [phone] | Phone: | | | | | FOSSA/EAR,W/ | | [phone] | | | | | O | | Fax: | | | | | | | [phone] | +--------+--------+ + + + + Diagnostic [...] | | Procedures | [address] | [facility] | | | | | CT TEMPB[address] | [address] | Road | | | | | BEN[address] | [place], [place] | Mailcode: | | | | | [place] | [address] | [address] [facility] | | | | | [place] | Phone: | Hospital | | | | | CT | [phone] | [place], [place] | | | | | SCAN,ORBIT/S | Fax: | [address] | | | | | BELINDA/POST | [phone] | Phone: | | | | | FOSSA/EAR,W/ | | [phone] | | | | | O | | Fax: | | | | | | | [phone] | +--------+--------+ + + + + Reason [...] | | | | | BENIGN | [place], [place] | Mailcode: | | | | | [place] | [address] | [address] [facility] | | | | | [place] | Phone: | Hospital | | | | | CT | [phone] | [place], [place] | | | | | SCAN,ORBIT/S | Fax: | [address] | | | | | BELINDA/POST | [phone] | Phone: | | | | | FOSSA/EAR,W/ | | [phone] | | | | | O | | Fax: | | | | | | | [phone] | +--------+--------+ + + + + Encounter Details +--------+ + + + + | Date | Type | Department | Care Team | Description | +--------+ + + + + | 04/11/ | Hospital | Diagnostic Imaging | Phoenix Garza, | | | 2017 | Encounter | Services at [facility] | [address] | | | | | [address] | [facility] | | | | | [facility] | [place], [place] | | | | | Mailcode: [address] [facility] | [address] | | | | | [facility], | [phone] | | | | | [place] [address] | | | | | | [phone] | | | +--------+ + + + [...]
--- OUTSIDE RECORDS SUMMARY | ~2019-03-23 | XMS | Encounter Summary ---
Demographics + + + | Address | [address] | | | [place] [address] | + + + | Home Phone [...] Team Providers + +------+ + | Care Gusset Ripper Name | Role | Phone | + [...] Neuroscience | | | | | | [address] | | | | | | [address] | | | | | | [place] [address] | | | | | | [phone] | | | | | | | [...] + | [facility] DEPARTMENT OF | [address] [facility] | [place] [address] | | | PATHOLOGY | [address] | | | + + + + + | [facility] DEPARTMENT OF | [address] [facility] | [place] [address] | | | PATHOLOGY | [address] [...] | + + + + + | [facility] | [address] | [place] [address] | | | PATHOLOGY | [address] | | | + + + + + | [facility] | [address] | [place] [address] | | | PATHOLOGY | [address] | | | + + + + + documented in this encounter Visit Diagnoses Not on filedocumented in this encounter"
--- OUTSIDE RECORDS SUMMARY | ~2019-03-23 | XMS | Encounter Summary ---
Demographics + + + | Address | [address] | | | [place] [address] | + + + | Home Phone | | + + + | Preferred Language | Unknown | + + + | Marital Status | | + + + | Confucianism Affiliation | CAT | + + + [...] Team Providers + +------+ + | Care Marine Equipment Engineer Name | Role | Phone | [...] Mailcode: | | | | | | [address] | | | | | | [facility] | | | | | | [place], [place] | | | | | | [address] | | | | | | [phone] | | | +--------+ + + + [...]
--- OUTSIDE RECORDS SUMMARY | ~2019-03-23 | XMS | Encounter Summary ---
Demographics + + + | Address | [address] | | | [place] [address] | + + + | Home Phone | | + + + | Preferred Language | Unknown | + + + | Marital Status | | + + + | Methodist Affiliation | CAT | + + + [...] Team Providers + +------+ + | Care Retail Training Manager Name | Role | Phone | + +------+ + PCP | Unavailable | + +------+ + Encounter Details +--------+ + + + + | Date | Type | Department | Care Team | Description | +--------+ + + + + | 11/16/ | Office | | Note, Outpatient | [...] as of this encounter Progress Notes Interface, Oil Burner Repairer In - 04/27/2006 1:11 AM PDTCLINIC DATE: 11/16/2002 OTOLARYNGOLOGY CLINIC Ms. Moreno returns today for preoperative appointment. She has a right-sided CSF leak thought secondary to a defect in the tegmen although this is unclear on imaging studies. She has undergone CT scan as well as a sonogram that showed no definite cause. She did, however, have a PE tube placed for an effusion on that side, and it was persistently draining, found to be CSF. The patient is to have a right middle fossa craniotomy and mastoidectomy and repair of CSF defect. She understands this, and we had a full PAR conference with both her and Dr. Benton as well as me. All of her questions were answered, and consent was signed. She did also undergo an audiogram today that showed a conductive hearing loss on the right side approximately 30 to 20 dB gap; left side was normal. SRT on the right was 55 with 100% discrimination. She will return for the surgery in the near future. The patient was seen and examined with Dr. Jhoan Benton in his clinic. Shant Kelley M.D. Jhoan Benton M.D., F.A.C.S. [facility] / [id number] / [id number] / [id number] / [id number] Tdocumented in this encounter Plan of Treatment Not on filedocumented as of this encounter Visit Diagnoses Not on filedocumented in this encounter"
--- OUTSIDE RECORDS SUMMARY | ~2019-03-23 | XMS | Encounter Summary ---
Demographics + + + | Address | [address] | | | [place] [address] | + + + | Home Phone | | + + + | Preferred Language | Unknown | + + + | Marital Status | | + + + | Oriental Orthodox Affiliation | CAT | + + + [...] Team Providers + +------+ + | Care Land Commissioner Name | Role | Phone | + [...] as of this encounter Progress Notes Interface, Admittance Attendant In - 04/27/2006 1:11 AM PDTCLINIC DATE: [...] Shant Kelley M.D. Jhoan Benton M.D., F.A.C.S. [facility] / [id number] / [id number] / [id number] / [id number] Tdocumented in this encounter Plan of Treatment Not on filedocumented as of this encounter Visit Diagnoses Not on filedocumented in this encounter"
--- OUTSIDE RECORDS SUMMARY | ~2019-03-23 | XMS | Encounter Summary ---
Demographics + + + | Address | [address] | | | [place] [address] | + + + | Home Phone [...] + + + | Author | [facility] | + + + | Organization | [facility] | + + + | Address | Unknown | + + + | Phone | Unavailable | + + + Support + + +---------+ + | Name | Relationship | Address | Phone | + + +---------+ + | Gerry Moreno | ECON | Unknown | | + + +---------+ + Care Team Providers + +------+ + | Care Director Of Neighborhood Service [facility] Name | Role | Phone | + [...] 05/25/ | Telephone | Otolaryngology | Jhoan eBnton, | Treatment Question | | 2010 | | Otology Services at | MD AREVALO | | | | | P[facility] [address] | [facility] | | | | | [facility] | [address] | | | | | Mailcode: PV01 | [address] [place], [place] | | | | | Physician's Pedro | [address] | | | | | [place], [place] | (Fax) | | | | | [address] | | | | | | [phone] | | | +--------+ + + + [...]
--- OUTSIDE RECORDS SUMMARY | ~2019-03-23 | XMS | Encounter Summary ---
Demographics + + + | Address | [address] | | | [place] [address] | + + + | Home Phone [...] Team Providers + +------+ + | Care Shank Inspector Name | Role | Phone | [...]
--- OUTSIDE RECORDS SUMMARY | ~2019-03-23 | XMS | Encounter Summary ---
Demographics + + + | Address | [address] | | | [place] [address] | + + + | Home Phone [...] Team Providers + +------+ + | Care Needle Grader Name | Role | Phone | + [...] | CONSULT TO | Cory Garcia | [address] | | | | | ENT OTOLOGY | [facility] [place] | Mailcode: | | | | | | [address] | [address] | | | | | | Phone: | Physician's | | | | | | [phone] | Pavilion | | | | | | Fax: | [place], [place] | | | | | | [phone] | [address] | | | | | | | Phone: | | | | | | | [phone] | | | | | | | Fax: | | | | | | | [phone] | +--------+--------+ + + + + Reason [...] | | | | leak | [place] [address] | [address] | | | | | | Phone: | Phone: | | | | | | [phone] | [phone] | | | | | | Fax: | Fax: | | | | | | [phone] | [phone] | +--------+--------+ + + + + Encounter Details +--------+---------+ + + + | Date | Type | Department | Care Team | Description | +--------+---------+ + + + | 03/02/ | Office | [facility] | Phoenix Bright, | CSF leak (Primary | | 2015 | Visit | Center at [facility] [address] | MD [address] | Dx); Chronic | | | | [address] | [place], [place] | ethmoidal sinusitis; | | | | Code: [facility] Center | [address] | Chronic maxillary | | | | for Health and | [phone] | sinusitis; | | | | Healing, 5th Floor | | Cerebrospinal fluid | | | | [place], [place] | | rhinorrhea | | | | [address] | | | | | | [phone] | | | +--------+---------+ + + + [...] might be different fr om the original. [facility] HPI: Nu Moreno is a 50 y.o. female who presents to the [facility] in [facility] [place] for Chronic rhinosinusitis and CSF leak. Current [...] | + +--------+ + + + | [place] NASAL | Routin | 03/03/2016 | Chronic [...]
--- OUTSIDE RECORDS SUMMARY | ~2019-03-23 | XMS | Clinical Summary ---
Demographics + + + | Address | [address] | | | [place] [address] | + + + | Home Phone | | + + + | Preferred Language | Unknown | + + + | Marital Status | | + + + | Religion Affiliation | 1013 | + + + | Race | Unknown | + + + | Ethnic Group | Unknown | + + + Author + + + | Author | [facility] | + + + | Organization | [facility] | + + + | Address | Unknown | + + + | Phone | Unavailable | + + + Support + + + + + | Name | Relationship | Address | Phone | + + + + + | Gerry Moreno | ECON | [address] | | | | | [place] | | | | | [address] | | + + + + + Care Team Providers + +------+ + | Care Tire Building Supervisor Name | Role | Phone | [...]
--- OUTSIDE RECORDS SUMMARY | ~2019-03-23 | XMS | Encounter Summary ---
Demographics + + + | Address | [address] | | | [place] [address] | + + + | Home Phone [...] + + + | Author | [facility] | + + + | Organization | [facility] | + + + | Address | Unknown | + + + | Phone | Unavailable | + + + Support + + +---------+ + | Name | Relationship | Address | Phone | + + +---------+ + | Gerry Moreno | ECON | Unknown | | + + +---------+ + Care Team Providers + +------+ + | Care Feather Baler Name | Role | Phone | + [...] | e (HCC) | [address] | [facility] | | | | | Procedures | [facility] | Mailcode: | | | | | MRI IAC WWO | [place], [place] | [address] | | | | | CONTRAST | [address] | [place] | | | | | | | Research | | | | | | | [address] | | | | | | | [place], [place] | | | | | | | [address] | | | | | | | Phone: | | | | | | | [phone] | | | | | | | Fax: | | | | | | | [phone] | +--------+--------+ + + + + Reason [...] CT scans and | | | | [facility] | [address] | follow up with PETER, | | | | Mailcode: [address]01 | [address] [place], [place] | will need new | | | | [facility] Pav[facility] | [address] | orders. Hasn't seen | | | | [place], [place] | (Fax) | PETER in 4yrs.) | | | | [address] | | | | | | [phone] | | | +--------+ + + + [...]
--- OUTSIDE RECORDS SUMMARY | ~2019-03-23 | XMS | Encounter Summary ---
Demographics + + + | Address | [address] | | | [place] [address] | + + + | Home Phone | | + + + | Preferred Language | Unknown | + + + | Marital Status | | + + + | Evangelical Affiliation | CAT | + + + | Race | White | + + + | Ethnic Group | Not or | + + + Author + + + | Author | [facility] | + + + | Organization | [facility] | + + + | Address | Unknown | + + + | Phone | Unavailable | + + + Support + + +---------+ + | Name | Relationship | Address | Phone | + + +---------+ + | Gerry Moreno | ECON | Unknown | | + + +---------+ + Care Team Providers + +------+ + | Care Product Safety Manager Name | Role | Phone | [...] [facility]oc | | | | | [facility] | [address] [place] [address] | | | | | Mailcode: [address]01 | [address] [place], [place] | | | | | Physician[facility] | [address] | | | | | [place], [place] | | | | | | [address] | | | | | | [phone] | | | +--------+ + + + [...]
--- OUTSIDE RECORDS SUMMARY | ~2019-03-23 | XMS | Encounter Summary ---
Demographics + + + | Address | [address] | | | [place] [address] | + + + | Home Phone [...] Team Providers + +------+ + | Care Senior Asp Net Developer Name | Role | Phone | [...] | CSF leak | MD Jhoan | [facility] [address] | | | | | Procedures | [facility] | [address] | | | | | [place] | Otolaryngolo | [facility] | | | | | CEREBROSPINA | gy Assoc | Mailcode: | | | | | L FLUID FLOW | [address] | [address] | | | | | | [address] | Dav Anderson | | | | | (CISTERNOGRA | [place], [place] | [place], [place] | | | | | PHY) | [address] | [address] | | | | | | Phone: | Phone: | | | | | | [phone] | [phone] | | | | | | Fax: | Fax: | | | | | | | [phone] | +--------+--------+ + + + + Consultation [...] | ENT / | gy Assoc | [address] | | | | | OTOLARYNGOLO | [address] | Mailcode: | | | | | [place] | [address] | [address] | | | | | | [place], [place] | Physician's | | | | | | [address] | Pavilion | | | | | | Phone: | [place], [place] | | | | | | [phone] | [address] | | | | | | Fax: | Phone: | | | | | | | [phone] | | | | | | | Fax: | | | | | | | [phone] | +--------+--------+ + + + + Diagnostic [...] | | CT [place] | Otolaryngolo | [facility] | | | | | BENIGN | gy Assoc | Road | | | | | DISEASE W | [address] | Mailcode: | | | | | | [address] | [address] [place] | | | | | | [place], [place] | [facility] | | | | | | [address] | [place], [place] | | | | | | Phone: | [address] | | | | | | [phone] | Phone: | | | | | | Fax: | [phone] | | | | | | [phone] | Fax: | | | | | | | [phone] | +--------+--------+ + + + + Diagnostic [...] CSF leak | MD Jhoan | 3 [facility] [address] | | | | | Procedures [...] Healing, | | | | | | [place], [place] | 3rd Floor | | | | | | [address] | [place], [place] | | | | | | Phone: | [phone] | | | | | | [phone] | Phone: | | | | | | Fax: | [phone] | | | | | | [phone] | Fax: | | | | | | | [phone] | +--------+--------+ + + + + Reason [...] | | | | | | | [employer] | | | | | | | Mailcode: | | | | | | | [address] | | | | | | | Physician's | | | | | | | [address] | | | | | | | [place], [place] | | | | | | | [address] | | | | | | | Phone: | | | | | | | [phone] | | | | | | | Fax: | | | | | | | [phone] | +--------+--------+ + + + + Encounter [...] | fluid otorrhea | | | | [facility] | [address] [place] [address] | | | | | Mailcode: [address] | [address] [place], [place] | | | | | Physician's Pavilion | [address] | | | | | [place], [place] | (Fax) | | | | | [address] | | | | | | [phone] | | | +--------+---------+ + + + [...] time. She has headaches top of the gnosticism and low to the posterior part of [...] which she describes as located in her gnosticism s, feels like a tight band, and [...] | | + +---------+ + + | [facility] DEPARTMENT OF | | | | [...] | | + +---------+ + + | [facility] DEPARTMENT OF | | | | | RADIOLOGY | | | | + +---------+ + + documented in this encounter Visit Diagnoses + + | Diagnosis | + + | CSF leak - Primary Other specified disorder of nervous system | + + | Cerebrospinal fluid otorrhea | + + documented in this encounter"
--- OUTSIDE RECORDS SUMMARY | ~2019-03-23 | XMS | Encounter Summary ---
Demographics + + + | Address | [address] | | | [place] [address] | + + + | Home Phone [...] Team Providers + +------+ + | Care Bakery Technician Name | Role | Phone | + +------+ + PCP | Unavailable | + +------+ + Reason for Referral Audiology Services (Routine) +--------+--------+ + + + + | Status | Reason | Specialty | Diagnoses / | Referred By | Referred To | | | | | Procedures | Contact | Contact | +--------+--------+ + + + + | Closed | | Metal Container Maker | Procedures | [place], | Ent | | | | | CONSULT TO | MD Jhoan | Audiology Ppv | | | | | ENT | [facility] | [address] | | | | | AUDIOLOGY | Otolaryngolo | [address] | | | | | | gy Assoc | [address] | | | | | | [address] | Mailcode: | | | | | | [address] | [address] | | | | | | [place], [place] | Physician's | | | | | | [address] | Pedro | | | | | | Phone: | [place], [place] | | | | | | [phone] | [address] | | | | | | Fax: | Phone: | | | | | | | [phone] | | | | | | | Fax: | | | | | | | [phone] | +--------+--------+ + + + + Reason [...] | (Primary Dx); | | | | [facility] | [address] [place] [address] [address] | OBJECTIVE TINNITUS; | | | | Mailcode: [address] | [address] [place], [place] | CEREBROSPINAL FLUID | | | | Physician's Pavilion | [id number] | OTORRHEA | | | | [place], [place] | (Fax) | | | | | [address] | | | | | | [phone] | | | +--------+---------+ + + + [...] issues. Jhoan Benton M.D., F.A.C.S. Professor and Senior Account Director Chief, Division of Otology/ Neurology/Skull Base Surgery Head and Neck Surgery and Neurosurgery documented in this encoun ter Plan of Treatment + + +--------+ + + | Name | Type | Priori | Associated Diagnoses | Order Schedule | | | | ty | | | + + +--------+ + + | [place] EAR MICROSCOPY | Procedures | Routin | [...]
--- OUTSIDE RECORDS SUMMARY | ~2019-03-23 | XMS | Encounter Summary ---
Demographics + + + | Address | [address] | | | [place] [address] | + + + | Home Phone | | + + + | Preferred Language | Unknown | + + + | Marital Status | | + + + | Temple Affiliation | CAT | + + + | Race | White | + + + | Ethnic Group | Not or | + + + Author + + + | Author | [facility] | + + + | Organization | [facility] | + + + | Address | Unknown | + + + | Phone | Unavailable | + + + Support + + +---------+ + | Name | Relationship | Address | Phone | + + +---------+ + | Gerry Moreno | ECON | Unknown | | + + +---------+ + Care Team Providers + +------+ + | Care Roof Cement And Paint Maker Helper Name | Role | Phone | + [...] | | | | | BENIGN | [place], [place] | Mailcode: | | | | | DISEASE [place] | [address] | [address] [facility] | | | | | [place] | Phone: | Hospital | | | | | CT | [phone] | [place], [place] | | | | | SCAN,ORBIT/S | Fax: | [address] | | | | | BELINDA/POST | [phone] | Phone: | | | | | FOSSA/EAR,W/ | | [phone] | | | | | O | | Fax: | | | | | | | [phone] | +--------+--------+ + + + + Reason [...] Road | | | | | | [place], [place] | Mailcode: | | | | | | [address] | [address] | | | | | | Phone: | Physician's | | | | | | [phone] | Pavilion | | | | | | Fax: | [place], [place] | | | | | | [phone] | [address] | | | | | | | Phone: | | | | | | | [phone] | | | | | | | Fax: | | | | | | | [phone] | +--------+--------+ + + + + Encounter [...] | PPV [address] | [facility] | | | | | [facility] | [place], [place] | | | | | Mailcode: [address] | [address] | | | | | Physician's Pavilion | [phone] | | | | | [place], [place] | | | | | | [address] | | | | | | [phone] | | | +--------+---------+ + + + [...] of the num bers below or through [employer]. Your questions can best be answered during business hours at [phone], but you can always reach the [facility] package line relief operator at [phone] to contac t our on-call team. We [...] Surgery Department of Otolaryngology/Head and Neck Surgery [facility] Patient: Nu Moreno Referring Provider: Phoenix [...] Department of Otolaryngology-Head and Neck Surgery [address] [address] tel: [phone] fax: [phone] [email or web address] documented in this encounter Plan of Treatment Not on filedocumented as of this encounter Procedures + +--------+ + + + | Procedure Name | Priori | Date/Time | Associated Diagnosis | Comments | | | ty | | | | + +--------+ + + + | [place] EAR MICROSCOPY | Routin | 04/11/2017 | [...] + + | Performing | Address | City[facility] | Phone Number | | Organization [...]
--- OUTSIDE RECORDS SUMMARY | ~2019-03-23 | XMS | Encounter Summary ---
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 The incision is well healed. Facial nerve is normal. No evidence of any middle ear fluids on the left. No evidence of CSF leak from the nose, the wound, or the ear. Jhoan Benton M.D., F.A.C.S. Ship Engines Operating Engineer Department of Otolaryngology/ Head and Neck Surgery and Department of Neurosurgery [facility] / [id number] / [id number] / [id number] / [id number] cc: Isamar Allen M.D. [address] [place] [address] Electronically signed by Jhoan Benton 03-11-2005 09:06:48 AM documented i n this encounter Plan of Treatment Not on filedocumented as of this encounter Visit Diagnoses Not on filedocumented in this encounter"
--- OUTSIDE RECORDS SUMMARY | ~2019-03-23 | XMS | Encounter Summary ---
Demographics + + + | Address | [address] | | | [place] [address] | + + + | Home Phone [...] Team Providers + +------+ + | Care Pavilion Cutter Name | Role | Phone | [...] as of this encounter Progress Notes Interface, Yard General Car Supervisor In - 05/24/2006 1:07 AM PDTCLINIC [...] of her preoperative appointment. Mike Nix M.D. [facility] / [id number] / [id number] / [id number] / Tdocumented in this encounter Plan of Treatment Not on filedocumented as of this encounter Visit Diagnoses Not on filedocumented in this encounter"
--- OUTSIDE RECORDS SUMMARY | ~2019-03-23 | XMS | Encounter Summary ---
Demographics + + + | Address | [address] | | | [place] [address] | + + + | Home Phone [...] | + + +---------+ + | Gerry oMreno | ECON | Unknown | | + + +---------+ + Care Team Providers + +------+ + | Care Community Fundraiser Name | Role | Phone | + [...] as of this encounter Discharge Summaries Interface, Peer Educator In - 05/23/2005 12:40 AM PDT [id number] 10/15/2004 [id number] IRGO MENDOZA Admission Date: 10/12/2004 Discharge Date: 10/15/2004 [...] dictated. Isamar Zacarias Jr., M.D. VW/x90 [id number] Electronically signed by Omar Pratt 10-22-2004 02:26:41 PM documented i n this encounter Plan of Treatment Not on filedocumented as of this encounter Visit Diagnoses Not on filedocumented in this encounter"
--- OUTSIDE RECORDS SUMMARY | ~2019-03-23 | XMS | Encounter Summary ---
Demographics + + + | Address | [address] | | | [place] [address] | + + + | Home Phone [...] Team Providers + +------+ + | Care Bag Machine Adjuster Name | Role | Phone | + [...] | CONSULT TO | Cory Garcia | [address] | | | | | ENT OTOLOGY | [place], [place] | Mailcode: | | | | | | [address] | [address] | | | | | | Phone: | Physician's | | | | | | [phone] | Pavilion | | | | | | Fax: | [place], [place] | | | | | | [phone] | [address] | | | | | | | Phone: | | | | | | | [phone] | | | | | | | Fax: | | | | | | | [phone] | +--------+--------+ + + + + Encounter [...] [address] | | | | | [facility] | [place] [address] | | | | | Mailcode: [address] | [phone] | | | | | Physicianjess Vasquez | | | | | | [place], [place] | | | | | | [address] | | | | | | [phone] | | | +--------+ + + + [...] Notes Elis Kelly - 05/21/2016 3:03 PM [facility] ENT Audiology Clinic NAME: Nu Moreno Date of : 1965 MR#: [id number] Primary Care Provider: JYOTHI Mejía Referral Source: Phoenix Bright MD [address] [place] [address] Nelson: Loyda Date of Service: 05/21/2016 OTOLOGY [...] sloping to a moderate sensorineural hearing loss 7382-1332 Hz. A speech recept ion threshold was obtained at 25 dB HL and is in good agreement with responses to pure-tone stimuli. Word recognition ability was 100% when words were presented at a comfortable level of 96% dB HL, with contralateral masking in the opposite ear. Left Ear: A mild sensorineural hearing loss 250-2000 Hz sloping to a moderate sensorineur al hearing loss 0206-3518 Hz. A speech part time receptionist threshold was obtained at 55 dB HL and is in good agreement with responses to pure-tone stimuli. Word recognition ability was 100% wh en words were presented at a comfortable level of 65 dB HL, with contralateral masking in th e opposite ear. [facility] for details. Please see otology note for appointment detail including treatment/management and recommend ations. Carmel Christensen Audiology Ocean Biologist Manuela Shetty CCC-A documented in thi s encounter Plan of Treatment Not on filedocumented as of this encounter Procedures + +--------+ + + + | Procedure Name | Priori | Date/Time | Associated Diagnosis | Comments | | | ty | | | | + +--------+ + + + | CO | Routin | 05/28/2016 | Mixed hearing loss | | | TYMPANOMETRY&REFLEX | e | 9:13 AM | | | | THRESH | | PDT | | | + +--------+ + + + | CO COMPREHENSIVE | Routin | 05/28/2016 | Mixed [...]
--- OUTSIDE RECORDS SUMMARY | ~2019-03-23 | XMS | Encounter Summary ---
Demographics + + + | Address | [address] | | | [place] [address] | + + + | Home Phone [...] Team Providers + +------+ + | Care Event Host Name | Role | Phone | + [...] as of this encounter Progress Notes Interface, Barrel Assembler In - 05/23/2005 9:03 AM PDT [id number] RIGO MENDOZA [facility] Date: 09/25/2004 Clinic: A full PAR was held. They understand and wish to proceed. Permit was signed. Jhoan Benton M.D., F.A.C.S. Physical Chemistry Teacher Department of Otolaryngology/ Head and Neck Surgery and Department of Neurosurgery [facility] [place] / [id number] / [id number] / [id number] / [id number] documented i n this encounter Plan of Treatment Not on filedocumented as of this encounter Visit Diagnoses Not on filedocumented in this encounter"
--- OUTSIDE RECORDS SUMMARY | ~2019-03-23 | XMS | Encounter Summary ---
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 She has some occasional tenderness in her right temporomandibular joints and right temporalis muscles. Her incision is well healed. She has no complaints of fluid leaking from her nose and no complaints of pulsating sounds in her ear and no complaints of hearing loss. Physical Examination: Today, her incision is well healed. No masses. Her middle ears appear clear, fully aerated as viewed under the high-power operating microscope. Positive 256 fork is present bilaterally. No masses are visible in the middle ear under the microscope either. Overall doing extremely well and happy with her progress. I will see her back in 6-12 months, p.r.n. any problems. Jhoan Benton M.D., F.A.C.S. Production Technologist Department of Otolaryngology/ Head and Neck Surgery and Department of Neurosurgery [facility] [place] / [id number] / [id number] / [id number] / Tdocumented in this encounter Plan of Treatment Not on filedocumented as of this encounter Visit Diagnoses Not on filedocumented in this encounter"
--- OUTSIDE RECORDS SUMMARY | ~2019-03-23 | XMS | Encounter Summary ---
Demographics + + + | Address | [address] | | | [place] [address] | + + + | Home Phone [...] Team Providers + +------+ + | Care Autism Specialist Name | Role | Phone | + [...] as of this encounter Progress Notes Interface, Chef De Cuisine In - 05/22/2005 11:15 PM PDTClinic Date: [...] p.r.n. any problems. Jhoan Benton M.D., F.A.C.S. Stencil Maker Department of Otolaryngology/ Head and Neck Surgery and Department of Neurosurgery [facility] / [id number] / [id number] / [id number] / Tdocumented in this encounter Plan of Treatment Not on filedocumented as of this encounter Visit Diagnoses Not on filedocumented in this encounter"
--- OUTSIDE RECORDS SUMMARY | ~2019-03-23 | XMS | Encounter Summary ---
Demographics + + + | Address | [address] | | | [place] [address] | + + + | Home Phone [...] Team Providers + +------+ + | Care Clay House Worker Name | Role | Phone | [...] as of this encounter Progress Notes Interface, Television Repairer In - 04/27/2006 1:11 AM PDTCLINIC DATE: 11/14/2002 I saw the patient in conjunction with resident regarding her CSF leak on the right. Reviewed the films. My findings are contained within the resident note. I performed the independent history and physical examination, and examined the films myself. Jhoan Benton M.D., F.A.C.S. Honing Machine Operator Production Department of Otolaryngology/ Head and Neck Surgery and Department of Neurosurgery [facility] / [id number] / [id number] / [id number] / Tdocumented in this encounter Plan of Treatment Not on filedocumented as of this encounter Visit Diagnoses Not on filedocumented in this encounter"
--- OUTSIDE RECORDS SUMMARY | ~2019-03-23 | XMS | Encounter Summary ---
Demographics + + + | Address | [address] | | | [place] [address] | + + + | Home Phone [...] Team Providers + +------+ + | Care Exercise Science Internship Name | Role | Phone | + [...] Medical Facility | | | | | [facility] | [place], [place] | | | | | Mailcode: [address] | [address] | | | | | Physician[facility]iahs Pedro | [phone] | | | | | [place], [place] | | | | | | [address] | | | | | | [phone] | | | +--------+--------+ + + + [...]
--- OUTSIDE RECORDS SUMMARY | ~2019-03-23 | XMS | Encounter Summary ---
Demographics + + + | Address | [address] | | | [place] [address] | + + + | Home Phone [...] Team Providers + +------+ + | Care Dockmaster Name | Role | Phone | + [...] as of this encounter Progress Notes Interface, Community Coordinator For High School In - 05/24/2005 9:05 AM PDT [id number] RIGO MENDOZA [facility] Date: 04/13/2005 Clinic: Otology Neurotology Clinic Subjective: [...] Mike Ken M.D. Jhoan Benton M.D., F.A.C.S. Ram Press Operator Department of Otolaryngology/ Head and Neck Surgery and Department of Neurosurgery / [place] [id number] / [id number] / [id number] / [id number] Electronically signed by Jhoan Benton 05-19-2005 01:13:44 PM documented i n this encounter Plan of Treatment Not on filedocumented as of this encounter Visit Diagnoses Not on filedocumented in this encounter"
--- OUTSIDE RECORDS SUMMARY | ~2019-03-23 | XMS | Encounter Summary ---
Demographics + + + | Address | [address] | | | [place] [address] | + + + | Home Phone | | + + + | Preferred Language | Unknown | + + + | Marital Status | | + + + | Anabaptist Affiliation | CAT | + + + | Race | White | + + + | Ethnic Group | Not or | + + + Author + + + | Author | [facility] | + + + | Organization | [facility] | + + + | Address | Unknown | + + + | Phone | Unavailable | + + + Support + + +---------+ + | Name | Relationship | Address | Phone | + + +---------+ + | Gerry Moreno | ECON | Unknown | | + + +---------+ + Care Team Providers + +------+ + | Care Relay Man Name | Role | Phone | + [...] Otolaryngology Assoc | | | | | [facility] | [address] [place] [address] | | | | | Mailcode: [address] | [address] [place], [place] | | | | | Physician[facility] | [address] | | | | | [place], [place] | | | | | | [address] | | | | | | [phone] | | | +--------+ + + + [...]
== END ==
LOC: ED 20:10
DX: S39.012A Strain of muscle, fascia and tendon of lower back, initial encounter (principal); I10 Essential (primary) hypertension; E03.9 Hypothyroidism, unspecified; F41.9 Anxiety disorder, unspecified; Z88.1 Allergy status to other antibiotic agents; Z88.2 Allergy status to sulfonamides; Z79.899 Other long term (current) drug therapy; W18.30XA Fall on same level, unspecified, initial encounter
CPT/HCPCS: 72040; 72070; 72100; 72220; 99283

== ENCOUNTER 2021-12-15 12:49 | Day surgery (SDC) | payer OTHER ==
[~2021-12-15] VITALS: Ht 162.6 cm; Wt 117.2 kg
[~2021-12-15 12:49] MED LIST changes: +OMEPRAZOLE20 MG PO
[2021-12-15] MEDS ORDERED: XANAX0.5 MG PO (13:20)
--- NOTE | 2021-12-15 15:15 | NUR ---
12/15/21 1515 Ava Hendrix 1501-PATIENT ARRIVED TO PACU ON 2L NC RR EVEN. PATIENT REACTIVE TO VERBAL STIMULI DENIES PAIN OR NAUSEA. ABDOMEN ROUND AND SOFT. IVF INFUSING.
--- NOTE | 2021-12-16 20:48 | PATH ---
[facility] [address] [place], [place] [address] Signed SPECIMEN(S): A DUODENAL BIOPSY SPECIMEN(S): B ANTRUM/PYLORUS BIOPSY SPECIMEN(S): C LOW ESOPHAGEAL BIOPSY SPECIMEN(S): D MID ESOPHAGEAL BIOPSY SPECIMEN SOURCE: A. DUODENAL BIOPSY B. ANTRUM/PYLORUS BIOPSY C. LOW ESOPHAGEAL BIOPSY D. MID ESOPHAGEAL BIOPSY CLINICAL HISTORY: Colonoscopy/EGD. Pre: GERD, diarrhea, fecal urgency. Post: Hiatal hernia, normal colon. FINAL PATHOLOGIC DIAGNOSIS: A. Duodenum, biopsy: - Duodenal mucosa with no histopathologic abnormality. - Negative for increased intraepithelial lymphocytes or villous blunting. - Negative for dysplasia or malignancy. B. Stomach, antrum/pylorus, biopsy: - Antral mucosa with chronic, inactive gastritis and focal reactive gastropathy. - Negative for Helicobacter organisms (HE and IHC). - Negative for dysplasia or malignancy. C. Esophagus, lower, biopsy: - Squamous mucosa with minimal chronic inflammation and reactive epithelial changes. - Negative for intestinal metaplasia, dysplasia, or malignancy. D. Esophagus, mid, biopsy: - Squamous mucosa with no significant histopathologic abnormality. - Negative for increased intraepithelial eosinophils. - Negative for intestinal metaplasia, dysplasia, or malignancy. COMMENT: Regarding specimen B: An H. pylori immunohistochemical stain (with appropriately staining controls) is negative for Helicobacter organisms. NAL:cml:C2NR MICROSCOPIC EXAMINATION: Histologic sections of all submitted blocks are examined by light microscopy. PATIENT NAME: KELLY SIERRA PATHOLOGY DATE OF : 67 REPORT #: [id number] PHYSICIAN: ALEENA BOTELLO PCP: CECILIA LANGE PAC REPORT IS CONFIDENTIAL AND NOT TO BE RELEASED WITHOUT AUTHORIZATION [facility] [address] [place], [place] [address] Signed These findings, together with the gross examination, support the pathologic diagnosis. GROSS DESCRIPTION: Four specimens are received in four containers labeled with "CM." A. The specimen, labeled "CM, 1," and designated on the requisition "duodenum biopsy," is received in formalin and consists of two fragments of pink-hendricks tissue (0.2-0.3 cm in greatest dimension). The specimen is submitted entirely in cassette (A1). B. The specimen, labeled "CM, 2," and designated on the requisition "antrum/pylorus biopsy," is received in formalin and consists of one fragment of pink-hendricks tissue (0.4 cm in greatest dimension). The specimen is submitted entirely in cassette (B1). C. The specimen, labeled "CM, 3," and designated on the requisition "lower esophagus biopsy," is received in formalin and consists of one fragment of white-hendricks tissue (0.4 cm in greatest dimension). The specimen is submitted entirely in cassette (C1). D. The specimen, labeled "CM, 4," and designated on the requisition "middle esophagus biopsy," is received in formalin and consists of one fragment of white-hendricks tissue (0.3 cm in greatest dimension). The specimen is submitted entirely in cassette (D1). AC (under the direct supervision of a pathologist) The Gross Description was prepared using a voice recognition system. The report was reviewed for accuracy; however, sound-alike word errors, addition and/or deletions may occur. If there is any question about this report, please contact Client Services. ADDITIONAL NOTES: Immunohistochemical and/or in situ hybridization studies were performed on this case with the appropriate positive controls that react as expected. This test was developed and its performance characteristics determined by [facility]. It has not been cleared or approved by the U.S. Food and Drug Administration. The FDA has determined that such clearance or approval is not necessary. This test is used for clinical purposes. It should not be regarded as investigational or for research. [facility] is certified under the Clinical Laboratory Improvement Amendments of 1988 (CLIA) as qualified to perform high complexity clinical laboratory testing. This assay has not been validated for specimens that have been decalcified. The technical component was performed by [facility], [address] [place] [address] Krishna, PATIENT NAME: KELLY SIERRA PATHOLOGY DATE OF : 67 REPORT #: [id number] PHYSICIAN: ALEENA BOTELLO PCP: CECILIA LANGE PAC REPORT IS CONFIDENTIAL AND NOT TO BE RELEASED WITHOUT AUTHORIZATION [facility] [address] [place], [place] [address] Signed JODIE Morin [id number] ([facility]: Sandra Borja MD; CLIA# [id number]). Professional interpretation [facility], [address] [address] (CLIA# [id number]). PERFORMING LABORATORY: The technical component was performed by [facility], [address] [place] [id number] ([facility]: Sandra Borja MD; CLIA# [id number]). Professional interpretation was performed by [facility], [facility] [place] [facility], [address] [place] [address] (CLIA# [id number]). Diagnostician: Maegan Terrell MD Pathologist Electronically Signed 12/16/2021 Copies: ~ PATIENT NAME: KELLY SIERRA PATHOLOGY DATE OF : 67 REPORT #: [id number] PHYSICIAN: ALEENA PATHOLOGY PCP: CECILIA LANGE PAC REPORT IS CONFIDENTIAL AND NOT TO BE RELEASED WITHOUT AUTHORIZATION
--- NOTE | 2021-12-17 13:40 | OR ---
[facility] [address] [place], [place] [address] Signed DATE OF OPERATION: 12/15/2021 SURGEON: Maria Luisa Rao MD PREOPERATIVE DIAGNOSES: 1. Gastroesophageal reflux. 2. Morbid obesity. BMI greater than 44. 3. Episodic rectal bleeding. POSTOPERATIVE DIAGNOSES: 1. Hiatal hernia with minimal distal esophagitis. 2. Minimal internal hemorrhoidal changes. PROCEDURES: 1. Esophagogastroduodenoscopy with biopsy. 2. Total colonoscopy to cecum (prolonged and difficult). ANESTHESIA: Intravenous sedation; fentanyl 200 mcg and Versed 11 mg total. INDICATION: This morbidly obese 44.3, BMI white woman is a patient of Dr. Cecilia Chahal. She has had gastroesophageal reflux symptoms, which are variably benefitted by PPI medication. She is referred for consideration of upper endoscopy as well as colonoscopy. Her last colonoscopy was in 2016 in [place]. She has no family history of colon cancer. She is admitted to undergo upper endoscopy and colonoscopy. She understands the risk of bleeding, infection, and perforation. FINDINGS: Upper endoscopy showed minimal distal esophagitis and a very poor flap valve hiatal hernia. Stomach and duodenum were normal. CLOtest was negative. On colonoscopy, the prep was good. Passage beyond the rectosigmoid was extremely challenging, but ultimately accomplished safely. Passage was optimized by the supine position. Complete colonoscopy was undertaken. There was no sign of polyps, diverticular formation, colitis, or cancer. She did have some internal hemorrhoidal changes. DESCRIPTION OF PROCEDURE: The patient was brought to the endoscopy suite and placed in the lateral decubitus Electronically Signed By: MARIA LUISA RAO MD 12/17/21 1340 PATIENT NAME: KELLY SIERRA OPERATIVE REPORT DATE OF : 67 REPORT #: [id number] PHYSICIAN: MARIA LUISA RAO MD PCP: CECILIA CHAHAL PAC REPORT IS CONFIDENTIAL AND NOT TO BE RELEASED WITHOUT AUTHORIZATION [facility] [address] [place], [place] [address] Signed position, given intravenous sedation to the point of slurred speech and nystagmus. A full cardiopulmonary monitoring after hypopharyngeal lidocaine anesthesia administered. A bite block was placed. An Olympus video upper endoscope was passed in the hypopharynx. The vocal cords were normal. Scope was then passed to the esophagus without problem. The distal portion appeared minimally inflamed. There was no evidence of Mccormick's epithelium, stricture or neoplasm. Scope was passed to the stomach, which was insufflated with air. Rugal folds were normal as was the pylorus. The scope was passed through the pylorus into the duodenum, which was normal. Biopsies were obtained there to assess for celiac disease. The scope was withdrawn. A biopsy was then taken of the antrum for both LARS and pathologic testing. Retroflexed view was undertaken showing a small to moderate-size hiatal hernia upon retroflex withdrawal of the scope. The scope was straightened and biopsies then taken of the normal-appearing distal esophageal area as well as the mid esophagus. The scope was then removed. Plans were then made for colonoscopy. Digital examination was undertaken after additional sedation was given, which was normal. An Olympus video colonoscope was passed in the rectum and manipulated into the sigmoid. Passage beyond the sigmoid initially was quite difficult despite various maneuvers including abdominal wall stabilization. Mindful that perhaps the scope angulation ability was not optimal. The scope was withdrawn and exchanged for another scope when similar findings were encountered. Many additional maneuvers were undertaken as well as additional sedation given, not quite allowing for passage beyond the sigmoid. As a last effort, the patient was placed in a supine position where although still challenging, the scope was ultimately passed beyond the sigmoid. Passage beyond this was relatively straightforward ultimately passed into the cecum itself. The ileocecal valve, appendiceal orifice were normal. Scope was withdrawn. Examination throughout showed no sign of abnormality. The area of angulation deformity had no sign of stricture proper and there were no obvious diverticula. Further withdrawal showed some internal hemorrhoids upon retroflexed view. Scope was removed and the patient was taken to the recovery room in good condition. CONCLUDING DIAGNOSIS: Gastroesophageal reflux. She should stay on PPI medication. She is not a candidate for operative intervention given her extreme obesity and BMI of 44.3. Efforts at weight loss would be most optimal to improve her reflux problem at this time. As regards to rectal bleeding most likely related to hemorrhoidal changes. Would not recommend repeat colonoscopy for 10 years unless symptoms should change. Recommend high-fiber diet. If persistent anorectal bleeding, consideration will be made for hemorrhoidal banding in the office. She will return to the ongoing care of JYOTHI Mcfadden. Electronically Signed By: MARIA LUISA RAO MD 12/17/21 8439 PATIENT NAME: KELLY SIERRA OPERATIVE REPORT DATE OF : 67 REPORT #: [id number] PHYSICIAN: MARIA LUISA RAO MD PCP: CECILIA CHAHAL PAC REPORT IS CONFIDENTIAL AND NOT TO BE RELEASED WITHOUT AUTHORIZATION [address] [address] Signed MD RUDOLPH Sorensen/MODL /[id number] cc: Cecilia Chahal PA-C Copies: CECILIA CHAHAL ~ Electronically Signed By: MARIA LUISA RAO MD 12/17/21 1340 PATIENT NAME: RIGOKELLY LEE OPERATIVE REPORT DATE OF : 67 REPORT #: [id number] PHYSICIAN: MARIA LUISA RAO MD PCP: CECILIA CHAHAL REPORT IS CONFIDENTIAL AND NOT TO BE RELEASED WITHOUT AUTHORIZATION
== END 2021-12-15 16:27 | disposition home or self-care (01) ==
LOC: OPS 12:49 → DS 12:49 → OPS 14:00
PROVIDERS: ATTEND Surgery
PROC: 0DB28ZX Excision of Middle Esophagus, Via Natural or Artificial Opening Endoscopic, Diagnostic (ICD-10-PCS; 2021-12-15)
PROC: 0DB38ZX Excision of Lower Esophagus, Via Natural or Artificial Opening Endoscopic, Diagnostic (ICD-10-PCS; 2021-12-15)
PROC: 0DJD8ZZ Inspection of Lower Intestinal Tract, Via Natural or Artificial Opening Endoscopic (ICD-10-PCS; 2021-12-15)
PROC: 0DB98ZX Excision of Duodenum, Via Natural or Artificial Opening Endoscopic, Diagnostic (ICD-10-PCS; principal; 2021-12-15 14:00)
PROC: 0DB68ZX Excision of Stomach, Via Natural or Artificial Opening Endoscopic, Diagnostic (ICD-10-PCS; 2021-12-15 14:00)
DX: K62.5 Hemorrhage of anus and rectum (principal); K29.50 Unspecified chronic gastritis without bleeding; K31.9 Disease of stomach and duodenum, unspecified; K21.00 Gastro-esophageal reflux disease with esophagitis, without bleeding; E66.01 Morbid (severe) obesity due to excess calories; Z68.41 Body mass index [BMI] 40.0-44.9, adult; K64.8 Other hemorrhoids; R19.7 Diarrhea, unspecified; R15.2 Fecal urgency; F32.A Depression, unspecified; Z90.49 Acquired absence of other specified parts of digestive tract; Z98.890 Other specified postprocedural states; I10 Essential (primary) hypertension; E03.9 Hypothyroidism, unspecified; K44.9 Diaphragmatic hernia without obstruction or gangrene; Z20.822 Contact with and (suspected) exposure to COVID-19
CPT/HCPCS: 99153; G0500; J2250; J3010; J7121

== ENCOUNTER 2024-08-10 11:39 | Emergency (ER) | payer OTHER ==
[~2024-08-10] VITALS: Ht 162.6 cm; Wt 114.3 kg
[~2024-08-10 11:39] MED LIST changes: +XANAX0.5 MG PO
[2024-08-10 12:59] LABS: BILIRUBIN, URINE NEGATIVE (negative); BLOOD/HGB, URINE NEGATIVE (Negative); KETONE, URINE NEGATIVE (Negative); LEUK ESTERASE, URINE NEGATIVE (negative); NITRITE, URINE NEGATIVE (negative)
[2024-08-10 13:08] LABS: MARIJUANA (THC), UR NEGATIVE (NEGATIVE)
[2024-08-10 13:09] LABS: AMPHETAMINES, UR NEGATIVE (NEGATIVE); BARBITURATES, UR NEGATIVE (NEGATIVE); BENZODIAZEPINES, UR NEGATIVE (NEGATIVE); BUPRENORPHINE,UR NEGATIVE (NEGATIVE); COCAINE, UR NEGATIVE (NEGATIVE); MDMA, UR NEGATIVE (NEGATIVE); METHADONE, UR NEGATIVE (NEGATIVE); METHAMPHETAMINE, UR NEGATIVE (NEGATIVE); OPIATES, UR NEGATIVE (NEGATIVE); OXYCODONE, UR NEGATIVE (NEGATIVE); PHENCYCLIDINE, UR NEGATIVE (NEGATIVE); TRICYCLIC ANTIDEPRESSANT, UR NEGATIVE (NEGATIVE)
[2024-08-10 13:15] LABS: EPITHELIAL CELLS, URINE SQUAMOUS 2+ /lpf (0-1+); RED BLOOD CELLS, URINE 0-1 /hpf (0-5)
[2024-08-10 13:16] LABS: BACTERIA, URINE 1+ /hpf (negative); CASTS, URINE NONE SEEN \\lpf; COLLECTION TYPE, URINE CLEAN CATCH; CRYSTALS, URINE NONE SEEN (0-1+); REFLEX CULTURE, URINE No (No)
[2024-08-10] MEDS ORDERED: ALPRAZolam 0.5 MG TAB PO ONE (13:30)
[2024-08-10] MEDS ORDERED: ALPRAZOLAM0.5 MG PO (15:04)
[2024-08-10 15:12] VITALS: BP 113/82
== END 2024-08-10 15:12 | disposition home or self-care (01) ==
LOC: ED 11:39
PROVIDERS: Emergency Medicine
DX: F41.1 Generalized anxiety disorder (principal); F32.9 Major depressive disorder, single episode, unspecified; I10 Essential (primary) hypertension; E03.9 Hypothyroidism, unspecified; Z88.2 Allergy status to sulfonamides; Z91.030 Bee allergy status; Z88.1 Allergy status to other antibiotic agents; Z79.890 Hormone replacement therapy; Z79.899 Other long term (current) drug therapy
CPT/HCPCS: 80307; 81001; 99283

== ENCOUNTER 2024-08-13 13:28 | Emergency (ER) | payer OTHER ==
[~2024-08-13] VITALS: Ht 162.6 cm; Wt 114.2 kg
[~2024-08-13 13:28] MED LIST changes: +ALPRAZOLAM0.5 MG PO
--- OUTSIDE RECORDS SUMMARY | 2024-08-13 13:35 | XMS ---
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 Danish VISIT COUNT (12 MO.) 2 [facility] TOTAL 2 NOTE: Visits indicate total known visits. ED/UCC VISIT TRACKING (12 MO.) 08/13/2024 13:29 [facility] [place] TYPE: Emergency COMPLAINT: - SUICIDAL IDEATIONS 08/10/2024 11:39 [facility] [place] TYPE: Emergency COMPLAINT: - ANXIETY INPATIENT VISIT TRACKING (12 MO.) No inpatient visits to display in this time frame [email or web address]
[2024-08-13] MEDS ORDERED: PAROXETINE HCL10 MG PO (13:41)
[2024-08-13] MEDS ORDERED: LOSARTAN POTASS25 MG PO (13:41)
[2024-08-13] MEDS ORDERED: DICYCLOMINE HCL20 MG PO (13:42)
[2024-08-13 14:18] LABS: BILIRUBIN, URINE NEGATIVE (negative); BLOOD/HGB, URINE NEGATIVE (Negative); KETONE, URINE NEGATIVE (Negative); LEUK ESTERASE, URINE NEGATIVE (negative); NITRITE, URINE NEGATIVE (negative); PH, URINE 6.5 (5-7)
[2024-08-13 14:26] LABS: BASOPHILS 0.3 % (0-2); EOSINOPHILS 1.2 % (0-6); HEMATOCRIT 44.5 % (35.0-50.0); HEMOGLOBIN 15.1 g/dL (12.0-18.0); MCH 33.5 (27-36); MCHC 33.9 g/dl (30-36); MCV 98.8 fl (81-99); MONOCYTES 7.5 % (0-12); PLATELET COUNT 218 K/uL (140-440); RDW 13.8 (10.5-15.0)
[2024-08-13 14:41] LABS: AMPHETAMINES, URINE NEGATIVE (NEGATIVE); BARBITURATES, URINE NEGATIVE (NEGATIVE); BENZODIAZEPINE, URINE POSITIVE (NEGATIVE); BUPRENORPHINE, URINE NEGATIVE (NEGATIVE); CANNABINOID, URINE NEGATIVE (NEGATIVE); COCAINE, URINE NEGATIVE (NEGATIVE); ECSTASY, URINE NEGATIVE (NEGATIVE); FENTANYL, URINE NEGATIVE (NEGATIVE); METHADONE, URINE NEGATIVE (NEGATIVE); OPIATES, URINE NEGATIVE (NEGATIVE); OXYCODONE, URINE NEGATIVE (NEGATIVE); PHENCYCLIDINE, URINE NEGATIVE (NEGATIVE)
[2024-08-13 14:50] LABS: ACETAMINOPHEN 0 ug/mL (10-30); ALBUMIN 3.9 g/dL (3.4-5.0); ALBUMIN/GLOBULIN RATIO 1.05 (1.1-2.4); ALCOHOL, MEDICAL <3 ng/dL (<3); ALKALINE PHOSPHATASE 137 U/L (46-116); ALT (SGPT) 32 U/L (14-59); ANION GAP 14.1 (7-21); AST (SGOT) 16 U/L (15-37); BILIRUBIN, TOTAL 0.8 ng/dL (0.2-1.0); BUN/CREATININE RATIO 10.84 (6.0-28.6); CALCIUM 9.7 mg/dL (8.5-10.1); CARBON DIOXIDE 28 mmol/L (21-32); CHLORIDE 102 mmol/L (98-107); CREATININE, SERUM 0.83 mg/dL (0.55-1.02); GLOMERULAR FILTRATION RATE,EST 82 mL/min (>60); POTASSIUM 4.1 mmol/L (3.5-5.1); PROTEIN, TOTAL 7.6 g/dL (6.4-8.2); SALICYLATE 0.9 mg/dL (2.8-20.0); TSH, 3RD GENERATION 1.939 uIU/mL (0.358-3.740); UREA NITROGEN 9 mg/dL (7-18)
[2024-08-13] MEDS ORDERED: ALPRAZolam 0.25 MG TAB.RAPDIS PO ONE (15:15)
[2024-08-13] MEDS ORDERED: SIMETHICONE 125 MG TABLET CHEWABLE PO ONE (20:30)
[2024-08-13] MEDS ORDERED: ALPRAZolam 0.5 MG TAB PO SCH (21:27)
[2024-08-13] MEDS ORDERED: DICYCLOMINE HCL 10 MG CAP PO PRN (21:30)
[2024-08-13] MEDS ORDERED: ACETAMINOPHEN 500 MG TAB PO ONE (23:15)
[2024-08-14] MEDS ORDERED: LEVOTHYROXINE SODIUM 112 MCG TAB PO SCH (07:00)
[2024-08-14] MEDS ORDERED: metFORMIN HCL 500 MG TAB PO SCH (08:00)
[2024-08-14 08:37] VITALS: BP 130/94
[2024-08-14] MEDS ORDERED: LOSARTAN POTASSIUM 25 MG TAB PO SCH (09:00)
[2024-08-14] MEDS ORDERED: DULOXETINE HCL 30 MG CAP PO SCH (09:00)
[2024-08-14] MEDS ORDERED: PARoxetine HCL 10 MG TAB PO SCH (09:00)
[2024-08-14] MEDS ORDERED: lisinopriL 10 MG TAB PO SCH (09:00)
--- NOTE | 2024-08-14 20:30 | EKG ---
[facility] [address] [facility] [place] [address] Signed Normal sinus rhythm Inferior infarct , age undetermined Abnormal ECG No previous ECGs available Confirmed by Constantine Hylton MD ([id number]) on 08/14/2024 8:29:51 PM Electronically Signed By: CONSTANTINE HYLTON MD 08/14/24 2030 PATIENT NAME: KELLY SIERRA ROMEO Electrocardiogram DATE OF : 67 PHYSICIAN: CONSTANTINE HYLTON MD REPORT #: [id number] REPORT IS CONFIDENTIAL AND NOT TO BE RELEASED WITHOUT AUTHORIZATION
== END 2024-08-14 08:36 ==
LOC: ED 13:28
PROVIDERS: Emergency Medicine
DX: Z00.8 Encounter for other general examination (principal); R45.851 Suicidal ideations; Z88.2 Allergy status to sulfonamides; Z91.030 Bee allergy status; Z88.1 Allergy status to other antibiotic agents; Z79.899 Other long term (current) drug therapy; Z79.890 Hormone replacement therapy; Z11.52 Encounter for screening for COVID-19
CPT/HCPCS: 36415; 80053; 80307; 81003; 84443; 85025; 93005; 93010; 99285; A9270; G0480; U0002

== ENCOUNTER 2024-08-27 09:01 | Emergency (ER) | payer OTHER ==
[~2024-08-27] VITALS: Ht 162.6 cm; Wt 110.0 kg
[~2024-08-27 09:01] MED LIST changes: +DICYCLOMINE HCL20 MG PO; +LOSARTAN POTASS25 MG PO; +PAROXETINE HCL10 MG PO
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
[2024-08-27 09:41] LABS: BASOPHILS 0.4 % (0-2); HEMATOCRIT 41.7 % (35.0-50.0); HEMOGLOBIN 14.4 g/dL (12.0-18.0); LYMPHOCYTES 21.8 % (24-44); MCH 33.8 (27-36); MCHC 34.6 g/dl (30-36); MCV 97.7 fl (81-99); MONOCYTES 8.7 % (0-12); NEUTROPHILS 67.1 % (39-80); PLATELET COUNT 207 K/uL (140-440); RBC 4.27 M/ul (4.3-5.7); RDW 13.5 (10.5-15.0)
[2024-08-27 09:56] LABS: ACETAMINOPHEN 0 ug/mL (10-30); ALBUMIN 3.7 g/dL (3.4-5.0); ALBUMIN/GLOBULIN RATIO 1.03 (1.1-2.4); ALCOHOL, MEDICAL <3 ng/dL (<3); ALKALINE PHOSPHATASE 112 U/L (46-116); ALT (SGPT) 24 U/L (14-59); ANION GAP 15.3 (7-21); AST (SGOT) 14 U/L (15-37); BILIRUBIN, TOTAL 0.7 ng/dL (0.2-1.0); BUN/CREATININE RATIO 10.95 (6.0-28.6); CALCIUM 9.4 mg/dL (8.5-10.1); CARBON DIOXIDE 29 mmol/L (21-32); CHLORIDE 100 mmol/L (98-107); CREATININE, SERUM 0.73 mg/dL (0.55-1.02); GLOMERULAR FILTRATION RATE,EST 95 mL/min (>60); POTASSIUM 3.3 mmol/L (3.5-5.1); PROTEIN, TOTAL 7.3 g/dL (6.4-8.2); SALICYLATE 0.6 mg/dL (2.8-20.0); UREA NITROGEN 8 mg/dL (7-18)
[2024-08-27 10:03] LABS: BILIRUBIN, URINE NEGATIVE (negative); BLOOD/HGB, URINE NEGATIVE (Negative); KETONE, URINE NEGATIVE (Negative); LEUK ESTERASE, URINE NEGATIVE (negative); NITRITE, URINE NEGATIVE (negative)
[2024-08-27 10:16] LABS: TSH, 3RD GENERATION 0.793 uIU/mL (0.358-3.740)
[2024-08-27 10:21] LABS: AMPHETAMINES, URINE NEGATIVE (NEGATIVE); BARBITURATES, URINE NEGATIVE (NEGATIVE); BENZODIAZEPINE, URINE POSITIVE (NEGATIVE); BUPRENORPHINE, URINE NEGATIVE (NEGATIVE); CANNABINOID, URINE NEGATIVE (NEGATIVE); COCAINE, URINE NEGATIVE (NEGATIVE); ECSTASY, URINE NEGATIVE (NEGATIVE); FENTANYL, URINE NEGATIVE (NEGATIVE); METHADONE, URINE NEGATIVE (NEGATIVE); OPIATES, URINE NEGATIVE (NEGATIVE); OXYCODONE, URINE NEGATIVE (NEGATIVE); PHENCYCLIDINE, URINE NEGATIVE (NEGATIVE)
[2024-08-27] MEDS ORDERED: BUPROPION XL150 MG PO (10:30)
[2024-08-27] MEDS ORDERED: PROPRANOLOL HCL20 MG PO (10:31)
[2024-08-27] MEDS ORDERED: SERTRALINE HCL50 MG PO (10:31)
[2024-08-27] MEDS ORDERED: GUANFACINE HCL E1 MG PO (10:31)
--- NOTE | 2024-08-27 19:21 | EKG ---
[facility] [address] [facility] [place] [address] Signed Normal sinus rhythm Inferior infarct (cited on or before 13-AUG-2024) Abnormal ECG When compared with ECG of 13-AUG-2024 16:05, No significant change was found Confirmed by Richelle Hylton MD ([id number]) on 08/27/2024 7:20:55 PM Electronically Signed By: RICHELLE HYLTON MD 08/27/241920 PATIENT NAME: KELLY SIERRA Electrocardiogram DATE OF : 67 PHYSICIAN: RICHELLE HYLTON MD REPORT #: [id number] REPORT IS CONFIDENTIAL AND NOT TO BE RELEASED WITHOUT AUTHORIZATION
--- NOTE | 2024-08-27 19:25 | EKG ---
[facility] [address] [facility] [place], [place] [address] Signed Sinus tachycardia Inferior infarct (cited on or before 13-AUG-2024) Abnormal ECG When compared with ECG of 27-AUG-2024 09:19, (Unconfirmed) No significant change was found Confirmed by Constantine Hylton MD ([id number]) on 08/27/2024 7:25:04 PM Electronically Signed By: CONSTANTINE HYLTON MD 08/27/241924 PATIENT NAME: KELLY SIERRA ROMEO Electrocardiogram DATE OF : 67 PHYSICIAN: CONSTANTINE HYLTON MD REPORT #: [id number] REPORT IS CONFIDENTIAL AND NOT TO BE RELEASED WITHOUT AUTHORIZATION
[2024-08-28 15:57] LABS: INFLUENZA B NAA NEGATIVE (NEGATIVE); RESPIRATORY SYNCYTIAL VIR NAA NEGATIVE (NEGATIVE)
[2024-08-28] MEDS ORDERED: MELATONIN 3 MG TAB PO ONE (22:30)
[2024-08-29] MEDS ORDERED: ALPRAZolam 0.5 MG TAB PO PRN (12:30)
[2024-08-29] MEDS ORDERED: ACETAMINOPHEN 500 MG TAB PO ONE (16:30)
[2024-08-30] MEDS ORDERED: LEVOTHYROXINE SODIUM 100 MCG TAB PO SCH (07:00)
[2024-08-30 08:15] VITALS: BP 119/94
[2024-08-30] MEDS ORDERED: PROPRANOLOL HCL 20 MG TAB PO SCH (09:00)
[2024-08-30] MEDS ORDERED: LOSARTAN POTASSIUM 25 MG TAB PO SCH (09:00)
[2024-08-30] MEDS ORDERED: PANTOPRAZOLE SODIUM 40 MG TABEC PO SCH (09:00)
== END 2024-08-30 08:15 ==
LOC: ED 09:01
PROVIDERS: Emergency Medicine
DX: T46.5X2A Poisoning by other antihypertensive drugs, intentional self-harm, initial encounter (principal); T43.292A Poisoning by other antidepressants, intentional self-harm, initial encounter; T43.222A Poisoning by selective serotonin reuptake inhibitors, intentional self-harm, initial encounter; T43.212A Poisoning by selective serotonin and norepinephrine reuptake inhibitors, intentional self-harm, initial encounter; I10 Essential (primary) hypertension; E03.9 Hypothyroidism, unspecified; F41.9 Anxiety disorder, unspecified; Z88.2 Allergy status to sulfonamides; Z91.030 Bee allergy status; Z88.1 Allergy status to other antibiotic agents; Z79.899 Other long term (current) drug therapy; Z79.890 Hormone replacement therapy
CPT/HCPCS: 36415; 51701; 80053; 80307; 81003; 84443; 85025; 87502; 93005; 93010; 99285-25; A9270; G0480; U0002

== ENCOUNTER 2025-07-30 18:40 | Emergency (ER) | payer OTHER ==
[~2025-07-30] VITALS: Ht 162.6 cm; Wt 73.9 kg
[~2025-07-30 18:40] MED LIST changes: +BUPROPION XL150 MG PO; +GUANFACINE HCL E1 MG PO; +PROPRANOLOL HCL20 MG PO; +SERTRALINE HCL50 MG PO
[2025-07-30 19:57] LABS: BASOPHILS 0.3 % (0.1-1.2); EOSINOPHILS 0.3 % (0.7-5.8); LYMPHOCYTES 33.4 % (19.3-51.7); MCH 33.1 PG (25.6-32.2); MCHC 34.9 g/dL (32.2-35.5); MCV 94.8 fL (79.4-94.8); MONOCYTES 13.0 % (4.7-12.5); NEUTROPHILS 52.6 % (34.0-71.1); RBC 4.44 M/uL (3.93-5.22)
[2025-07-30 20:22] LABS: ALCOHOL, MEDICAL <3 ng/dL (<3); ALT (SGPT) 16 U/L (14-59); AST (SGOT) 15 U/L (15-37); GLOMERULAR FILTRATION RATE,EST 62 mL/min (>60); PROTEIN, TOTAL 7.0 g/dL (6.4-8.2); TSH, 3RD GENERATION 62.481 uIU/mL (0.358-3.740); UREA NITROGEN 8 mg/dL (7-18)
[2025-07-30] MEDS ORDERED: ESCITALOPRAM OX20 MG PO (21:04)
[2025-07-30] MEDS ORDERED: ARIPIPRAZOLE5 MG PO (21:05)
[2025-07-30] MEDS ORDERED: REXULTI0.5 MG PO (21:06)
[2025-07-30] MEDS ORDERED: MAGNESIUM SULFATE 2 GM/50 ML BAG IV ONE (22:00)
[2025-07-30] MEDS ORDERED: ACETAMINOPHEN 325 MG TAB PO ONE (22:15)
[2025-07-30] MEDS ORDERED: VENLAFAXINE H37.5 M1 PO (22:33)
[2025-07-30] MEDS ORDERED: DESVENLAFAXINE25 MG PO (22:40)
[2025-07-30] MEDS ORDERED: DESVENLAFAXINE50 M3 PO (22:43)
[2025-07-30] MEDS ORDERED: POTASSIUM CHLORIDE IV SCH (22:45)
[2025-07-30] MEDS ORDERED: LEVOTHYROXINE SODIUM 100 MCG TAB PO ONE (22:45)
[2025-07-30] MEDS ORDERED: SODIUM CHLORIDE 0.9% IV SCH (22:45)
[2025-07-30] MEDS ORDERED: ESCITALOPRAM OX10 MG PO (22:46)
[2025-07-30] MEDS ORDERED: ARIPIPRAZOLE15 MG PO (22:46)
[2025-07-30] MEDS ORDERED: VENLAFAXINE HCL75 M1 PO (22:48)
[2025-07-30] MEDS ORDERED: ZOLPIDEM TARTRATE 5 MG TAB PO ONE (23:45)
[2025-07-31 02:49] LABS: BLOOD/HGB, URINE NEGATIVE (Negative); KETONE, URINE SMALL (Negative); LEUK ESTERASE, URINE SMALL (negative); NITRITE, URINE NEGATIVE (negative)
[2025-07-31 02:55] LABS: EPITHELIAL CELLS, URINE SQUAMOUS 1+ /lpf (0-1+)
[2025-07-31 02:56] LABS: BACTERIA, URINE RARE /hpf (negative); CASTS, URINE NONE SEEN \\lpf; CRYSTALS, URINE NONE SEEN (0-1+); REFLEX CULTURE, URINE Yes (No)
[2025-07-31] MEDS ORDERED: ZOLPIDEM TARTRATE 5 MG TAB ONE (02:57)
[2025-07-31 03:03] LABS: AMPHETAMINES, URINE NEGATIVE (NEGATIVE); BARBITURATES, URINE NEGATIVE (NEGATIVE); BENZODIAZEPINE, URINE NEGATIVE (NEGATIVE); CANNABINOID, URINE NEGATIVE (NEGATIVE); COCAINE, URINE NEGATIVE (NEGATIVE); ECSTASY, URINE NEGATIVE (NEGATIVE); FENTANYL, URINE NEGATIVE (NEGATIVE); METHADONE, URINE NEGATIVE (NEGATIVE); OPIATES, URINE NEGATIVE (NEGATIVE); OXYCODONE, URINE NEGATIVE (NEGATIVE); PHENCYCLIDINE, URINE NEGATIVE (NEGATIVE)
[2025-07-31 05:42] LABS: BASOPHILS 0.5 % (0.1-1.2); EOSINOPHILS 0.9 % (0.7-5.8); LYMPHOCYTES 46.3 % (19.3-51.7); MCH 33.3 PG (25.6-32.2); MCHC 34.7 g/dL (32.2-35.5); MCV 95.7 fL (79.4-94.8); MONOCYTES 10.0 % (4.7-12.5); NEUTROPHILS 42.1 % (34.0-71.1); RBC 4.21 M/uL (3.93-5.22)
[2025-07-31 05:57] LABS: ALT (SGPT) 15.0 U/L (14-59); AST (SGOT) 16.0 U/L (15-37); GLOMERULAR FILTRATION RATE,EST 75.0 mL/min (>60); PROTEIN, TOTAL 6.5 g/dL (6.4-8.2); UREA NITROGEN 8.0 mg/dL (7-18)
[2025-07-31] MEDS ORDERED: MACROBID 100 M100 MG PO (08:00)
[2025-07-31] MEDS ORDERED: NITROFURANTOIN MONOHYD MACROCR 100 MG CAP PO SCH (08:00)
[2025-07-31] MEDS ORDERED: LORazepam 0.5 MG TAB PO ONE (09:45)
[2025-07-31] MEDS ORDERED: ZOLPIDEM TARTRATE 5 MG TAB PO SCH (21:00)
[2025-08-01] MEDS ORDERED: ALPRAZolam 0.5 MG TAB PO ONE (05:45)
[2025-08-01] MEDS ORDERED: LEVOTHYROXINE SODIUM 100 MCG TAB PO ONE (06:00)
[2025-08-01 06:35] VITALS: BP 125/76
--- NOTE | 2025-08-01 15:00 | EKG ---
[facility] [address] [place] [address] Signed Normal sinus rhythm Inferior infarct (cited on or before 13-AUG-2024) T wave abnormality, consider anterior ischemia Prolonged QT Abnormal ECG When compared with ECG of 30-JUL-2025 21:22, Nonspecific T wave abnormality, worse in Lateral leads QT has shortened Confirmed by Diandra Rahman MD () on 08/01/2025 3:00:35 PM Electronically Signed By: DIANDRA RAHMAN MD 08/01/25 1500 PATIENT NAME: RIGOKELLY Electrocardiogram DATE OF : 67 PHYSICIAN: DIANDRA RAHMAN MD REPORT #: [id number] REPORT IS CONFIDENTIAL AND NOT TO BE RELEASED WITHOUT AUTHORIZATION
--- NOTE | 2025-08-01 15:00 | EKG ---
[facility] [address] [facility] [place] [address] Signed Normal sinus rhythm Inferior infarct (cited on or before 13-AUG-2024) Prolonged QT Abnormal ECG When compared with ECG of 27-AUG-2024 17:54, QT has lengthened Confirmed by Diandra Rahman MD () on 08/01/2025 3:00:02 PM Electronically Signed By: DIANDRA RAHMAN MD 08/01/25 1500 PATIENT NAME: RIGOKELLY ROMEO Electrocardiogram DATE OF : 67 PHYSICIAN: DIANDRA RAHMAN MD REPORT #: [id number] REPORT IS CONFIDENTIAL AND NOT TO BE RELEASED WITHOUT AUTHORIZATION
== END 2025-08-01 06:35 ==
LOC: ED 18:40
PROVIDERS: Family Medicine
DX: T44.7X2A Poisoning by beta-adrenoreceptor antagonists, intentional self-harm, initial encounter (principal); T43.592A Poisoning by other antipsychotics and neuroleptics, intentional self-harm, initial encounter; T43.212A Poisoning by selective serotonin and norepinephrine reuptake inhibitors, intentional self-harm, initial encounter; T43.222A Poisoning by selective serotonin reuptake inhibitors, intentional self-harm, initial encounter; E87.6 Hypokalemia; F32.A Depression, unspecified; R94.31 Abnormal electrocardiogram [ECG] [EKG]; N39.0 Urinary tract infection, site not specified; E03.9 Hypothyroidism, unspecified; I10 Essential (primary) hypertension; Z88.2 Allergy status to sulfonamides; Z91.030 Bee allergy status; Z88.1 Allergy status to other antibiotic agents; Z79.890 Hormone replacement therapy; Z79.899 Other long term (current) drug therapy
CPT/HCPCS: 36415; 80053; 80307; 81001; 83735; 84439; 84443; 84703; 85025; 87077; 87088; 87186; 93005; 93010; 96374; 96375; 99285-25; A9270; G0480; J2405; J3475; J3480; J7030

== ENCOUNTER 2025-08-31 14:16 | Emergency (ER) | payer OTHER ==
[~2025-08-31] VITALS: Ht 162.6 cm; Wt 77.3 kg
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
[~2025-08-31 14:16] MED LIST changes: +ARIPIPRAZOLE15 MG PO; +ARIPIPRAZOLE5 MG PO; +DESVENLAFAXINE25 MG PO; +DESVENLAFAXINE50 M3 PO; +ESCITALOPRAM OX10 MG PO; +ESCITALOPRAM OX20 MG PO; +MACROBID 100 M100 MG PO; +REXULTI0.5 MG PO; +VENLAFAXINE H37.5 M1 PO; +VENLAFAXINE HCL75 M1 PO
[2025-08-31] MEDS ORDERED: LEVOTHYROXINE100 MCG PO (15:11)
[2025-08-31] MEDS ORDERED: MIRTAZAPINE30 MG PO (15:11)
[2025-08-31] MEDS ORDERED: LORATADINE10 MG PO (15:11)
[2025-08-31] MEDS ORDERED: TRAZODONE HCL150 MG PO (15:11)
[2025-08-31 15:22] LABS: BLOOD/HGB, URINE NEGATIVE (Negative); KETONE, URINE >=80 (Negative); LEUK ESTERASE, URINE NEGATIVE (negative); NITRITE, URINE NEGATIVE (negative)
[2025-08-31 15:25] LABS: BASOPHILS 0.3 % (0.1-1.2); EOSINOPHILS 0.5 % (0.7-5.8); LYMPHOCYTES 29.4 % (19.3-51.7); MCH 33.3 PG (25.6-32.2); MCHC 34.3 g/dL (32.2-35.5); MCV 96.8 fL (79.4-94.8); MONOCYTES 10.0 % (4.7-12.5); NEUTROPHILS 59.5 % (34.0-71.1); RBC 4.12 M/uL (3.93-5.22)
[2025-08-31 15:35] LABS: AMPHETAMINES, URINE NEGATIVE (NEGATIVE); BARBITURATES, URINE NEGATIVE (NEGATIVE); BENZODIAZEPINE, URINE NEGATIVE (NEGATIVE); CANNABINOID, URINE NEGATIVE (NEGATIVE); COCAINE, URINE NEGATIVE (NEGATIVE); ECSTASY, URINE POSITIVE (NEGATIVE); FENTANYL, URINE NEGATIVE (NEGATIVE); METHADONE, URINE NEGATIVE (NEGATIVE); OPIATES, URINE NEGATIVE (NEGATIVE); OXYCODONE, URINE NEGATIVE (NEGATIVE); PHENCYCLIDINE, URINE NEGATIVE (NEGATIVE)
[2025-08-31 15:48] LABS: ALCOHOL, MEDICAL <3 ng/dL (<3); ALT (SGPT) 16 U/L (14-59); AST (SGOT) 14 U/L (15-37); GLOMERULAR FILTRATION RATE,EST 92 mL/min (>60); PROTEIN, TOTAL 7.2 g/dL (6.4-8.2); TSH, 3RD GENERATION 4.330 uIU/mL (0.358-3.740); UREA NITROGEN 13 mg/dL (7-18)
[2025-08-31] MEDS ORDERED: ONDANSETRON 4 MG TAB ODT SL ONE (17:15)
[2025-08-31] MEDS ORDERED: ACETAMINOPHEN 325 MG TAB PO ONE (17:15)
[2025-08-31] MEDS ORDERED: LORazepam 1 MG TAB PO ONE (21:45)
[2025-09-01] MEDS ORDERED: ACETAMINOPHEN 325 MG TAB PO PRN (08:45)
[2025-09-01] MEDS ORDERED: LORazepam 1 MG TAB PO PRN (08:45)
[2025-09-01 12:17] VITALS: BP 108/68
--- NOTE | 2025-09-02 09:53 | EKG ---
[facility] [address] [facility] [place] [address] Signed Normal sinus rhythm Cannot rule out Anterior infarct , age undetermined Abnormal ECG When compared with ECG of 31-JUL-2025 00:00, Criteria for Inferior infarct are no longer present T wave inversion no longer evident in Anterior leads QT has shortened Confirmed by Harman Barker DO ([id number]) on 09/02/2025 9:53:17 AM Electronically Signed By: HARMAN BARKER DO 09/02/25 0953 PATIENT NAME: KELLY SIERRA Electrocardiogram DATE OF : 67 PHYSICIAN: HARMAN BARKER DO REPORT #: [id number] REPORT IS CONFIDENTIAL AND NOT TO BE RELEASED WITHOUT AUTHORIZATION
== END 2025-09-01 12:17 ==
LOC: ED 14:16
PROVIDERS: Emergency Medicine
DX: T43.211A Poisoning by selective serotonin and norepinephrine reuptake inhibitors, accidental (unintentional), initial encounter (principal); F32.A Depression, unspecified; E03.9 Hypothyroidism, unspecified; I10 Essential (primary) hypertension; Z88.2 Allergy status to sulfonamides; Z88.1 Allergy status to other antibiotic agents; Z91.030 Bee allergy status; Z79.899 Other long term (current) drug therapy
CPT/HCPCS: 36415; 80053; 80307; 81003; 84443; 85025; 93005; 93010; 99285; A9270; A9270-GY; G0480